=== PATIENT | female | born 1995 | race Caucasian/White ===

== ENCOUNTER 2016-03-02 13:59 | Emergency (ER) | payer OTHER ==
[2016-03-02 14:53] VITALS: BP 140/88
--- NOTE | 2016-03-02 15:10 | UC ---
HPI Febrile Illness - HPI Summary HPI Summary: complaint of headache and fever that started last night at 1900 eyes feel like they are burning entire body is achy mild sore throat denies cough, nasal congestion left lower jaw with dental pain and swelling that started yesterday poor appetite not drinking fluids denies N/V/D took some tylenol this morning without relief - History of Current Complaint Chief Complaint: UCHeadache Time Seen by Provider: 03/02/16 15:03 Hx Obtained From: Patient - Allergy/Home Medications Allergies/Adverse Reactions: Allergies Allergy/AdvReac Type Severity Reaction Status Date / Time Penicillins Allergy Severe Hives Verified 03/02/16 14:53 Azithromycin [From Zithromax] Allergy Intermediate Hives Verified 03/02/16 14:53 Amoxicillin [From Augmentin] Allergy Hives Verified 03/02/16 14:53 Cefaclor [From Ceclor] Allergy Hives Verified 03/02/16 14:53 Clavulanic Acid Allergy Hives Verified 03/02/16 14:53 [From Augmentin] Enalapril [From Vasotec] Allergy Unknown Verified 03/02/16 14:53 Reaction Details Home Medications: Home Medications Acetaminophen 1,000 mg PO PRN 03/02/16 [History] Thyroid Med* 03/02/16 [History] PMH/Surg Hx/FS Hx/Imm Hx Previously Healthy: Yes Endocrine/Hematology History: Reports: Hx Thyroid Disease Denies: Hx Anticoagulant Therapy, Hx Diabetes Cardiovascular History: Denies: Hx Congestive Heart Failure, Hx Deep Vein Thrombosis, Hx Hypertension , Hx Myocardial Infarction, Hx Pacemaker/ICD Respiratory History: Denies: Hx Asthma, Hx Chronic Obstructive Pulmonary Disease (COPD), Hx Lung Cancer GI History: Denies: Hx Gall Bladder Disease, Hx Gastrointestinal Bleed, Hx Ulcer, Hx Urosepsis History: Denies: Hx Kidney Stones, Hx Renal Disease Neurological History: Denies: Hx Dementia, Hx Migraine, Hx Seizures, Hx Transient Ischemic Attacks (TIA) Psychiatric History: Denies: Hx Anxiety, Hx Depression, Hx Schizophrenia, Hx Bipolar Disorder - Surgical History Surgery Procedure, Year, and Place: tubes in ears Infectious Disease History: No Infectious Disease History: Denies: Hx Hepatitis, Hx Human Immunodeficiency Virus (HIV), Traveled Outside the [place] in Last 30 Days - Family History Known Family History: Positive: None - Social History Alcohol Use: Occasionally Substance Use Type: Reports: None Smoking Status (MU): Never Smoked Tobacco Review of Systems Constitutional: Fever, Fatigue Skin: Negative Eyes: Negative ENT: Negative Respiratory: Negative Cardiovascular: Negative Gastrointestinal: Negative Genitourinary: Negative Motor: Negative Neurovascular: Negative Musculoskeletal: Negative Neurological: Headache Psychological: Negative All Other Systems Reviewed And Are Negative: Yes Physical Exam Triage Information Reviewed: Yes Appearance: Well-Nourished, Ill-Appearing Vital Signs: Initial Vital Signs Temp 103 F 03/02/16 14:48 Pulse 125 03/02/16 14:48 Resp 16 03/02/16 14:48 BP 140/88 03/02/16 14:48 Pulse Ox 99 03/02/16 14:48 Vital Signs Reviewed: Yes Eyes: Positive: Conjunctiva Clear ENT: Positive: Pharyngeal erythema, TMs normal. Negative: Nasal congestion, TM red Dental: Positive: Abscess @ - 18 and 19- erythematous edema in gum Neck: Positive: No Lymphadenopathy Respiratory: Positive: Lungs clear, Normal breath sounds, No respiratory distress Cardiovascular: Positive: RRR, No Murmur, Pulses Normal Abdomen Description: Positive: Nontender, No Organomegaly, Soft. Negative: CVA Tenderness (R), CVA Tenderness (L), Distended, Guarding Bowel Sounds: Positive: Present Musculoskeletal: Positive: No Edema Neurological: Positive: Alert Psychological Exam: Normal Skin Exam: Normal Re-Evaluation - Re-Evaluation First Eval Change: Improved Course/Dx - Course Course Of Treatment: exam completed. dental infection- will treat for infection. followup with Dentist. VS following ibuprofen 100.7,108HR - Febrile Illness Differential Diagnoses: Fever of Unknown Origin, GI Disease, Other: - influnza - Diagnoses Clinic Provider Diagnoses: dental abscess Discharge - Discharge Plan Condition: Stable Disposition: HOME Prescriptions: Clindamycin CAP* [Cleocin 150 MG CAP*] 150 mg PO QID #40 cap Patient Education Materials: Dental Abscess (ED), Fever in Adults (ED) Referrals: Aries Jay MD [Primary Care Provider] - Additional Instructions: Please take antibiotic as directed. call your dentist for further evaluation and treatment Increase fluids and rest Take acetaminophen or ibuprofen for fever or pain Please review your discharge instructions. If your symptoms do not improve please call your primary care provider or return to urgent care.
[2016-03-02] MEDS ORDERED: Ibuprofen TAB* 400 MG PO ONE (15:12)
== END 2016-03-02 15:45 | disposition home or self-care (01) ==
LOC: UCEAST 13:59
DX: K04.7 Periapical abscess without sinus (principal); Z88.1 Allergy status to other antibiotic agents; Z88.0 Allergy status to penicillin
CPT/HCPCS: 87502; 87651; 99212; A9270-GY; G0463

== ENCOUNTER 2016-08-27 21:37 | Emergency (ER) | payer MEDICAID, OTHER ==
[2016-08-27 22:23] LABS: Hematocrit 41 % (35-47); Hemoglobin 13.6 g/dl (12.0-16.0); Mean Corpuscular HGB Conc 33 g/dl (31-36); Mean Corpuscular Hemoglobin 29 pg (27-31); Mean Corpuscular Volume 88 fL (80-97); Mean Platelet Volume 9 um3 (7.4-10.4); Red Blood Count 4.67 10^6/ul (4.0-5.4); Red Cell Distribution Width 13 % (10.5-15); White Blood Count 13.5 10^3/ul (3.5-10.8)
[2016-08-27 22:39] LABS: ALT 17 U/L (7-52); AST 27 U/L (13-39); Albumin 4.3 g/dL (3.2-5.2); Alkaline Phosphatase 81 U/L (34-104); Anion Gap 7 mmol/L (2-11); BUN/Creatinine Ratio 12.4 (8-20); Blood Urea Nitrogen 11 mg/dL (6-24); C Reactive Protein 2.07 mg/L (< 5.00); CO2 Carbon Dioxide 23 mmol/L (22-32); Calcium 9.7 mg/dL (8.6-10.3); Chloride 105 mmol/L (101-111); EGFR Non-African American 79.3 (>60); Globulin 2.9 g/dL (2-4); Glucose 91 mg/dL (70-100); Lipase 18 U/L (11.0-82.0); Sodium 135 mmol/L (133-145); Total Protein 7.2 g/dL (6.4-8.9)
[2016-08-27 22:55] LABS: Urine Bacteria Absent (Absent); Urine Bilirubin Negative (Negative); Urine Glucose Negative (Negative); Urine Nitrite Negative (Negative)
[2016-08-27 23:05] LABS: TSH (Thyroid Stimulating Horm) 3.98 mcIU/mL (0.34-5.60)
[2016-08-28 00:05] VITALS: BP 96/64
--- NOTE | 2016-08-28 07:21 | RAD ---
INDICATION: Right upper quadrant pain. COMPARISON: Comparison is made with a prior CT of the abdomen from November 24, 2006. TECHNIQUE: Multiple real-time images of the right upper quadrant were obtained. FINDINGS: There are multiple gallstones present. No pericholecystic fluid or gallbladder wall thickening is seen. No intra or extrahepatic ductal distention is present. The common bile duct measured 0.5 cm in diameter. The liver is normal in size without significant focal abnormality. The pancreas is partially obscured by overlying bowel gas. The right kidney is normal in size without evidence for hydronephrosis. IMPRESSION: CHOLELITHIASIS WITHOUT SPECIFIC EVIDENCE FOR ACUTE CHOLECYSTITIS.
--- NOTE | 2016-08-28 08:45 | ED ---
Christopher Mireles Alfonso, scribed for Vasyl Ayala MD on 08/27/16 at 2207 . HPI Chest Pain - HPI Summary HPI Summary: This patient is a 20 year old female BIBA to [facility] c/o sharp and pressured mid sternal CP which began 90 minutes ago. The chest pain was "so bad I couldn't even breath" and has since become a dull pain. She also reports right-sided abdominal pain since a week ago. She rates the pain 5/10 in severity. Sx aggravated by movement and alleviated by nothing. She reports N/V, dizziness, and tingling in her lips and arms. She denies changes in BM, urinary symptoms, and mensural period symptoms. PMHx of thyroid disease for which she has AMA stopped taking medication. - History of Current Complaint Chief Complaint: EDAbdPain Time Seen by Provider: 08/27/16 21:55 Hx Obtained From: Patient Onset/Duration: Started Minutes Ago - 90 minutes, Still Present - Improved Timing: Constant, Lasting Minutes - 90 minutes Initial Severity: Moderate Current Severity: Moderate Pain Intensity: 5 Pain Scale Used: 0-10 Numeric Chest Pain Location: Mid Sternal Character: Dull/Aching - At present, Pressure/Squeezing - At onset, Sharp/ Stabbing - At onset Aggravating Factor(s): Movement Alleviating Factor(s): Nothing Associated Signs and Symptoms: Positive: Chest Pain - sharp and pressured mid sternal CP, Tingling - Lips and arms, Nausea, Abdominal Pain, Vomiting, Other: - Negative BM, urinary, and mensural period symptoms. - Allergy/Home Medications Allergies/Adverse Reactions: Allergies Allergy/AdvReac Type Severity Reaction Status Date / Time Penicillins Allergy Severe Hives Verified 03/02/16 14:53 Azithromycin [From Zithromax] Allergy Intermediate Hives Verified 03/02/16 14:53 Amoxicillin [From Augmentin] Allergy Hives Verified 03/02/16 14:53 Cefaclor [From Ceclor] Allergy Hives Verified 03/02/16 14:53 Clavulanic Acid Allergy Hives Verified 03/02/16 14:53 [From Augmentin] Enalapril [From Vasotec] Allergy Unknown Verified 03/02/16 14:53 Reaction Details PMH/Surg Hx/FS Hx/Imm Hx Endocrine/Hematology History: Reports: Hx Thyroid Disease Denies: Hx Anticoagulant Therapy, Hx Diabetes Cardiovascular History: Denies: Hx Congestive Heart Failure, Hx Deep Vein Thrombosis, Hx Hypertension , Hx Myocardial Infarction, Hx Pacemaker/ICD Respiratory History: Denies: Hx Asthma, Hx Chronic Obstructive Pulmonary Disease (COPD), Hx Lung Cancer GI History: Denies: Hx Gall Bladder Disease, Hx Gastrointestinal Bleed, Hx Ulcer, Hx Urosepsis History: Denies: Hx Kidney Stones, Hx Renal Disease Neurological History: Denies: Hx Dementia, Hx Migraine, Hx Seizures, Hx Transient Ischemic Attacks (TIA) Psychiatric History: Denies: Hx Anxiety, Hx Depression, Hx Schizophrenia, Hx Bipolar Disorder - Surgical History Surgery Procedure, Year, and Place: tubes in ears Infectious Disease History: No Infectious Disease History: Denies: Hx Hepatitis, Hx Human Immunodeficiency Virus (HIV), Traveled Outside the [place] in Last 30 Days - Family History Known Family History: Positive: Cardiac Disease, Diabetes - Social History Lives: With Family - Mother Alcohol Use: Occasionally Substance Use Type: Reports: None Smoking Status (MU): Never Smoked Tobacco Review of Systems Negative: Fever Positive: Chest Pain - sharp and pressured mid sternal CP that is now dull CP Positive: Abdominal Pain - right-sided abdominal pain since a week ago, Vomiting , Nausea, Other - Negative BM changes Positive: other - Negative urinary, and mensural period symptoms. Neurological: Other - Positive dizziness, and tingling in her lips and arms. All Other Systems Reviewed And Are Negative: Yes Physical Exam Triage Information Reviewed: Yes Vital Signs On Initial Exam: Initial Vitals Temp Pulse Resp BP Pulse Ox 98 F 64 16 119/67 100 08/27/16 21:48 08/27/16 21:48 08/27/16 21:48 08/27/16 21:48 08/27/16 21:48 Vital Signs Reviewed: Yes Appearance: Positive: Well-Appearing, No Pain Distress, Obese Skin: Positive: Warm, Skin Color Reflects Adequate Perfusion, Dry Head/Face: Positive: Normal Head/Face Inspection Eyes: Positive: Normal ENT: Positive: Normal ENT inspection Neck: Positive: Supple, Nontender Respiratory/Lung Sounds: Positive: Clear to Auscultation, Breath Sounds Present Cardiovascular: Positive: RRR Abdomen Description: Positive: Other: - Mildly tender in LUQ and RUQ Bowel Sounds: Positive: Present Musculoskeletal: Positive: Normal Neurological: Positive: Normal, Sensory/Motor Intact, Alert, Oriented to Person Place, Time, CN Intact II-III Psychiatric: Positive: Affect/Mood Appropriate - Cecilia Coma Scale Coma Scale Total: 15 Diagnostics - Vital Signs Vital Signs Temp Pulse Resp BP Pulse Ox 08/27/16 21:48 98 F 64 16 119/67 100 - Laboratory Lab Results: Lab Results 08/27/16 08/27/16 08/27/16 Range/Units 22:16 22:16 22:16 WBC 13.5 H (3.5-10.8) 10^3/ul RBC 4.67 (4.0-5.4) 10^6/ul Hgb 13.6 (12.0-16.0) g/dl Hct 41 (35-47) % MCV 88 (80-97) fL MCH 29 (27-31) pg MCHC 33 (31-36) g/dl RDW 13 (10.5-15) % Plt Count 250 (150-450) 10^3/ul MPV 9 (7.4-10.4) um3 Neut % (Auto) 73.2 (38-83) % Lymph % (Auto) 17.6 L (25-47) % Lewis % (Auto) 5.9 (1-9) % Eos % (Auto) 2.5 (0-6) % Baso % (Auto) 0.8 (0-2) % Absolute Neuts (auto) 9.9 H (1.5-7.7) 10^3/ul Absolute Lymphs (auto) 2.4 (1.0-4.8) 10^3/ul Absolute Monos (auto) 0.8 (0-0.8) 10^3/ul Absolute Eos (auto) 0.3 (0-0.6) 10^3/ul Absolute Basos (auto) 0.1 (0-0.2) 10^3/ul Absolute Nucleated RBC 0.01 10^3/ul Nucleated RBC % 0.1 D-Dimer, Quantitative (Less Than 230) ng/mL Sodium 135 (133-145) mmol/L Potassium 4.0 (3.5-5.0) mmol/L Chloride 105 (101-111) mmol/L Carbon Dioxide 23 (22-32) mmol/L Anion Gap 7 (2-11) mmol/L BUN 11 (6-24) mg/dL Creatinine 0.89 (0.51-0.95) mg/dL Est GFR ( Amer) 102.0 (>60) Est GFR (Non-Af Amer) 79.3 (>60) BUN/Creatinine Ratio 12.4 (8-20) Glucose 91 (70-100) mg/dL Lactic Acid 1.0 (0.5-2.0) mmol/L Calcium 9.7 (8.6-10.3) mg/dL Total Bilirubin 0.50 (0.2-1.0) mg/dL AST 27 (13-39) U/L ALT 17 (7-52) U/L Alkaline Phosphatase 81 (34-104) U/L Troponin I 0.00 (<0.04) ng/mL C-Reactive Protein 2.07 (< 5.00) mg/L Total Protein 7.2 (6.4-8.9) g/dL Albumin 4.3 (3.2-5.2) g/dL Globulin 2.9 (2-4) g/dL Albumin/Globulin Ratio 1.5 (1-3) Lipase 18 (11.0-82.0) U/L TSH 3.98 (0.34-5.60) mcIU/mL Beta HCG, Quant < 0.60 mIU/mL Urine Color Urine Appearance Urine pH (5-9) Ur Specific [place] (1.010-1.030) Urine Protein (Negative) Urine Ketones (Negative) Urine Blood (Negative) Urine Nitrate (Negative) Urine Bilirubin (Negative) Urine Urobilinogen (Negative) Ur Leukocyte Esterase (Negative) Urine WBC (Auto) (Absent) Urine RBC (Auto) (Absent) Ur Squamous Epith Cells (Absent) Urine Bacteria (Absent) Urine Glucose (Negative) 08/27/16 08/27/16 Range/Units 22:16 22:42 WBC (3.5-10.8) 10^3/ul RBC (4.0-5.4) 10^6/ul Hgb (12.0-16.0) g/dl Hct (35-47) % MCV (80-97) fL MCH (27-31) pg MCHC (31-36) g/dl RDW (10.5-15) % Plt Count (150-450) 10^3/ul MPV (7.4-10.4) um3 Neut % (Auto) (38-83) % Lymph % (Auto) (25-47) % Lewis % (Auto) (1-9) % Eos % (Auto) (0-6) % Baso % (Auto) (0-2) % Absolute Neuts (auto) (1.5-7.7) 10^3/ul Absolute Lymphs (auto) (1.0-4.8) 10^3/ul Absolute Monos (auto) (0-0.8) 10^3/ul Absolute Eos (auto) (0-0.6) 10^3/ul Absolute Basos (auto) (0-0.2) 10^3/ul Absolute Nucleated RBC 10^3/ul Nucleated RBC % D-Dimer, Quantitative < 200 (Less Than 230) ng/mL Sodium (133-145) mmol/L Potassium (3.5-5.0) mmol/L Chloride (101-111) mmol/L Carbon Dioxide (22-32) mmol/L Anion Gap (2-11) mmol/L BUN (6-24) mg/dL Creatinine (0.51-0.95) mg/dL Est GFR ( Amer) (>60) Est GFR (Non-Af Amer) (>60) BUN/Creatinine Ratio (8-20) Glucose (70-100) mg/dL Lactic Acid (0.5-2.0) mmol/L Calcium (8.6-10.3) mg/dL Total Bilirubin (0.2-1.0) mg/dL AST (13-39) U/L ALT (7-52) U/L Alkaline Phosphatase (34-104) U/L Troponin I (<0.04) ng/mL C-Reactive Protein (< 5.00) mg/L Total Protein (6.4-8.9) g/dL Albumin (3.2-5.2) g/dL Globulin (2-4) g/dL Albumin/Globulin Ratio (1-3) Lipase (11.0-82.0) U/L TSH (0.34-5.60) mcIU/mL Beta HCG, Quant mIU/mL Urine Color Yellow Urine Appearance Clear Urine pH 7.0 (5-9) Ur Specific [place] 1.021 (1.010-1.030) Urine Protein Negative (Negative) Urine Ketones Negative (Negative) Urine Blood Negative (Negative) Urine Nitrate Negative (Negative) Urine Bilirubin Negative (Negative) Urine Urobilinogen Negative (Negative) Ur Leukocyte Esterase Trace H (Negative) Urine WBC (Auto) Trace(0-5/hpf) (Absent) Urine RBC (Auto) 1+(3-5/hpf) H (Absent) Ur Squamous Epith Cells Present H (Absent) Urine Bacteria Absent (Absent) Urine Glucose Negative (Negative) Result Diagrams: 08/27/16 22:16 08/27/16 22:16 Lab Statement: Any lab studies that have been ordered have been reviewed, and results considered in the medical decision making process. - EKG 2226 Cardiac Rate: NL - BPM 57 EKG Rhythm: Sinus Rhythm - Additional Comments Diagnostic Additional Comments: US Gallbladder : Pending official radiologist interpretation. Chest Pain Course/Dx - Course Course Of Treatment: was feeling a bit better by the time she got to the ED. She had had vague abdominal pain for several days and then had sudden low midsternal CP about 90 minutes prior to arrival. Her exam revealed some mild tenderness in the epigastrium and RUQ. Labs were negative including a d- dimer and U/S of her gallbladder is pending. Assuming that is negative, i expect she will be D/C'd. She likely had some reflux or biliary colic. - Diagnoses Provider Diagnoses: Epigastric abdominal pain Discharge - Discharge Plan Condition: Stable Disposition: HOME Patient Education Materials: Biliary Colic (ED), Abdominal Pain (ED) Referrals: Mitch Galvez MD [Medical Doctor] - If Needed Aries Jay MD [Primary Care Provider] - 3 Days Additional Instructions: Follow a bland diet. Follow up with surgery (Dr. Galvez) if needed. The documentation as recorded by the Christopher johnson Alfonso accurately reflects the service I personally performed and the decisions made by me, Vasyl Ayala MD.
--- NOTE | 2016-09-10 06:27 | ED ---
Deshawn Mireles Rebecca, scribed for Christopher Lee MD on 08/28/16 at 0008 . Progress - Progress Note Progress Note: Pt was signed out from Dr. Ayala. Gallbladder US reveals: Cholelithiasis seen on decubitus images. NO mural thickening or pericholecystic fluid seen. Normal appearance of the liver, CBD and right kidney. Re-Evaluation - Re-Evaluation First Eval Re-Evaluation Time: 00:17 Change: Improved Comment: Discussed US results and D/C plan with pt. Course/Dx - Course Course Of Treatment: Pt will be D/C to home with Dx of biliary colic and a follow up with surgery, as needed with instructions to follow a bland diet. - Diagnoses Provider Diagnoses: Biliary colic The documentation as recorded by the Deshawn johnson Rebecca accurately reflects the service I personally performed and the decisions made by , Christopher Lee MD.
== END 2016-08-28 00:25 | disposition home or self-care (01) ==
LOC: ED 21:37
DX: K80.50 Calculus of bile duct without cholangitis or cholecystitis without obstruction (principal); R10.13 Epigastric pain; R11.2 Nausea with vomiting, unspecified; R42 Dizziness and giddiness; Z32.02 Encounter for pregnancy test, result negative; R20.2 Paresthesia of skin; E07.9 Disorder of thyroid, unspecified; Z88.1 Allergy status to other antibiotic agents; Z88.0 Allergy status to penicillin
CPT/HCPCS: 36415; 76705; 80053; 81003; 81015; 83605; 83690; 84443; 84484; 84702; 85025; 85379; 86140; 87086; 93005; 99283

== ENCOUNTER 2016-09-16 10:54 | Emergency (ER) | payer MEDICAID ==
[2016-09-16 11:14] VITALS: BP 122/77
--- NOTE | 2016-09-16 11:27 | UC ---
Abdominal Pain Female HPI - HPI Summary HPI Summary: Pt is a 20 yo female presents with report of tactile fever last night. Pt states took APAP atpprox 6am with relief. Pt denies any pain. Pt denies cp, sob , abd pain. Pt reports occasional nausea with po. Pt state was diagnosed with gallstones approx 1 month ago. Pt awaiting for referral to surgery through her doctor at [facility]. Pt states read online that gallstone can become infected and then pts develop fever, so pt came for eval of this. Pt without any complaints at time of eval Pt's medications reviewed at this visit. - History of Current Complaint Chief Complaint: UCChestPain Stated Complaint: CHEST PAIN,CHEST CONGESTION Time Seen by Provider: 09/16/16 11:20 Hx Obtained From: Patient, Medical Records ?: No Onset/Duration: Gradual Onset Timing: Constant Severity Initially: Mild Location: Other - no pain at present Aggravating Factor(s): Food Alleviating Factor(s): Other: - apap for fever Associated Signs and Symptoms: Positive: Fever. Negative: Diaphoresis, Cough, Constipation Allergies/Adverse Reactions: Allergies Allergy/AdvReac Type Severity Reaction Status Date / Time Penicillins Allergy Severe Hives Verified 03/02/16 14:53 Azithromycin [From Zithromax] Allergy Intermediate Hives Verified 03/02/16 14:53 Amoxicillin [From Augmentin] Allergy Hives Verified 03/02/16 14:53 Cefaclor [From Ceclor] Allergy Hives Verified 03/02/16 14:53 Clavulanic Acid Allergy Hives Verified 03/02/16 14:53 [From Augmentin] Enalapril [From Vasotec] Allergy Unknown Verified 03/02/16 14:53 Reaction Details PMH/Surg Hx/FS Hx/Imm Hx Previously Healthy: Yes Other History Of: Negative For: HIV, Hepatitis B, Hepatitis C, Anticoagulant Therapy - Surgical History Surgical History: Yes Surgery Procedure, Year, and Place: tubes in ears - Family History Known Family History: Positive: Cardiac Disease, Diabetes - Social History Occupation: Employed Full-time Lives: With Family Alcohol Use: Occasionally Substance Use Type: None Smoking Status (MU): Never Smoked Tobacco - Immunization History Most Recent Influenza Vaccination: 02/22/14 Most Recent Tetanus Shot: 04/26/14 Most Recent Pneumonia Vaccination: none Review of Systems Constitutional: Fever Skin: Negative Eyes: Negative ENT: Negative Respiratory: Negative Cardiovascular: Negative Gastrointestinal: Negative Genitourinary: Negative Motor: Negative Neurovascular: Negative Musculoskeletal: Negative Neurological: Negative Psychological: Negative All Other Systems Reviewed And Are Negative: Yes Physical Exam Triage Information Reviewed: Yes Appearance: Well-Appearing, No Pain Distress, Well-Nourished Vital Signs: Initial Vital Signs Temp 97.7 F 09/16/16 11:05 Pulse 93 09/16/16 11:05 Resp 16 09/16/16 11:05 BP 122/77 09/16/16 11:05 Pulse Ox 100 09/16/16 11:05 Eye Exam: Normal Eyes: Positive: Conjunctiva Clear, Conjunctiva Inflamed ENT Exam: Normal ENT: Positive: Normal ENT inspection, Nasal congestion, TMs normal - manual removed cerumen left ear - soft TM and canal wnl Dental Exam: Normal Neck exam: Normal Neck: Positive: Supple, Nontender, No Lymphadenopathy Respiratory Exam: Normal Respiratory: Positive: Chest non-tender, Lungs clear, Normal breath sounds, No respiratory distress Cardiovascular Exam: Normal Cardiovascular: Positive: RRR, No Murmur, Pulses Normal Abdominal Exam: Normal Abdomen Description: Positive: Nontender - abd soft + BS neg Dixon's no guarding, no rebound, No Organomegaly, Soft, Bruit Bowel Sounds: Positive: Present Musculoskeletal Exam: Normal Musculoskeletal: Positive: Strength Intact Neurological Exam: Normal Neurological: Positive: Alert, Muscle Tone Normal Psychological Exam: Normal Psychological: Positive: Normal Response To Family Skin Exam: Normal Abd Pain Female Course/Dx - Course Course Of Treatment: Pt with episode of fever last night. Pt with h/o gallstones. Pt with stable vital signs and non concerning exam without pain. reviewed at length precautions with pt. will discharge home with referral to surgery. pt comfortable and in agreement with plan - Differential Dx/Diagnosis Provider Diagnoses: fever - resolved. gall stones Discharge - Discharge Plan Condition: Stable Disposition: HOME Patient Education Materials: Gallstones (ED), Fever in Adults (ED) Referrals: Mynor Danielle MD [Medical Doctor] - Aries Jay MD [Primary Care Provider] - Additional Instructions: - Stay well hydrated. Drink plenty of non-alcoholic, non-caffinated beverage - Eat small, frequent meals. Avoid fatty foods (dairy products, fried foods) - Okay to alternate ibuprofen (advil, motrin) and tylenol every 3 hours for fever. Take with food - If you develop right upper belly pain with fever, vomiting, uncontrolled pain - it is recommended you go to the emergency department - you have been given the name of a surgeon for referral of your gallstones - you may contact this surgeon or follow-up with your provider with [facility]
== END 2016-09-16 12:01 | disposition home or self-care (01) ==
LOC: UCEAST 10:54
DX: R50.9 Fever, unspecified (principal); K80.80 Other cholelithiasis without obstruction
CPT/HCPCS: 93005; 99211; G0463

== ENCOUNTER 2016-10-02 20:49 | Emergency (ER) | payer MEDICAID ==
[2016-10-02 21:05] VITALS: BP 134/99
--- NOTE | 2016-10-02 21:25 | RAD ---
INDICATION: Intracranial injury COMPARISON: CT brain March 01, 2013 TECHNIQUE: Noncontrast axial source images were acquired from the skull base to the vertex. FINDINGS: Ventricles/sulci: The ventricles and cisterns are normal in size and configuration for age. Brain parenchyma: There is no focal parenchymal finding, evidence of intracranial mass, or intracranial mass effect. Intracranial hemorrhage:None. Extra-axial spaces: There are no abnormal extra axial fluid collections or evidence of extra-axial mass. Calvarium: There is no calvarial fracture or other calvarial abnormality. Scalp: There is no evidence of scalp or extracalvarial soft tissue abnormality. Paranasal sinuses/mastoid: The paranasal sinuses and mastoid air cells are clear. Other: None. IMPRESSION: NEGATIVE EXAMINATION
--- NOTE | 2016-10-02 21:32 | UC ---
Head Injury HPI - HPI Summary HPI Summary: Pt was sleeping on her side 4 days ago, child dropped a bottle of iced tea onto her L frontal skull from a height of 4-5 feet. No amnesia, LOC, vomiting, or confusion. Remembers entire event, no dizziness. Since then has mild SCALES and blurred vision on left side of L visual field, especially at lateral extremes of gaze. No diplopia. - History Of Current Complaint Hx Obtained From: Patient Hx Last Menstrual Period: Currently menstruating ?: No Onset/Duration: Sudden Onset Severity Currently: Mild Character: Dull, Pressure Aggravating Factor(s): Nothing Alleviating Factor(s): Nothing Associated Signs And Symptoms: Negative: Confusion, Memory Loss, Seizure, Neck Pain, Nausea, Vomiting <Gloria Schroeder - Last Filed: 10/02/16 21:26> <Daniela Dickinson - Last Filed: 10/02/16 22:13> - History Of Current Complaint Chief Complaint: UCHeadInjury Stated Complaint: HEAD INJURY/BLURRY VISION Time Seen by Provider: 10/02/16 21:14 - Allergies/Home Medications Allergies/Adverse Reactions: Allergies Allergy/AdvReac Type Severity Reaction Status Date / Time Penicillins Allergy Severe Hives Verified 03/02/16 14:53 Azithromycin [From Zithromax] Allergy Intermediate Hives Verified 03/02/16 14:53 Amoxicillin [From Augmentin] Allergy Hives Verified 03/02/16 14:53 Cefaclor [From Ceclor] Allergy Hives Verified 03/02/16 14:53 Clavulanic Acid Allergy Hives Verified 03/02/16 14:53 [From Augmentin] Enalapril [From Vasotec] Allergy Unknown Verified 03/02/16 14:53 Reaction Details Home Medications: Home Medications Advil Liquigels 1 cap PO PRN 10/02/16 [History] PMH/Surg Hx/FS Hx/Imm Hx Previously Healthy: Yes Other History Of: Negative For: HIV, Hepatitis B, Hepatitis C, Anticoagulant Therapy - Surgical History Surgical History: Yes Surgery Procedure, Year, and Place: tubes in ears - Family History Known Family History: Positive: Cardiac Disease, Diabetes - Social History Lives: With Family Alcohol Use: Occasionally Substance Use Type: None Smoking Status (MU): Never Smoked Tobacco - Immunization History Most Recent Influenza Vaccination: 12/24/14 Most Recent Tetanus Shot: 04/26/14 Most Recent Pneumonia Vaccination: none <Gloria Schroeder - Last Filed: 10/02/16 21:26> Review of Systems Constitutional: Negative Skin: Negative Eyes: Blurred Vision ENT: Negative Respiratory: Negative Cardiovascular: Negative Gastrointestinal: Negative Genitourinary: Negative Motor: Negative Neurovascular: Negative Musculoskeletal: Negative Neurological: Headache Psychological: Negative All Other Systems Reviewed And Are Negative: Yes <Gloria Schroeder - Last Filed: 10/02/16 21:26> Physical Exam Triage Information Reviewed: Yes Appearance: Well-Appearing, No Pain Distress, Well-Nourished Vital Signs: Initial Vital Signs Temp 98.6 F 10/02/16 20:59 Pulse 70 10/02/16 20:59 Resp 18 10/02/16 20:59 BP 134/99 10/02/16 20:59 Pulse Ox 99 10/02/16 20:59 Vital Signs Reviewed: Yes Eye Exam: Other - PERRL, EOM-I Eyes: Positive: Conjunctiva Clear, Other: - limited fundoscopic exam, no bleeding in retina noted ENT Exam: Normal ENT: Positive: Normal ENT inspection, Hearing grossly normal, Pharynx normal, TMs normal Dental Exam: Normal Neck exam: Normal Neck: Positive: Supple, Nontender, No Lymphadenopathy Respiratory Exam: Normal Respiratory: Positive: Chest non-tender, Lungs clear, Normal breath sounds, No respiratory distress, No accessory muscle use Cardiovascular Exam: Normal Cardiovascular: Positive: RRR, No Murmur Musculoskeletal Exam: Normal Neurological Exam: Normal Neurological: Positive: Alert Psychological Exam: Normal Skin Exam: Normal <Gloria Schroeder - Last Filed: 10/02/16 21:26> Vital Signs: Initial Vital Signs Temp 98.6 F 10/02/16 20:59 Pulse 70 10/02/16 20:59 Resp 18 10/02/16 20:59 BP 134/99 10/02/16 20:59 Pulse Ox 99 10/02/16 20:59 <Daniela Dickinson - Last Filed: 10/02/16 22:13> Head Injury Course/Dx - Differential Dx/Diagnosis Provider Diagnoses: head contusion. blurred vision. elevated blood pressure due to discomfort <Gloria Schroeder - Last Filed: 10/02/16 21:26> Discharge <Gloria Schroeder - Last Filed: 10/02/16 21:26> <Daniela Dickinson - Last Filed: 10/02/16 22:13> - Discharge Plan Condition: Stable Disposition: HOME Patient Education Materials: Scalp Contusion in Adults (ED), Blurred Vision (ED ) Referrals: Bry oMrales MD [Medical Doctor] - Ray Turner MD [Medical Doctor] - 1 Week Additional Instructions: If Dr. Turner can't see you urgently, try calling [facility] for an appointment. If they cannot see you, please call here for help. I expect your headache to improve within the next couple of days. You can take ibuprofen or acetaminophen as needed. Attestation Statement User Type: Provider - I was available for consult. This patient was seen by the NITZA. The patient was not presented to, seen by, or examined by me. -Olivia <Dainela Dickinson - Last Filed: 10/02/16 22:13>
== END 2016-10-02 21:40 | disposition home or self-care (01) ==
LOC: UCEAST 20:49
DX: H53.8 Other visual disturbances (principal); S00.93XA Contusion of unspecified part of head, initial encounter; R03.0 Elevated blood-pressure reading, without diagnosis of hypertension; W20.8XXA Other cause of strike by thrown, projected or falling object, initial encounter; Y92.9 Unspecified place or not applicable; Z88.0 Allergy status to penicillin
CPT/HCPCS: 70450; 99211; G0463

== ENCOUNTER 2016-10-06 14:43 | Observation (INO) | payer MEDICAID, OTHER ==
[2016-10-06] MEDS ORDERED: Aspirin Low Dose CHEW TAB* 81 MG PO ONE (16:20)
[2016-10-06] MEDS ORDERED: NS 0.9% 1000 ML* 1,000 ML IV ONE (18:01)
[2016-10-06] MEDS ORDERED: Ondansetron INJ* 2 MG/ML VIAL IV ONE (18:01)
[2016-10-06 18:10] LABS: Hematocrit 39 % (35-47); Hemoglobin 13.1 g/dl (12.0-16.0); Mean Corpuscular HGB Conc 33 g/dl (31-36); Mean Corpuscular Hemoglobin 30 pg (27-31); Mean Corpuscular Volume 89 fL (80-97); Mean Platelet Volume 8 um3 (7.4-10.4); Red Blood Count 4.45 10^6/ul (4.0-5.4); Red Cell Distribution Width 14 % (10.5-15); White Blood Count 6.8 10^3/ul (3.5-10.8)
--- NOTE | 2016-10-06 18:17 | ED ---
Abdominal Pain/Female - HPI Summary HPI Summary: 20F presents with abdominal pain today. She states she had sternal chest pain but that resolved and then the abdominal pain started. She states her pain is greatest in epigastric region but is radiating to the rest of her abdomen. She denies any v/d/c. She admits to nausea. She has surgery for her gallbladder scheduled on Oct 21 as has history of gallstones. The chest pain resolved in 20 mins. She has history of chest pain and states this feels the same. She denies any SOB or palpitations. She states she has never had this abdominal pain before. She denies any previous surgeries. She did not taken anything for her pain. She denies any dysuria, hematuria, flank pain, or vaginal discharge. She denies any family history of CAD. - History of Current Complaint Chief Complaint: EDChestPainROMI Stated Complaint: CHEST/STOMACH PAIN Time Seen by Provider: 10/06/16 17:41 Hx Last Menstrual Period: Currently menstruating Pain Intensity: 6 Allergies/Adverse Reactions: Allergies Allergy/AdvReac Type Severity Reaction Status Date / Time Penicillins Allergy Severe Hives Verified 10/06/16 20:45 Azithromycin [From Zithromax] Allergy Intermediate Hives Verified 10/06/16 20:45 Amoxicillin [From Augmentin] Allergy Hives Verified 10/06/16 20:45 Cefaclor [From Ceclor] Allergy Hives Verified 10/06/16 20:45 Clavulanic Acid Allergy Hives Verified 10/06/16 20:45 [From Augmentin] Enalapril [From Vasotec] Allergy Unknown Verified 10/06/16 20:45 Reaction Details Home Medications: Home Medications NK [No Home Medications Reported] 10/06/16 [History Confirmed 10/06/16] PMH/Surg Hx/FS Hx/Imm Hx Endocrine/Hematology History: Reports: Hx Thyroid Disease Denies: Hx Anticoagulant Therapy, Hx Diabetes Cardiovascular History: Denies: Hx Congestive Heart Failure, Hx Deep Vein Thrombosis, Hx Hypertension , Hx Myocardial Infarction, Hx Pacemaker/ICD Respiratory History: Denies: Hx Asthma, Hx Chronic Obstructive Pulmonary Disease (COPD), Hx Lung Cancer GI History: Denies: Hx Gall Bladder Disease, Hx Gastrointestinal Bleed, Hx Ulcer, Hx Urosepsis History: Denies: Hx Kidney Stones, Hx Renal Disease Neurological History: Denies: Hx Dementia, Hx Migraine, Hx Seizures, Hx Transient Ischemic Attacks (TIA) Psychiatric History: Denies: Hx Anxiety, Hx Depression, Hx Schizophrenia, Hx Bipolar Disorder - Surgical History Surgery Procedure, Year, and Place: tubes in ears Infectious Disease History: Yes Infectious Disease History: Denies: Hx Clostridium Difficile, Hx Hepatitis, Hx Human Immunodeficiency Virus (HIV), Hx of Known/Suspected MRSA, Hx Shingles, Hx Tuberculosis, Hx Known/ Suspected VRE, Hx Known/Suspected VRSA, History Other Infectious Disease, Traveled Outside the [place] in Last 30 Days - Family History Known Family History: Positive: Cardiac Disease, Diabetes - Social History Alcohol Use: Occasionally Substance Use Type: Reports: None Smoking Status (MU): Never Smoked Tobacco Review of Systems Negative: Fever Positive: Chest Pain Negative: Shortness Of Breath, Cough Positive: Abdominal Pain, Nausea. Negative: Vomiting, Diarrhea All Other Systems Reviewed And Are Negative: Yes Physical Exam Triage Information Reviewed: Yes Vital Signs On Initial Exam: Initial Vitals Temp Pulse Resp BP Pulse Ox 98.2 F 80 17 124/86 100 10/06/16 14:56 10/06/16 14:56 10/06/16 14:56 10/06/16 14:56 10/06/16 14:56 Vital Signs Reviewed: Yes Appearance: Positive: Well-Appearing Skin: Positive: Warm, Dry Head/Face: Positive: Normal Head/Face Inspection Eyes: Positive: Normal, EOMI, CHRISTINA, Conjunctiva Clear ENT: Positive: Normal ENT inspection, Pharynx normal, TMs normal Respiratory/Lung Sounds: Positive: Clear to Auscultation, Breath Sounds Present Cardiovascular: Positive: Normal, RRR Abdomen Description: Positive: Soft, Other: - diffuse tenderness greatest in epigastric region, neg serrano Bowel Sounds: Positive: Present - Mohler Coma Scale Coma Scale Total: 15 Diagnostics - Vital Signs Vital Signs Temp Pulse Resp BP Pulse Ox 10/06/16 17:46 97.3 F 66 13 151/85 100 10/06/16 16:11 97.8 F 78 18 126/85 100 10/06/16 14:56 98.2 F 80 17 124/86 100 - Laboratory Lab Results: Lab Results 10/06/16 Range/Units 18:01 WBC 6.8 (3.5-10.8) 10^3/ul RBC 4.45 (4.0-5.4) 10^6/ul Hgb 13.1 (12.0-16.0) g/dl Hct 39 (35-47) % MCV 89 (80-97) fL MCH 30 (27-31) pg MCHC 33 (31-36) g/dl RDW 14 (10.5-15) % Plt Count 304 (150-450) 10^3/ul MPV 8 (7.4-10.4) um3 Neut % (Auto) 64.4 (38-83) % Lymph % (Auto) 26.0 (25-47) % [place] % (Auto) 6.2 (1-9) % Eos % (Auto) 2.1 (0-6) % Baso % (Auto) 1.3 (0-2) % Absolute Neuts (auto) 4.4 (1.5-7.7) 10^3/ul Absolute Lymphs (auto) 1.8 (1.0-4.8) 10^3/ul Absolute Monos (auto) 0.4 (0-0.8) 10^3/ul Absolute Eos (auto) 0.1 (0-0.6) 10^3/ul Absolute Basos (auto) 0.1 (0-0.2) 10^3/ul Absolute Nucleated RBC 0.01 10^3/ul Nucleated RBC % 0.1 Result Diagrams: 10/06/16 18:01 10/06/16 18:01 Lab Statement: Any lab studies that have been ordered have been reviewed, and results considered in the medical decision making process. - EKG No standard instances Cardiac Rate: NL EKG Rhythm: Sinus Rhythm ST Segment: Normal Abdominal Pain Fem Course/Dx - Course Course Of Treatment: 20F presents with abdominal pain today. She states she had sternal chest pain but that resolved and then the abdominal pain started. She states her pain is greatest in epigastric region but is radiating to the rest of her abdomen. She denies any v/d/c. She admits to nausea. She has surgery for her gallbladder scheduled on Oct 21 as has history of gallstones. The chest pain resolved in 20 mins. She has history of chest pain and states this feels the same. She denies any SOB or palpitations. on exam neg chest wall tenderness. ekg normal. tenderness abdominal diffusely greatest in epigastric region, neg serrano. dr fernando called and said should be admitted for repeat LFT in morning due to being elevated and then will potential do surgery or ERCP. patient understands and agrees with plan. - Diagnoses Differential Diagnosis: Positive: Appendicitis, Gall Bladder Disease, Other - gastroenteritis Provider Diagnoses: Chest pain, Abdominal pain, Cholelithiasis - Provider Notifications Discussed Care Of Patient With: dr fernando Time Discussed With Above Provider: 20:27 - patient should be admitted for potential surgery vs ERCP in morning Discharge - Discharge Plan Condition: Stable Disposition: ADMITTED TO [facility]
[2016-10-06] MEDS ORDERED: Ketorolac INJ* 30 MG/ML 1 ML VIAL IV PUSH ONE (18:20)
[2016-10-06 18:26] LABS: ALT 396 U/L (7-52); AST 381 U/L (13-39); Albumin 4.5 g/dL (3.2-5.2); Alkaline Phosphatase 217 U/L (34-104); Anion Gap 6 mmol/L (2-11); BUN/Creatinine Ratio 9.2 (8-20); Blood Urea Nitrogen 6 mg/dL (6-24); CO2 Carbon Dioxide 27 mmol/L (22-32); Calcium 9.3 mg/dL (8.6-10.3); Chloride 103 mmol/L (101-111); EGFR African American 146.6 (>60); Globulin 3.4 g/dL (2-4); Glucose 96 mg/dL (70-100); Lipase 17 U/L (11.0-82.0); Sodium 136 mmol/L (133-145); Total Protein 7.9 g/dL (6.4-8.9)
--- NOTE | 2016-10-06 19:03 | RAD ---
HISTORY: Right upper quadrant pain. COMPARISONS: Similar examination August 27, 2016 TECHNIQUE: Multiple transverse and longitudinal ultrasound images were obtained of the right upper quadrant. FINDINGS: LIVER: The liver is normal in dimensions and echogenicity. Normal hepatic and portal venous blood flow is duplicated with color flow imaging. There is no gross intrahepatic biliary duct dilatation. GALLBLADDER AND EXTRAHEPATIC BILIARY DUCT: Mobile echogenic and shadowing stones are noted in the gallbladder lumen. There is no pericholecystic fluid or gallbladder wall thickening. The common bile duct measures a maximum diameter of 5 mm. PANCREAS: The portions of the pancreas not obscured by bowel gas are normal in appearance. RIGHT KIDNEY: The right kidney is normal in size, morphology and echogenicity. AORTA AND IVC: The visualized portions are normal in appearance and not pathologically dilated. IMPRESSION: CHOLELITHIASIS WITHOUT SIGNS OF ACUTE INFLAMMATORY CHANGE OR BILIARY OBSTRUCTION.
[2016-10-06] MEDS ORDERED: Ondansetron INJ* 2 MG/ML VIAL IV PRN (20:50)
[2016-10-06] MEDS ORDERED: HYDROmorphone* 1 MG/ML 1 ML SYR IV SLOW PU PRN (20:55)
[2016-10-06] MEDS: NS 0.9% 1000 ML* 1,000 ML IV SCH (22:23)
[2016-10-07 05:58] LABS: Hematocrit 35 % (35-47); Hemoglobin 11.8 g/dl (12.0-16.0); Mean Corpuscular HGB Conc 34 g/dl (31-36); Mean Corpuscular Hemoglobin 30 pg (27-31); Mean Corpuscular Volume 89 fL (80-97); Mean Platelet Volume 8 um3 (7.4-10.4); Red Blood Count 3.95 10^6/ul (4.0-5.4); Red Cell Distribution Width 14 % (10.5-15); White Blood Count 5.6 10^3/ul (3.5-10.8)
[2016-10-07 06:13] LABS: Albumin 3.4 g/dL (3.2-5.2); BUN/Creatinine Ratio 7.2 (8-20); Calcium 8.2 mg/dL (8.6-10.3); Direct Bilirubin 0.5 mg/dL (0.03-0.18); EGFR African American 136.8 (>60); EGFR Non-African American 106.4 (>60); Globulin 2.5 g/dL (2-4); Indirect Bilirubin 0.5 mg/dL (0.3-1.0); Potassium 3.9 mmol/L (3.5-5.0); Total Protein 5.9 g/dL (6.4-8.9)
[2016-10-07] MEDS: NS 0.9% 1000 ML* 1,000 ML IV SCH (06:20)
[2016-10-07] MEDS ORDERED: Famotidine IV* 10 MG/ML 2 ML (20 mg) IV SLOW PU ONE (07:32)
--- NOTE | 2016-10-07 08:36 | HP ---
HISTORY AND PHYSICAL: DATE OF ADMISSION: 10/06/16 CHIEF COMPLAINT: Epigastric and right upper quadrant abdominal pain radiating up into her chest. HISTORY OF PRESENT ILLNESS: Ms. Belinda Franz is a very pleasant 20-year-old woman with known gallstones, who has been scheduled for an elective laparoscopic cholecystectomy with Dr. Mynor Danielle on 10/21, who developed severe epigastric and chest discomfort yesterday afternoon and presented to the emergency room for further care and evaluation. She has had several episodes of this over the past several months thus prompting a workup in July, which included an ultrasound of her gallbladder, which showed cholelithiasis with multiple gallstones, but no pericholecystic fluid or gallbladder wall thickening. The common bile duct measured 0.5 cm in diameter. She also underwent a cardiac evaluation, which was normal also in the recent past during one of her episodes. On review of her laboratory studies, she has had normal liver transaminases and bilirubin and no elevated white blood cell count. Last night when seen in the emergency room, she was noted to be afebrile. An EKG was read as normal sinus rhythm without acute changes. Her troponin levels were normal. She was noted to have a total bilirubin of 2.5, elevated AST and ALT of 381 and 396 respectively with alkaline phosphatase 217. Her lipase is normal. Beta- hCG was also normal. Gallbladder ultrasound was repeated. This showed once again cholelithiasis without signs of acute inflammatory change or biliary duct obstruction with the common bile duct measuring 5 mm. At this time in light of her persistent abdominal pain and elevated liver function studies, she was admitted last night for further care and probable cholecystectomy today. PAST MEDICAL HISTORY: Hypothyroidism, personally not taking her Synthroid medicines or Synthroid, but she has not taken this in several weeks. PAST SURGICAL HISTORY: Tubes in the ear. She has had no abdominal surgery. ALLERGIES: PENICILLIN, AZITHROMYCIN, AMOXICILLIN, CEFACLOR, CLAVULANIC ACID, and ENALAPRIL. SOCIAL HISTORY: She does not smoke. She drinks alcohol on a social basis. She is not presently employed. She has two young children, ages 2 and 5. REVIEW OF SYSTEMS: Cerebrovascular: No dizziness or visual disturbance. Cardiovascular: She has no cardiac chest pain and discomfort as per above. Pulmonary: No wheezing or hemoptysis. GI: As per above. She has not had prior abdominal surgery. : No urgency or hematuria. PHYSICAL EXAMINATION GENERAL: She is a well-developed, slightly overweight female, appears to be pleasant, in no apparent distress. VITAL SIGNS: Temperature 98, pulse 50, blood pressure 103/61, respirations 18. HEENT: Sclerae are anicteric. LUNGS: Clear to auscultation with normal respiratory effort. HEART: Regular rate and rhythm without murmurs, rubs, or gallops. ABDOMEN: Soft, nondistended. No prior surgical incisions or hernias. She had diminished bowel sounds throughout. She has some mild tenderness in the epigastrium and right upper quadrant without mass, rebound, or guarding. PSYCHIATRIC: She is awake, alert, and oriented x3. She has normal judgment and insight. DIAGNOSTIC STUDIES/LAB DATA: Repeat laboratory values done this morning showed a total bilirubin down to 1 and a direct bilirubin component of 0.5. AST and ALT are down to 208 and 317 with an alkaline phosphatase of 172. IMPRESSION: Cholelithiasis with several episodes of biliary colic over the past several months. She has been originally scheduled for surgery for an elective laparoscopic cholecystectomy on 10/21 and returned to the emergency room last night with epigastric and chest pain, noted to have elevated total bilirubin and ultrasound without finding consistent with acute cholecystitis, however. White blood cell count is also normal. She feels better today and her liver profile results are trending downward. Initially, it appears that she most likely had passed a stone and now is feeling better, but last night it was not possible to determine if the obstruction would persist requiring further evaluation such as an MRCP, thus she was admitted for observation and pain management overnight with plans for appropriate workup depending on laboratory results done today. PLAN: In light of her normalizing liver profile, the plan today will be to proceed with a laparoscopic cholecystectomy with a possible cholangiogram depending on the findings at surgery. She will be kept n.p.o. IV fluids have been started. She has not been given IV antibiotics but will receive preoperative antibiotics. Dr. Danielle is available to proceed with the cholecystectomy today and I informed her of this. The procedure and plans were discussed with her and she is in agreement. The surgical risks including bleeding, infection, abscess formation, and an open procedure and injury to peritoneal and retroperitoneal structures, as well as general anesthetic risks and deep vein thrombosis were all explained. [id number]/[facility] #: [id number] [facility]NING HOSPITALCharli
[2016-10-07] MEDS ORDERED: Atracurium* 10 MG/ML 10 ML VIAL ONE (10:06)
[2016-10-07] MEDS ORDERED: fentaNYL* 50 MCG/ML 2 ML VIAL (100 MCG VIAL) ONE ×2 (10:06→13:43)
[2016-10-07] MEDS ORDERED: KETAMINE HCL* 50 MG/ML 10 ML VIAL ONE (10:07)
[2016-10-07] MEDS ORDERED: Midazolam* 1 MG/ML 5 ML VIAL (5 MG) ONE (10:07)
[2016-10-07] MEDS ORDERED: PROCHLORPERAZINE INJ 5 MG/ML 2 ML VIAL IV PRN (10:24)
[2016-10-07] MEDS ORDERED: Scopolamine 1.5 mg* PATCH TRANSDERM PRN (10:24)
[2016-10-07] MEDS ORDERED: Morphine INJ* 2 MG/ML 1 ML SYRINGE IV PRN (10:24)
[2016-10-07] MEDS ORDERED: Buffered Lidocaine 0.9% SYRIN* 5 ML/SYR SYRINGE INTRADERM ONE (10:24)
[2016-10-07] MEDS ORDERED: Bupivacaine 0.5% W/EPI SDV* 10 ML VIAL INJ ONE (11:27)
[2016-10-07] MEDS ORDERED: ceFOXitin 2 GM IVPREMIX* 2 GM/50 ML BAG ONE (11:52)
[2016-10-07] MEDS ORDERED: PROCHLORPERAZINE INJ 5 MG/ML 2 ML VIAL ONE ×2 (12:31→13:33)
[2016-10-07] MEDS ORDERED: Ondansetron INJ* 2 MG/ML VIAL ONE (12:31)
[2016-10-07] MEDS ORDERED: Dexamethasone IV* 4 MG/ML 1 ML (4 MG) ONE (12:31)
[2016-10-07] MEDS ORDERED: Lidocaine 2% PF * 5 ML VIAL ONE (12:31)
[2016-10-07] MEDS ORDERED: Ketorolac INJ* 30 MG/ML 1 ML VIAL ONE (12:31)
[2016-10-07] MEDS ORDERED: Neostigmine Methylsulfate* 2 MG/2 ML SYRINGE ONE (12:31)
[2016-10-07] MEDS ORDERED: Propofol* 10 MG/ML 20 ML BTL IV PUSH ONE (12:31)
[2016-10-07] MEDS ORDERED: Glycopyrrolate IV* 0.2 MG/ML 1 ML VIAL ONE (12:31)
[2016-10-07] MEDS ORDERED: Morphine INJ* 10 MG/ML 1 ML SYRINGE ONE (12:33)
[2016-10-07] MEDS ORDERED: Scopolamine 1.5 mg* PATCH ONE (13:33)
--- NOTE | 2016-10-07 13:33 | SURGPN ---
Brief Operative Note - Surgery Procedures: PREOP/POSTOP DX: SX GALLSTONES PROC: LAP JULIENNE SURG: MECENAS ASSIST: NONE ANES: GETA; FELLOWS EBL: MIN IVF: LR SPEC: GB DRAIN: NONE COMPL: NONE COND: STABLE, EXTUBATED TO RR.
[2016-10-07] MEDS ORDERED: Ibuprofen TAB* 600 MG PO PRN (13:34)
[2016-10-07] MEDS ORDERED: HYDROcodone/ACETAMIN 5-325 MG* 1 TAB PO PRN ×2 (13:34)
[2016-10-07] MEDS: fentaNYL* 50 MCG/ML 2 ML VIAL (100 MCG VIAL) IV PRN ×2 (13:54→14:25)
[2016-10-07] MEDS ORDERED: oxyCODONE/Acetamin 5/325 MG* TAB ONE (14:52)
[2016-10-07] MEDS: oxyCODONE/Acetamin 5/325 MG* TAB PO PRN ×2 (14:53→14:54)
[2016-10-07 16:09] VITALS: BP 115/71
--- NOTE | 2016-10-08 05:55 | OP ---
CC: [place] * DATE OF OPERATION: 10/07/16 - ROOM #339 DATE OF : 89 SURGEON: Mynor Danielle MD CIRCUIT MANAGER: None. ANESTHESIOLOGIST: Christopher Magallon MD ANESTHESIA: General endotracheal. PRE-OP DIAGNOSIS: Symptomatic cholelithiasis. POST-OP DIAGNOSIS: Symptomatic cholelithiasis. OPERATIVE PROCEDURE: Laparoscopic cholecystectomy. ESTIMATED BLOOD LOSS: Minimal. IV FLUIDS: Crystalloids. SPECIMENS: Gallbladder. DRAINS: None. COMPLICATIONS: None. COUNTS: Instrument, needle, and sponge counts were correct. DESCRIPTION OF PROCEDURE: The patient was brought to the operating room and placed on the table supine. Sequential compression devices were placed on both lower extremities and general anesthesia was administered. She was prepped and draped in the usual sterile fashion and time-out was performed. Local anesthetic was infiltrated into the skin and soft tissue prior to making each incision. A transumbilical vertical incision was created using an open technique. The peritoneal cavity was accessed. A 5-mm trocar was placed and carbon dioxide was insufflated to a pressure of 15 mmHg. Under direct visualization, two 5-mm trocars were placed in the right upper quadrant and an 11-mm trocar was placed in the subxiphoid position. Inspection of the gallbladder revealed that it was not acutely inflamed. There were some chronic inflammatory changes associated with adhesions of lesser omentum to the gallbladder neck. The gallbladder fundus was grasped and retracted superiorly and the infundibulum was retracted laterally and inferiorly and then the peritoneum investing the gallbladder was incised and peeled away using combination of sharp dissection and cautery. The cystic duct and cystic artery were each bluntly dissected out making sure that adequate lateral dissection was performed along the gallbladder wall so that a critical view could be obtained. Subsequently, the cystic artery was clipped and divided and the cystic duct was doubly clipped and divided. The gall-bladder was then freed from attachments to the liver using the hook cautery and staying in an avascular plane. Once the gallbladder was freed, it was placed into an endoscopic retrieval bag and retrieved through the subxiphoid port site. The inspection revealed the hemostasis to be excellent and there were no complications noted. The patient tolerated the procedure well, was extubated, and transferred to the recovery room in a stable condition. [id number]/[facility] #: [id number] [facility] HOSPITALCharli
[2016-10-10] MEDS ORDERED: Scopolomine PATCH Remove* 1 NOTE MISC PATCH OFF ONE (10:28)
== END 2016-10-07 16:29 | disposition home or self-care (01) ==
LOC: ED 14:43 → SSU 20:45
PROVIDERS: ADMIT Surgery; ATTEND Surgery
DX: K80.10 Calculus of gallbladder with chronic cholecystitis without obstruction (principal); R10.11 Right upper quadrant pain; R07.9 Chest pain, unspecified
CPT/HCPCS: 36415; 76705; 80048; 80053; 80076; 83605; 83690; 84484; 84702; 85025; 86141; 88304; 93005; 94760; 96374; 96375; 99284; A9270-GY; G0378; J0694; J0780; J1100; J1885; J2250; J2270; J2405; J2704; J3010

== ENCOUNTER 2016-10-21 19:25 | Emergency (ER) | payer OTHER ==
[2016-10-21] MEDS ORDERED: NS 0.9% 1000 ML* 1,000 ML IV ONE (21:09)
[2016-10-21] MEDS ORDERED: NS 0.9% 1000 ML*IV.FLUID IV ONE (21:27)
[2016-10-21] MEDS ORDERED: Ondansetron INJ* 2 MG/ML VIAL IV ONE (21:27)
[2016-10-21] MEDS ORDERED: Ketorolac INJ* 30 MG/ML 1 ML VIAL IV ONE (21:27)
[2016-10-21] MEDS ORDERED: diPHENhydraMINE IV* 50 MG/ML 1 ml VIAL (BENADRYL) IV ONE (21:32)
[2016-10-21] MEDS ORDERED: metroNIDAZOLE IV 500 MG/100ML* 500 MG/100 ML BAG IVPB ONE (21:38)
[2016-10-21] MEDS ORDERED: Ciprofloxacin 400MG IVPREMIX(* 400 MG/200 ML BAG ONE (21:38)
[2016-10-21] MEDS ORDERED: Ciprofloxacin 400MG IVPREMIX(* 400 MG/200 ML BAG IVPB ONE (21:38)
[2016-10-21 21:41] LABS: Hematocrit 38 % (35-47); Hemoglobin 13.2 g/dl (12.0-16.0); Mean Corpuscular HGB Conc 35 g/dl (31-36); Mean Corpuscular Hemoglobin 30 pg (27-31); Mean Corpuscular Volume 86 fL (80-97); Mean Platelet Volume 8 um3 (7.4-10.4); Red Blood Count 4.48 10^6/ul (4.0-5.4); Red Cell Distribution Width 14 % (10.5-15); White Blood Count 17.4 10^3/ul (3.5-10.8)
[2016-10-21 21:58] LABS: ALT 26 U/L (7-52); AST 21 U/L (13-39); Albumin 4.7 g/dL (3.2-5.2); Alkaline Phosphatase 135 U/L (34-104); Amylase 47 U/L (29-103); Anion Gap 6 mmol/L (2-11); BUN/Creatinine Ratio 9.5 (8-20); Blood Urea Nitrogen 8 mg/dL (6-24); C Reactive Protein 18.45 mg/L (< 5.00); CO2 Carbon Dioxide 27 mmol/L (22-32); Calcium 9.6 mg/dL (8.6-10.3); Chloride 104 mmol/L (101-111); EGFR African American 108.1 (>60); Globulin 3.1 g/dL (2-4); Glucose 86 mg/dL (70-100); Lipase 18 U/L (11.0-82.0); Potassium 3.9 mmol/L (3.5-5.0); Sodium 137 mmol/L (133-145); Total Protein 7.8 g/dL (6.4-8.9)
--- NOTE | 2016-10-21 22:02 | RAD ---
INDICATION: Pain at the umbilicus in a patient who underwent cholecystectomy October 07, 2016 COMPARISON: None. TECHNIQUE: Single AP portable view of the chest was obtained. FINDINGS: Image quality is compromised due to the relative inferiority of a portable chest x-ray. The heart and mediastinum exhibit normal size and contour. The lungs are grossly clear. There is no evidence of a large pleural effusion. Visualized bones are normal for the patient's age. IMPRESSION: No radiographic evidence for acute cardiopulmonary abnormality on this portable chest x-ray.
[2016-10-21] MEDS ORDERED: Iohexol 300* (CONTRAST) 10 ML SDV IV ONE (22:19)
[2016-10-21 22:22] LABS: Urine Bilirubin Negative (Negative); Urine Glucose Negative (Negative); Urine Nitrite Negative (Negative)
[2016-10-21] MEDS ORDERED: Acetaminophen SUPP* 650 MG SUPP PR ONE (23:19)
[2016-10-22 02:49] LABS: Erythrocyte Sed Rate 29 mm/Hr (0-14)
[2016-10-22] MEDS ORDERED: Sulfamethox/Trimethoprim DS 800/160* TAB PO ONE (03:51)
[2016-10-22 05:05] VITALS: BP 109/68
--- NOTE | 2016-10-22 05:32 | ED ---
Hitesh Mireles Thomas, scribed for Alexa Bennett MD on 10/21/16 at 2129 . Abdominal Pain/Female - HPI Summary HPI Summary: The pt is a 21 y/o F presenting to the ED c/o abd pain that began two days ago s /p cholecystectomy that was performed on 10/07/16. The pain is constant and is located in her umbilicus. The pain also radiates to her back. The pain is described as throbbing and she rates the pain 10/10. The pain has worsened in the last few hours. The pain is aggravated and alleviated by nothing. Pt additionally c/o erythema (on her umbilicus and began two days ago and is enlarging), shakes (onset today in the ED), chills (onset today in the ED), drainage to the incision site (reddish and pus in color that began yesterday), nausea, and urticaria. Pt denies cough, SOB, CP, calf pain, and vomiting. She took Benadryl 25mg PO today at 20:00 for hives that she gets frequently. She saw her surgeon Dr. Danielle yesterday, who evaluated her, although her erythematous area was smaller in size. She also notes that he also pulled something hard out of belly button that was hard and crusty. After her surgery , she was not prescribed an antibiotic. She was seen by a PA at her PCPs office today, and she was prescribed an antibiotic that she is apparently allergic to and she did not get to pharmacy to pick it up, so she has not had any antibiotics since surg. PMHx: GERD, thyroid disease, depression, and anxiety. PSHx: cholecystectomy. SHx: no smoking, occasional alcohol use, no illicit drug use. [facility] 09/26/2016. G=2, P=2, A=0. She is not on control. - History of Current Complaint Chief Complaint: EDGeneral Stated Complaint: POSS ABD INFECTION FOLLOWING SURGERY Time Seen by Provider: 10/21/16 20:29 Hx Obtained From: Patient Hx Last Menstrual Period: 09/26/16 ?: No Onset/Duration: Gradual Onset, Lasting Days - 2, Still Present, Worse Since - a few hours ago Timing: Constant Severity Initially: Moderate Severity Currently: Severe Pain Intensity: 10 Pain Scale Used: 0-10 Numeric Location: Umbilical Radiates: Yes Radiates to: Back Character: Other: - Throbbing Aggravating Factor(s): Nothing Alleviating Factor(s): Nothing Associated Signs and Symptoms: Positive: Nausea, Other: - POS: erythema, shakes , chills, drainage to the incision site, nausea, urticaria; NEG: SOB, calf pain. Negative: Cough, Chest Pain, Vomiting Allergies/Adverse Reactions: Allergies Allergy/AdvReac Type Severity Reaction Status Date / Time Penicillins Allergy Severe Hives Verified 10/21/16 19:50 Azithromycin [From Zithromax] Allergy Intermediate Hives Verified 10/21/16 19:50 Amoxicillin [From Augmentin] Allergy Hives Verified 10/21/16 19:50 Cefaclor [From Ceclor] Allergy Hives Verified 10/21/16 19:50 Clavulanic Acid Allergy Hives Verified 10/21/16 19:50 [From Augmentin] Enalapril [From Vasotec] Allergy Unknown Verified 10/21/16 19:50 Reaction Details PMH/Surg Hx/FS Hx/Imm Hx Previously Healthy: No Endocrine/Hematology History: Reports: Hx Thyroid Disease Denies: Hx Anticoagulant Therapy, Hx Diabetes Cardiovascular History: Denies: Hx Congestive Heart Failure, Hx Deep Vein Thrombosis, Hx Hypertension , Hx Myocardial Infarction, Hx Pacemaker/ICD Respiratory History: Reports: Hx Seasonal Allergies Denies: Hx Asthma, Hx Chronic Obstructive Pulmonary Disease (COPD), Hx Lung Cancer GI History: Reports: Hx Gall Bladder Disease, Hx Gastroesophageal Reflux Disease Denies: Hx Gastrointestinal Bleed, Hx Ulcer, Hx Urosepsis History: Denies: Hx Kidney Stones, Hx Renal Disease Sensory History: Denies: Hx Contacts or Glasses, Hx Hearing Aid Opthamlomology History: Denies: Hx Contacts or Glasses Neurological History: Denies: Hx Dementia, Hx Migraine, Hx Seizures, Hx Transient Ischemic Attacks (TIA) Psychiatric History: Reports: Hx Anxiety, Hx Depression Denies: Hx Schizophrenia, Hx Bipolar Disorder - Surgical History Surgery Procedure, Year, and Place: tubes in ears Infectious Disease History: Denies: Hx Clostridium Difficile, Hx Hepatitis, Hx Human Immunodeficiency Virus (HIV), Hx of Known/Suspected MRSA, Hx Shingles, Hx Tuberculosis, Hx Known/ Suspected VRE, Hx Known/Suspected VRSA, History Other Infectious Disease, Traveled Outside the [place] in Last 30 Days - Family History Known Family History: Positive: Cardiac Disease, Diabetes - Social History Alcohol Use: Occasionally Hx Substance Use: No Substance Use Type: Reports: None Hx Tobacco Use: No Smoking Status (MU): Never Smoked Tobacco Review of Systems Positive: Chills - onset today in the ED, Other - POS: shakes (onset today in the ED) Negative: Chest Pain Negative: Shortness Of Breath, Cough Positive: Abdominal Pain - umbilical, onset 2 days ago, s/p cholecystectomy, Nausea. Negative: Vomiting Negative: Other - NEG: calf pain Positive: Other - POS: erythema (onset two days ago and progressively worse), drainage to the incision site (reddish and pus in color), urticaria Psychological: Normal All Other Systems Reviewed And Are Negative: Yes Physical Exam Triage Information Reviewed: Yes Vital Signs On Initial Exam: Initial Vitals Temp Pulse Resp BP Pulse Ox 98.8 F 103 16 136/95 99 10/21/16 19:44 10/21/16 19:44 10/21/16 19:44 10/21/16 19:44 10/21/16 19:44 Vital Signs Reviewed: Yes Appearance: Positive: Well-Appearing, Well-Nourished, Pain Distress Skin: Positive: Warm, Skin Color Reflects Adequate Perfusion, Weeping Skin/ Lesions - umbilicus with drainage, cultured, Other - There is an erythematous region to her periumbilicus 12cm diam, outlined with skin pen; no urticaria noted Head/Face: Positive: Normal Head/Face Inspection Eyes: Positive: Conjunctiva Clear ENT: Positive: Normal ENT inspection Neck: Positive: Supple Respiratory/Lung Sounds: Positive: Clear to Auscultation, Breath Sounds Present , Other - No respiratory distress Cardiovascular: Positive: RRR, Pulses are Symmetrical in both Upper and Lower Extremities, Other - Brisk cap refill. Negative: Murmur Abdomen Description: Positive: Soft, Other: - diffuse, mild tenderness without guarding or rebound; skin exam as above Bowel Sounds: Positive: Present Musculoskeletal: Positive: Strength/ROM Intact Neurological: Positive: Alert, Oriented to Person Place, Time, Facial Symmetry, Speech Normal, Other - Muscle tone normal Psychiatric: Positive: Normal - Cecilia Coma Scale Coma Scale Total: 15 Diagnostics - Vital Signs Vital Signs Temp Pulse Resp BP Pulse Ox 10/21/16 19:50 98.8 F 103 16 136/95 99 10/21/16 19:44 98.8 F 103 16 136/95 99 - Laboratory Lab Results: Lab Results 10/21/16 10/21/16 10/21/16 Range/Units 21:30 21:30 21:30 WBC 17.4 H (3.5-10.8) 10^3/ul RBC 4.48 (4.0-5.4) 10^6/ul Hgb 13.2 (12.0-16.0) g/dl Hct 38 (35-47) % MCV 86 (80-97) fL MCH 30 (27-31) pg MCHC 35 (31-36) g/dl RDW 14 (10.5-15) % Plt Count 307 (150-450) 10^3/ul MPV 8 (7.4-10.4) um3 Neut % (Auto) 76.7 (38-83) % Lymph % (Auto) 15.1 L (25-47) % [place] % (Auto) 6.2 (1-9) % Eos % (Auto) 1.4 (0-6) % Baso % (Auto) 0.6 (0-2) % Absolute Neuts (auto) 13.3 H (1.5-7.7) 10^3/ul Absolute Lymphs (auto) 2.6 (1.0-4.8) 10^3/ul Absolute Monos (auto) 1.1 H (0-0.8) 10^3/ul Absolute Eos (auto) 0.2 (0-0.6) 10^3/ul Absolute Basos (auto) 0.1 (0-0.2) 10^3/ul Absolute Nucleated RBC 0 10^3/ul Nucleated RBC % 0 ESR 29 H (0-14) mm/Hr INR (Anticoag Therapy) (0.89-1.11) APTT (26.0-36.3) seconds Sodium 137 (133-145) mmol/L Potassium 3.9 (3.5-5.0) mmol/L Chloride 104 (101-111) mmol/L Carbon Dioxide 27 (22-32) mmol/L Anion Gap 6 (2-11) mmol/L BUN 8 (6-24) mg/dL Creatinine 0.84 (0.51-0.95) mg/dL Est GFR ( Amer) 108.1 (>60) Est GFR (Non-Af Amer) 84.0 (>60) BUN/Creatinine Ratio 9.5 (8-20) Glucose 86 (70-100) mg/dL Lactic Acid 1.5 (0.5-2.0) mmol/L Calcium 9.6 (8.6-10.3) mg/dL Total Bilirubin 0.50 (0.2-1.0) mg/dL AST 21 (13-39) U/L ALT 26 (7-52) U/L Alkaline Phosphatase 135 H (34-104) U/L Troponin I 0.00 (<0.04) ng/mL C-Reactive Protein 18.45 H (< 5.00) mg/L Total Protein 7.8 (6.4-8.9) g/dL Albumin 4.7 (3.2-5.2) g/dL Globulin 3.1 (2-4) g/dL Albumin/Globulin Ratio 1.5 (1-3) Amylase 47 (29-103) U/L Lipase 18 (11.0-82.0) U/L Beta HCG, Quant < 0.60 mIU/mL Urine Color Urine Appearance Urine pH (5-9) Ur Specific [place] (1.010-1.030) Urine Protein (Negative) Urine Ketones (Negative) Urine Blood (Negative) Urine Nitrate (Negative) Urine Bilirubin (Negative) Urine Urobilinogen (Negative) Ur Leukocyte Esterase (Negative) Urine Glucose (Negative) 10/21/16 10/21/16 10/22/16 Range/Units 21:30 22:00 02:40 WBC (3.5-10.8) 10^3/ul RBC (4.0-5.4) 10^6/ul Hgb (12.0-16.0) g/dl Hct (35-47) % MCV (80-97) fL MCH (27-31) pg MCHC (31-36) g/dl RDW (10.5-15) % Plt Count (150-450) 10^3/ul MPV (7.4-10.4) um3 Neut % (Auto) (38-83) % Lymph % (Auto) (25-47) % [place] % (Auto) (1-9) % Eos % (Auto) (0-6) % Baso % (Auto) (0-2) % Absolute Neuts (auto) (1.5-7.7) 10^3/ul Absolute Lymphs (auto) (1.0-4.8) 10^3/ul Absolute Monos (auto) (0-0.8) 10^3/ul Absolute Eos (auto) (0-0.6) 10^3/ul Absolute Basos (auto) (0-0.2) 10^3/ul Absolute Nucleated RBC 10^3/ul Nucleated RBC % ESR (0-14) mm/Hr INR (Anticoag Therapy) 0.94 (0.89-1.11) APTT 30.6 (26.0-36.3) seconds Sodium (133-145) mmol/L Potassium (3.5-5.0) mmol/L Chloride (101-111) mmol/L Carbon Dioxide (22-32) mmol/L Anion Gap (2-11) mmol/L BUN (6-24) mg/dL Creatinine (0.51-0.95) mg/dL Est GFR ( Amer) (>60) Est GFR (Non-Af Amer) (>60) BUN/Creatinine Ratio (8-20) Glucose (70-100) mg/dL Lactic Acid 0.9 (0.5-2.0) mmol/L Calcium (8.6-10.3) mg/dL Total Bilirubin (0.2-1.0) mg/dL AST (13-39) U/L ALT (7-52) U/L Alkaline Phosphatase (34-104) U/L Troponin I (<0.04) ng/mL C-Reactive Protein (< 5.00) mg/L Total Protein (6.4-8.9) g/dL Albumin (3.2-5.2) g/dL Globulin (2-4) g/dL Albumin/Globulin Ratio (1-3) Amylase (29-103) U/L Lipase (11.0-82.0) U/L Beta HCG, Quant mIU/mL Urine Color Straw Urine Appearance Clear Urine pH 8.0 (5-9) Ur Specific [place] 1.006 L (1.010-1.030) Urine Protein Negative (Negative) Urine Ketones Negative (Negative) Urine Blood Negative (Negative) Urine Nitrate Negative (Negative) Urine Bilirubin Negative (Negative) Urine Urobilinogen Negative (Negative) Ur Leukocyte Esterase Negative (Negative) Urine Glucose Negative (Negative) Result Diagrams: 10/21/16 21:30 10/21/16 21:30 Lab Statement: Any lab studies that have been ordered have been reviewed, and results considered in the medical decision making process. - Radiology CXR Xray Interpretation: No Acute Changes - no radiographic evidence for acute cardiopulmonary abnormality on this portable CXR. Radiology Interpretation Completed By: Radiologist - CT CT Abd/Pel CT Interpretation: No Acute Changes - Umbilical subcutaneous edema may represent cellulitis without discrete abscess or involvement of the subjacent peritoneum CT Interpretation Completed By: Radiologist Abdominal Pain Fem Course/Dx - Course Course Of Treatment: The pt is a 21 y/o F presenting to the ED c/o abd pain that began two days ago s/p cholecystectomy that was performed on 10/07/16. The pain is constant and is located in her umbilicus. The pain also radiates to her back. The pain is described as throbbing and she rates the pain 10/10. The pain has worsened in the last few hours. The pain is aggravated and alleviated by nothing. Pt additionally c/o erythema (on her umbilicus and began two days ago) , shakes (onset today in the ED), chills (onset today in the ED), drainage to the incision site (reddish and pus in color), nausea, and urticaria. Pt denies cough, SOB, CP, calf pain, and vomiting. She took Benadryl 25mg PO today at 20: 00. She saw her surgeon Dr. Danielle yesterday, who evaluated her, although her erythematous area was smaller in size. She also notes that he also pulled something hard out of belly button that was hard and crusty. After her surgery , she was not prescribed an antibiotic. She was seen by a PA at her PCPs office today, and she was prescribed an antibiotic that she is apparently allergic to. PMHx: GERD, thyroid disease, depression, and anxiety. PSHx: cholecystectomy. SHx: no smoking, occasional alcohol use, no illicit drug use. [facility] 09/26/2016. G=2, P=2, A=0. She is not on control. CXR reveals no radiographic evidence for acute cardiopulmonary abnormality on this portable CXR. CT Abd/Pel reveals umbilical subcutaneous edema may represent cellulitis without discrete abscess or involvement of the subjacent peritoneum. Bloodwork shows WBC 17.4, ESR 29, CRiP 18.5, and AlkPhos 135. UA shows urine specific gravity 1.006. In the ED course the patient was given Ciprofloxacin IV, Metronidazole IV, IV fluids, Toradol, Zofran, Benadryl, Acetaminophen and Bactrim. Patients medication reviewed this visit. Blood pressure noted. Patient is diagnosed with MRSA surgical site and abdominal wall cellulitis.( First dose of Bactrim given after IV cipro and flagyl, once MRSA results reported by lab). The pt is also diagnosed with elevated blood pressure without a diagnosis of hypertension. She was prescribed Flagyl and Bactrim. Patient will be discharged with follow up from Dr. Danielle. Pt is agreeable with this plan. Note: case was discussed with Dr. Danielle prior to MRSA results. He will see pt in office today and pt will advise him of MRSA dx and RX in ED. 14:28 10/22/16: Dr. Danielle' office called by me, pt is present in the office. Simulation Educator states nurse is aware of MRSA. Message left by me to be sure to inform Dr. Danielle of MRSA. - Diagnoses Differential Diagnosis: Positive: Other - wound infection, cellulitis, abd abscess Provider Diagnoses: Elevated blood pressure reading without diagnosis of hypertension, MRSA surgical site, Abdominal wall cellulitis - Provider Notifications Discussed Care Of Patient With: Mynor Danielle Time Discussed With Above Provider: 02:14 Instructed by Provider To: Other - He recommends pt may be DC's since she does not have an abscess and has not yet had oral antibiotics. He recommends continued oral abx and close f/u in the office today 10/22/16 or 10/23/16 at the latest. Discharge - Discharge Plan Condition: Stable Disposition: HOME Prescriptions: Metronidazole [Flagyl 500 MG TAB] 500 mg PO TID #30 tab Sulfamethox/Trimethoprim DS* [Bactrim DS 800/160 TAB*] 1 tab PO BID #20 tab Patient Education Materials: MRSA (Methicillin-Resistant Staphylococcus Aureus ) (ED), Cellulitis (ED), Surgical Site Infections (ED) Referrals: Mynor Danielle MD [Medical Doctor] - 2 Days (Call for an appt to be seen on 10/23/16 definitely ) Jeffery Castillo DO [Primary Care Provider] - Additional Instructions: Your wound is infected with MRSA. Dr. Danielle will see you today if needed, but definitely wants to see you on 10/23/16. Take both antibiotics as directed , Bactrim and Flagyl. Continue to take the benadryl 25-50mg every six hours as needed for your hives. You may take tylenol and ibuprofen for pain and fever. Please be sure to have your blood pressure rechecked within one month as it was high tonight. Return to the ER if you have any new or worsening symptoms. The documentation as recorded by the Hitesh johnson Thomas accurately reflects the service I personally performed and the decisions made by me, Alexa Bennett MD.
--- NOTE | 2016-10-22 07:43 | RAD ---
INDICATION: Status post laparoscopic cholecystectomy October 07, 2016, umbilical drainage and erythema. COMPARISON: There are no prior studies available for comparison. TECHNIQUE: A CT scan of the abdomen and pelvis was performed with intravenous and oral contrast following intravenous injection of 109 ml of Omnipaque 300 nonionic contrast. Contiguous axial sections were obtained from the lung bases through the symphysis pubis. Images were reconstructed in the coronal and sagittal planes. FINDINGS: The lung bases are clear. No pleural effusion is present. The liver is normal in size without significant focal abnormality. The patient is status post cholecystectomy. No intra or extrahepatic ductal distention is seen. The pancreas appears to be within normal limits. The spleen is mildly enlarged without focal abnormality. The kidneys and adrenal glands are normal in size. No hydronephrosis is seen. No significant focal renal abnormality is seen. The aorta is normal in caliber and demonstrates homogeneous contrast opacification. No significant enlarged retroperitoneal lymph nodes are seen. The stomach, small and large bowel appear nondistended. The appendix is within normal limits. There is mild descending and sigmoid diverticulosis. There is no evidence for diverticulitis or colitis. There is soft tissue swelling present in the subcutaneous tissues in the periumbilical region with surrounding interstitial stranding. No focal fluid collection or abscess is seen. The uterus is retroverted and normal in size. There is a small amount of surrounding free intraperitoneal fluid. Adnexal structures appear within normal limits. No free intraperitoneal air is seen. No significant focal osseous abnormality is seen. IMPRESSION: THERE IS SOFT TISSUE SWELLING PRESENT IN THE SUBCUTANEOUS TISSUES IN THE PERIUMBILICAL REGION SUGGESTIVE OF CELLULITIS. NO ABSCESS IS SEEN.
--- NOTE | 2016-10-25 09:08 | PN ---
Progress Note - Progress Note Date of Service: 10/21/16 Note: MRSA and s. aureus positive wound culture. given bactrim and flagyl at d/c. had follow up with surgery. no further changes required at this time.
== END 2016-10-22 05:05 | disposition home or self-care (01) ==
LOC: ED 19:25
DX: R03.0 Elevated blood-pressure reading, without diagnosis of hypertension (principal); L03.311 Cellulitis of abdominal wall; A49.02 Methicillin resistant Staphylococcus aureus infection, unspecified site
CPT/HCPCS: 36415; 71010; 74177; 80053; 81003; 82150; 83605; 83690; 84484; 84702; 85025; 85610; 85652; 85730; 86140; 87040; 87070; 87077; 87186; 87205; 87640; 87641; 96374; 99284; A9270-GY; J0744; J1200; J1885; J2405; Q9967

== ENCOUNTER 2016-10-22 21:35 | Inpatient (IN) | payer OTHER ==
[2016-10-22] MEDS ORDERED: HYDROmorphone* 1 MG/ML 1 ML SYR IV SLOW PU PRN (21:44)
[2016-10-22] MEDS ORDERED: Acetaminophen TAB* 325 MG PO PRN (21:44)
[2016-10-22] MEDS ORDERED: Ondansetron INJ* 2 MG/ML VIAL IV PRN (21:48)
[2016-10-22] MEDS ORDERED: Zolpidem TAB* 5 MG PO PRN (22:04)
[2016-10-22] MEDS: NS 0.9% 1000 ML* 1,000 ML IV SCH (22:51)
[2016-10-22] MEDS ORDERED: Vancomycin(*) 1,500 MG in NS 0.9% 250 ML* 250 ML IVPB ONE (23:00)
[2016-10-22] MEDS: Ketorolac INJ* 30 MG/ML 1 ML VIAL IV PUSH PRN (23:49)
[2016-10-23] MEDS ORDERED: Vancomycin per Pharmacy* NOTE FOLLOW UP PRN (00:57)
[2016-10-23 01:39] LABS: EGFR African American 123.2 (>60); EGFR Non-African American 95.8 (>60)
[2016-10-23] MEDS ORDERED: LORazepam INJ* 2 MG/ML 1 ML VIAL ONE (01:52)
[2016-10-23] MEDS ORDERED: diPHENhydraMINE PO* 25 MG ONE (01:53)
[2016-10-23] MEDS: oxyCODONE/Acetamin 5/325 MG* TAB PO PRN ×3 (04:10→21:23)
[2016-10-23] MEDS: Ketorolac INJ* 30 MG/ML 1 ML VIAL IV PUSH PRN ×2 (06:16→17:03)
[2016-10-23] MEDS: NS 0.9% 1000 ML* 1,000 ML IV SCH ×2 (06:21→16:23)
[2016-10-23 06:50] LABS: Hematocrit 33 % (35-47); Hemoglobin 11.1 g/dl (12.0-16.0); Mean Corpuscular HGB Conc 34 g/dl (31-36); Mean Corpuscular Hemoglobin 29 pg (27-31); Mean Corpuscular Volume 86 fL (80-97); Mean Platelet Volume 8 um3 (7.4-10.4); Red Blood Count 3.81 10^6/ul (4.0-5.4); Red Cell Distribution Width 14 % (10.5-15); White Blood Count 12.2 10^3/ul (3.5-10.8)
[2016-10-23 07:05] LABS: Albumin 3.5 g/dL (3.2-5.2); BUN/Creatinine Ratio 6.9 (8-20); Calcium 8.5 mg/dL (8.6-10.3); EGFR African American 129.1 (>60); EGFR Non-African American 100.4 (>60); Globulin 2.5 g/dL (2-4); Potassium 3.8 mmol/L (3.5-5.0); Total Bilirubin 0.7 mg/dL (0.2-1.0)
[2016-10-23] MEDS: Vancomycin(*) 1,000 MG in NS 0.9% 250 ML* 250 ML IVPB SCH ×2 (09:02→16:23)
[2016-10-23] MEDS: diPHENhydraMINE PO* 25 MG PO PRN ×2 (09:03→16:23)
--- NOTE | 2016-10-23 09:44 | PN ---
Progress Note - Progress Note Date of Service: 10/23/16 Note: Admission H&P dictated. Impression/plan: Umbilical cellulitis/abscess Cont. IV Vancomycin I&D of umbilical abscess was performed at bedside. Approx. 20cc of purulent discharge was removed and wound was packed with 1/4 inch plain packing gauze. Patient tolerated procedure well.
--- NOTE | 2016-10-23 11:18 | HP ---
AMENDED REPORT NOW INCLUDES COSIGNER DESIGNATION - ESIGNED BEFORE ADJUSTMENT CC: Jeffery Castillo, * HISTORY AND PHYSICAL: DATE OF ADMISSION: 10/22/16 PATIENT OF: Mynor Danielle MD * (DICTATED BY MANDY VALERIO) CHIEF COMPLAINT: Umbilical pain, redness, and swelling. HISTORY OF PRESENT ILLNESS: Belinda is a pleasant 21-year-old female, who is well- known to us from prior gallbladder surgery back on 10/07/16. Back then patient was known to us from prior history of cholelithiasis and she was initially scheduled for an elective cholecystectomy with Dr. Danielle later in September; however, she developed severe epigastric pain with chest discomfort prior to her admission, back on 10/06/16, for which she presented to the emergency room for further evaluation. She had several episodes of similar biliary colic in the past and an ultrasound of her gallbladder showed multiple gallstones, but no gallbladder wall thickening. Given her ongoing symptoms and the severity of the pain, patient was taken to the operating room the next day, on 10/07/16, where she had a laparoscopic cholecystectomy that was eventually unremarkable. After surgery, patient recovered well and she was sent home later that afternoon. She was seen in the office twice for postop evaluation and she continued to have some umbilical incision pain and tenderness, on and off; however, she denied any redness, fever, or discharge from the incision. She was seen at her primary care physician yesterday and was found to have increased redness and swelling around the umbilical incision for which she was started on Bactrim empirically for cellulitis. Apparently her pain and swelling has gotten progressively worse, for which patient presented to the emergency room last night for further evaluation. She was actually scheduled for a followup at the surgical associate office earlier today to evaluate umbilical incision. However, patient was evaluated in the emergency room and was admitted for cellulitis. She was found to have elevated white count and leukocytosis. However, she denied any fever or discharge from the umbilical incision. This morning, she feels slightly better with pain medication; however , she still complained of increased swelling and redness around the umbilicus. PAST MEDICAL HISTORY: Significant for hypothyroidism, otherwise she denies any history of heart, lung, liver or kidney disease. PAST SURGICAL HISTORY: Significant for tubes in her ear as a child as well as recent laparoscopic cholecystectomy on 10/07/16. CURRENT MEDICATIONS: Her medication at home include: 1. Synthroid 75 mcg once daily. 2. Bactrim DS 1 tablet p.o. b.i.d. 3. Hydrocodone/acetaminophen 5/325 one to two tablets q.6 hours as needed for pain. ALLERGIES: Multiple, including PENICILLIN, AZITHROMYCIN, ENALAPRIL, and CEFACLOR. FAMILY HISTORY: Noncontributory. SOCIAL HISTORY: She is a nonsmoker, who drinks alcohol occasionally, and caffeine intake is minimal. She is not presently employed and she has two young children, age 2 and 5. REVIEW OF SYSTEMS: See HPI, otherwise negative. She denies any headache, dizziness, blurred vision or double vision. No sore throat, cough, shortness of breath. No chest pain, palpitation, wheezing or dyspnea. No back pain, flank pain, hematuria, dysuria or urinary frequency. She admits to periumbilical pain and swelling as well as increased redness, but denies any bleeding or discharge from prior laparoscopic incision. She denies any masses or hernias. No fever, chills, night sweats or recent weight loss. PHYSICAL EXAMINATION VITAL SIGNS: Most recent set of vitals revealed temperature of 98.1, blood pressure of 110/62, pulse of 87, respirations of 16, and O2 sat of 100% on room air. HEENT: Sclerae are anicteric. PERRLA. EOMs intact. Oropharynx is pink and moist, with no exudate. NECK: Supple. Trachea midline. No cervical adenopathy or thyromegaly. LUNGS: Clear to auscultation bilaterally. HEART: Regular rate and rhythm. Normal S1 and S2, without rubs, murmurs or gallops. BACK: Normal curvature. No CVA tenderness. BREAST EXAM: Deferred at this time. ABDOMEN: Soft and nondistended. There is moderate swelling noted surrounding the umbilical incision, with some fluctuance noted, that was quite tender on palpation. There is moderate surrounding induration as well as erythema. There is some guarding on exam, but no rigidity. No evidence of hernias or masses. Umbilical incision itself appears to be intact, with no evidence of bleeding or discharge at this time. Other incisions are well healed. EXTREMITIES: Without cyanosis, clubbing or edema. NEUROLOGIC: Grossly intact. RECTAL EXAM: Deferred at this time. DIAGNOSTIC STUDIES/LAB DATA: Patient had CBC during her ER admission that revealed white count of 12,000, hemoglobin of 11.1, and hematocrit 33, and bands were 0. IMPRESSION: A 21-year-old female who is over 2 weeks status post laparoscopic cholecystectomy, who presented to the emergency room with increasing periumbilical pain, swelling, and redness likely due to cellulitis. PLAN: Patient was directly admitted from the emergency room under surgical services. Her initial cultures at her primary care physician revealed evidence of MRSA for which she was started on Bactrim as an outpatient and we will start her on vancomycin intravenously during her admission. She appears to be clinically stable, with no evidence of fever or septicemia. We will discuss with her the possibility of proceeding with aspiration or possibly I and D of presumed umbilical abscess. PROCEDURE NOTE: After a brief discussion with the patient, she agreed to go forward with aspiration of umbilical abscess, possible incision and drainage. Consent was obtained and time-out was done in the room. Area was anesthetized using approximately 5 cc of 1% plain lidocaine. A small elliptical incision was made using a #15 blade with approximately 20 cc of purulent discharge noted immediately. Cultures were obtained and the area was probed using a Q-tip, measuring in depth approximately 2 cm. The pus was more expressed using manual compression and then using a 0.25-inch plain packing gauze the wound was packed and clean dressing was applied. Patient tolerated the procedure well. At this point, we will continue her IV antibiotics and we will await the cultures of the umbilical abscess. Again, she appears to be clinically stable with no signs of septicemia at this point and we will keep her under close observation. [facility] MANDY WORLEY [id number]/[facility] #: [id number] BORIS
[2016-10-23] MEDS ORDERED: oxyCODONE/Acetamin 5/325 MG* TAB ONE (15:00)
[2016-10-24] MEDS ORDERED: Vancomycin Trough Check NOTE FOLLOW UP ONE
[2016-10-24] MEDS: diPHENhydraMINE PO* 25 MG PO PRN ×4 (00:24→23:29)
[2016-10-24] MEDS: NS 0.9% 1000 ML* 1,000 ML IV SCH ×3 (00:40→19:20)
[2016-10-24] MEDS: Vancomycin(*) 1,000 MG in NS 0.9% 250 ML* 250 ML IVPB SCH (00:42)
[2016-10-24] MEDS: oxyCODONE/Acetamin 5/325 MG* TAB PO PRN ×3 (06:25→23:28)
[2016-10-24] MEDS ORDERED: Vancomycin(*) 1,250 MG in NS 0.9% 250 ML* 250 ML IVPB SCH (06:57)
[2016-10-24] MEDS: Vancomycin(*) 1,250 MG in NS 0.9% 250 ML* 250 ML IVPB SCH ×3 (08:43→23:29)
--- NOTE | 2016-10-24 10:28 | PN ---
Progress Note - Progress Note Date of Service: 10/24/16 SOAP: Subjective: [Pt seen and examined at bedside. Appears to be feeling much better and at ease. Appetite is good. Has not passed a BM since before admission. Pain is tolerable when laying in bed. Has been ambulating regularly, at which time pain increases slightly. Has been trying to use IS as much as possible. Denies fever, chills, sweats, headache. ] Objective: [ Vital Signs - 8 hr 10/24/16 10/24/16 10/24/16 03:59 06:25 08:00 Temperature 97.9 F Pulse Rate 60 Respiratory 16 18 16 Rate Blood Pressure 105/69 (mmHg) O2 Sat by Pulse 100 Oximetry 10/24/16 10/24/16 10/24/16 08:10 08:25 08:37 Temperature 97.9 F Pulse Rate 75 Respiratory 16 16 14 Rate Blood Pressure 127/85 (mmHg) O2 Sat by Pulse 99 Oximetry Laboratory Results - last 24 hr 10/24/16 00:08 Vancomycin Trough 9.6 Current Medications Acetaminophen (Tylenol Tab*) 650 mg PO Q6H PRN PRN Reason: FEVER Diphenhydramine HCl (Benadryl Po*) 25 mg PO Q6H PRN PRN Reason: ITCHING Last Admin: 10/24/16 08:10 Dose: 25 mg Hydromorphone HCl (Dilaudid Iv*) 1 mg IV SLOW PU Q2H PRN PRN Reason: PAIN Sodium Chloride (Ns 0.9% 1000 Ml*) 1,000 mls @ 150 mls/hr IV PER RATE MAAME Last Admin: 10/24/16 00:40 Dose: 150 mls/hr Vancomycin HCl 1,250 mg/ (Sodium Chloride) 250 mls @ 166.667 mls/hr IVPB 0000, 0800,1600 [facility] Last Admin: 10/24/16 08:43 Dose: 166.667 mls/hr Ketorolac Tromethamine (Toradol Inj*) 30 mg IV PUSH Q6H PRN PRN Reason: PAIN Last Admin: 10/23/16 17:03 Dose: 30 mg Lorazepam (Ativan Inj*) 1 mg IV PUSH Q4H PRN PRN Reason: ANXIETY Ondansetron HCl (Zofran Inj*) 4 mg IV Q6H PRN PRN Reason: NAUSEA Oxycodone/Acetaminophen (Percocet 5/325 Tab*) 1 tab PO Q4H PRN PRN Reason: PAIN Last Admin: 10/24/16 06:25 Dose: 1 tab Pharmacy Consult (Vancomycin Per Pharmacy*) 1 note FOLLOW UP . PRN PRN Reason: PER PROTOCOL Pharmacy Profile Note (Vancomycin Trough Check) 1 note FOLLOW UP 0730 ONE Stop: 10/27/16 07:31 Zolpidem Tartrate (Ambien Tab*) 5 mg PO BEDTIME PRN PRN Reason: INSOMNIA Intake & Output 10/22/16 10/23/16 10/24/16 10/25/16 06:59 06:59 06:59 06:59 Intake Total 1334 5988 240 Output Total 550 3525 500 Balance 784 2463 -260 Weight 180 lb 1.6 oz Intake: IV Fluids 867 2197 ns 867 1937 vanco 260 IVPB 267 277 vanco 267 277 Oral 200 3514 240 Output: Urine 550 3525 500 Other: Date of Last Bowel 200 Movement # Bowel Movements 0 0 Laboratory Tests 10/23/16 10/23/16 05:56 05:56 WBC 12.2 H RBC 3.81 L Hgb 11.1 L Hct 33 L Lymph % (Auto) 10.1 L Absolute Neuts (auto) 9.8 H BUN/Creatinine Ratio 6.9 L Microbiology 10/23/16 09:20 Skin and Soft Tissue MRSA/MSSA (PCR - Final Abdomen Mrsa Positive S.aureus Positive Gram Stain - Final Physical Exam General: Pleasant appearing 21 y/o female in NAD. VSS, Afeb, no signs of sepsis. Heart: RRR Respiratory: CTA Abdomen: dry dressings left in tact. soft, mild tenderness over dressings. +BS in all 4 quadrants. Extremities: without edema ] Assessment: [Post I&D of umbilical abscess being treated with IV Vanco] Plan: [Continue to encourage to ambulate and use IS. Wound culture pending. Change dressing and evaluate abscess.]
--- NOTE | 2016-10-24 12:09 | PN ---
Progress Note - Progress Note Date of Service: 10/24/16 Note: Patient was seen and examined Agree with above note Procedure: Patient was pre-medicated with 0.5 mg Dilaudid IV push. Old packing was removed and replaced with fresh 1/4 inch plain packing gauze. Abdomen with improved erythema and induration. No active bleeding or discharge, Patient tolerated procedure well. Plan: Continue IV Abx Ambulate Regular diet Hopefully home later today or tomorrow
[2016-10-25] MEDS: NS 0.9% 1000 ML* 1,000 ML IV SCH (03:22)
[2016-10-25] MEDS: diPHENhydraMINE PO* 25 MG PO PRN ×2 (08:11→15:57)
[2016-10-25] MEDS: Vancomycin(*) 1,250 MG in NS 0.9% 250 ML* 250 ML IVPB SCH ×2 (08:11→15:58)
[2016-10-25] MEDS: oxyCODONE/Acetamin 5/325 MG* TAB PO PRN ×3 (08:16→20:30)
--- NOTE | 2016-10-25 08:53 | PN ---
Progress Note - Progress Note Date of Service: 10/25/16 SOAP: Subjective: She still has pain at umbilicus Tolerating liquids with some nausea She has had several loose BM's in the last 12 hours Objective: Temp Pulse Resp BP Pulse Ox 98.1 F 65 16 113/83 100 10/25/16 07:37 10/25/16 07:37 10/25/16 08:16 10/25/16 07:37 10/25/16 07:37 Intake & Output 10/23/16 10/24/16 10/25/16 10/26/16 06:59 06:59 06:59 06:59 Intake Total 1334 5988 4073 Output Total 550 3525 3800 650 Balance 784 2463 273 -650 Weight 180 lb 1.6 oz Intake: IV Fluids 867 2197 2933 ns 867 1937 2933 vanco 260 IVPB 267 277 850 vanco 267 277 850 Oral 200 3514 290 Output: Urine 550 3525 3800 650 Other: Date of Last Bowel 200 Movement # Bowel Movements 0 0 Estimated Stool Amount Small PEX: Comfortable Lungs are clear Cor is RRR Abdomen is soft and non-distended. Bowel sounds are present. Open abscess site at umbilicus is clean and open with some seropurulent drainage, no odor. Area or erythema marked with ink remains although appears less red and is cool to touch. Nu-Gauze packing was changed and new gauze applied. Cultures noted--MRSA Assessment: Abdominal wall abscess with cellulitis--MRSA Plan: Continue IV vancomycin Wound care-packing changed at the bedside this morning. She is not ready for discharge-increase po as tolerated, decrease IVF.
[2016-10-25] MEDS: LORazepam INJ* 2 MG/ML 1 ML VIAL IV PUSH PRN (21:56)
[2016-10-26] MEDS: Vancomycin(*) 1,250 MG in NS 0.9% 250 ML* 250 ML IVPB SCH ×3 (00:04→17:27)
[2016-10-26] MEDS: diPHENhydraMINE PO* 25 MG PO PRN ×4 (00:07→23:53)
[2016-10-26] MEDS: oxyCODONE/Acetamin 5/325 MG* TAB PO PRN ×4 (07:56→22:02)
--- NOTE | 2016-10-26 10:35 | PN ---
Progress Note - Progress Note Date of Service: 10/26/16 SOAP: Subjective: She continues to feel better but is not ready to go home yet. Pain is improved She is tolerating po and having some loose BM's Objective: Temp Pulse Resp BP Pulse Ox 97.5 F 64 16 112/66 100 10/26/16 04:20 10/26/16 04:20 10/26/16 08:00 10/26/16 04:20 10/26/16 04:20 PEX: Comfortable Lungs are clear Abd is soft and non-distended. Umbilical abscess cavity is clean and granulating in well-minimal serous drainage on packing. Induration and erythema surrounding umbilicus much improved and almost resolved. Assessment: Umbilical abscess/cellulitis s/p lap choly MRSA in cultures Plan: Packing changed Continue IV abx-she is ready for d/c on oral antibiotics and outpatient follow up-she does not feel that she is ready to go home. Plan d/c tomorrow.
[2016-10-26] MEDS: Lactobacillus Acidophilu (GG)* 1 CAP CAP PO SCH ×2 (13:51→22:02)
[2016-10-27] MEDS: LORazepam INJ* 2 MG/ML 1 ML VIAL IV PUSH PRN (00:40)
[2016-10-27] MEDS: Vancomycin(*) 1,250 MG in NS 0.9% 250 ML* 250 ML IVPB SCH (04:03)
[2016-10-27] MEDS ORDERED: Vancomycin(*) 1,500 MG in NS 0.9% 250 ML* 250 ML IVPB SCH (06:00)
[2016-10-27] MEDS: diPHENhydraMINE PO* 25 MG PO PRN (06:06)
[2016-10-27] MEDS: Lactobacillus Acidophilu (GG)* 1 CAP CAP PO SCH (08:17)
[2016-10-27] MEDS: oxyCODONE/Acetamin 5/325 MG* TAB PO PRN (08:48)
[2016-10-27 09:03] VITALS: BP 118/77
--- NOTE | 2016-10-27 11:11 | PN ---
Progress Note - Progress Note Date of Service: 10/27/16 SOAP: Subjective: [POD #21, abscess drained 10/16, packing changed Thursdayand Thursday. Pt seen and examined at bedside, packed changed one last time. Pt still expressing some anxiety but appears to be doing better. Walked in while pt was eating breakfast, noted she does not have much of an appetite. Passing flatus and BMs. Able to ambulate with less pain. States she is ready to go home.] Objective: [ Vital Signs - 8 hr 10/27/16 10/27/16 10/27/16 03:41 06:06 08:00 Temperature 97.7 F Pulse Rate 64 Respiratory 16 16 16 Rate Blood Pressure 105/55 (mmHg) O2 Sat by Pulse 100 Oximetry 10/27/16 10/27/16 10/27/16 08:06 08:14 08:48 Temperature 98.3 F Pulse Rate 79 Respiratory 16 16 16 Rate Blood Pressure 118/77 (mmHg) O2 Sat by Pulse 99 Oximetry Laboratory Tests 10/23/16 10/24/16 05:56 00:08 WBC 12.2 H RBC 3.81 L Hgb 11.1 L Hct 33 L Lymph % (Auto) 10.1 L Absolute Neuts (auto) 9.8 H Vancomycin Trough 9.6 Intake & Output 10/25/16 10/26/16 10/27/16 10/28/16 06:59 06:59 06:59 06:59 Intake Total 4073 3600 2161 Output Total 3800 2550 2000 500 Balance 273 1050 161 -500 Intake: IV Fluids 2933 820 12 NS (0.9%) 820 12 ns 2933 IVPB 850 550 299 ABX - VANCOMYCIN 550 299 vanco 850 Oral 290 2230 1850 Output: Urine 3800 2550 2000 500 Other: Estimated Stool Amount Small Microbiology 10/23/16 09:20 Skin and Soft Tissue MRSA/MSSA (PCR - Final Abdomen Mrsa Positive S.aureus Positive Gram Stain - Final Wound Culture - Final MRSA PEX: General: anxious appearing young lady in NAD, VSS, Tmax 98.3 over last 24hrs. Abd: soft, non-distended abd, mild tenderness around umbilicus. Under the dressing, erythema is well localized around umbilicus (~1.5cm in diameter), significantly contained within the initial blue markings, almost completely resolved. Open abscess cavity was clean without active bleeding or drainage. Old packing was removed, mild seropurulent drainage on packing and dressing, no odor. New fresh 1/4 inch plain packing gauze was inserted into cavity. New dressing applied on top. ] Assessment: [Post I&D umbilical abscess +MRSA, s/p lap choly 10/07.] Plan: [d/c today. Pt agrees to remove packing tomorrow on her own and apply abx ointment with new bandage/dressing. Continue Vanco PO. See discharge instructions. ]
--- NOTE | 2016-10-27 12:52 | PN ---
Progress Note - Progress Note Date of Service: 10/27/16 Note: Surgery Progress: S: Patient seen and examined and packing changed w/ PA student Radha Birmingham. See student note for details. O: afeb; VSS Umbilical wound w/ min serosang drainage; clean; no sig erythema; packing (1/ 4" plain) replaced. A/P: umbilical surgical wound (laparoscopic port site); + MRSA; ok for d/c home. She'll remove pkg tomorrow and thereafter leave open; abx ointment dsg; recheck in office Thursday; cont previous course of Bactrim.
[2016-10-27] MEDS ORDERED: Vancomycin Trough Check NOTE FOLLOW UP ONE (19:30)
[2016-10-27] MEDS ORDERED: Vancomycin(*) 1,250 MG in NS 0.9% 250 ML* 250 ML IVPB SCH (20:00)
--- NOTE | 2016-10-28 00:25 | DS ---
CC: Dr. Ho Vaca, [facility] * DISCHARGE SUMMARY: DATE OF ADMISSION: 10/23/16 DATE OF DISCHARGE: 10/27/16 ATTENDING PHYSICIAN: Dr. Cosby * (DICTATED BY MANDY CROSS) HOSPITAL COURSE: Please refer to admission history and physical for admission details. The patient is now almost 3 weeks status post laparoscopic cholecystectomy with Dr. Danielle. She apparently developed signs and symptoms of infection around the umbilical laparoscopic port site last week. She was admitted for antibiotics. The incision and drainage of the wound was done on and wound has since been packed on a daily basis. Culture did grew out MRSA and she was maintained in the hospital on IV vancomycin. She has had gradual clinical improvement over the past few days and as of the morning of discharge, is afebrile with stable vital signs and pain well controlled with oral medications. Wound on the day of discharge was small, just able to probe to a depth of approximately 1.5 cm. There was no evidence of undrained collection. The previously marked area of erythema has entirely resolved. She tolerated the packing change well. PLAN: Home today. She will finish the course of Bactrim that was perviously prescribed. She will remove the packing herself at home tomorrow, 10/28/16, and thereafter apply an antibiotic ointment dressing once daily. She has a followup appointment in our office on 10/31/16. MANDY CROSS [id number]/[facility] #: [id number] BORIS
== END 2016-10-27 10:15 | disposition home or self-care (01) | DRG 711 ==
LOC: SSU 21:35 → UNDOADMIN 21:35 → SSU 21:42 → OBSVTOIN 10-23 08:50
PROVIDERS: ADMIT Surgery; ATTEND Surgery
PROC: 0J980ZZ Drainage of Abdomen Subcutaneous Tissue and Fascia, Open Approach (ICD-10-PCS; principal; 2016-10-23)
DX: T81.4XXA Infection following a procedure, initial encounter (principal); L02.216 Cutaneous abscess of umbilicus; B95.62 Methicillin resistant Staphylococcus aureus infection as the cause of diseases classified elsewhere; E03.9 Hypothyroidism, unspecified; X58.XXXA Exposure to other specified factors, initial encounter; Z79.899 Other long term (current) drug therapy; Z88.1 Allergy status to other antibiotic agents; Z88.0 Allergy status to penicillin; Z88.8 Allergy status to other drugs, medicaments and biological substances
CPT/HCPCS: 36415; 80053; 80202; 82565; 85025; 87070; 87077; 87205; 87640; 87641; A9270-GY; J1170; J1885; J2060; J3370

== ENCOUNTER 2016-12-26 19:04 | Emergency (ER) | payer OTHER ==
[2016-12-26 19:12] VITALS: BP 141/83
--- NOTE | 2016-12-26 19:16 | UC ---
Abdominal Pain Female HPI - HPI Summary HPI Summary: 21 year old female presents with complains of severe abdominal pain and with bloody evacuation. I will send her to the ER for h/h and CT abdomen to rule out a IBD, colitis etc. . - History of Current Complaint Chief Complaint: UCAbdominalPain Stated Complaint: BLOOD IN STOOL, AND ABDOMINAL PAIN Time Seen by Provider: 12/26/16 19:12 Hx Obtained From: Patient Hx Last Menstrual Period: 10/31/16 Onset/Duration: Sudden Onset Severity Initially: Moderate Severity Currently: Moderate Pain Scale Used: 0-10 Numeric - 8 Allergies/Adverse Reactions: Allergies Allergy/AdvReac Type Severity Reaction Status Date / Time Penicillins Allergy Severe Hives Verified 10/21/16 19:50 Azithromycin [From Zithromax] Allergy Intermediate Hives Verified 10/21/16 19:50 Amoxicillin [From Augmentin] Allergy Hives Verified 10/21/16 19:50 Cefaclor [From Ceclor] Allergy Hives Verified 10/21/16 19:50 Clavulanic Acid Allergy Hives Verified 10/21/16 19:50 [From Augmentin] Enalapril [From Vasotec] Allergy Unknown Verified 10/21/16 19:50 Reaction Details PMH/Surg Hx/FS Hx/Imm Hx Previously Healthy: Yes Other History Of: Negative For: HIV, Hepatitis B, Hepatitis C, Anticoagulant Therapy - Surgical History Surgical History: Yes Surgery Procedure, Year, and Place: tubes in ears. lydia - Family History Known Family History: Positive: Cardiac Disease, Diabetes - Social History Alcohol Use: Occasionally Substance Use Type: None Smoking Status (MU): Never Smoked Tobacco - Immunization History Most Recent Influenza Vaccination: 02/22/14 Most Recent Tetanus Shot: 04/26/14 Most Recent Pneumonia Vaccination: none Review of Systems Constitutional: Negative Skin: Negative Eyes: Negative ENT: Negative Respiratory: Negative Cardiovascular: Negative Gastrointestinal: Abdominal Pain, Other - blood stools Genitourinary: Negative Motor: Negative Neurovascular: Negative Musculoskeletal: Negative Neurological: Negative Psychological: Negative All Other Systems Reviewed And Are Negative: Yes Physical Exam Triage Information Reviewed: Yes Vital Signs: Initial Vital Signs Temp 37.2 C 12/26/16 19:08 Pulse 89 12/26/16 19:08 Resp 18 12/26/16 19:08 BP 141/83 12/26/16 19:08 Pulse Ox 100 12/26/16 19:08 Eye Exam: Normal ENT Exam: Normal Dental Exam: Normal Neck exam: Normal Neck: Positive: 1 Respiratory Exam: Normal Cardiovascular Exam: Normal Abdomen Description: Positive: Guarding, Other: - LLQ PAIN Musculoskeletal Exam: Normal Neurological Exam: Normal Psychological Exam: Normal Skin Exam: Normal Abd Pain Female Course/Dx - Differential Dx/Diagnosis Provider Diagnoses: LLQ ABDOMINAL PAIN. BLOOD STOOLS Discharge - Discharge Plan Condition: Stable Disposition: OTHER Discharge Disposition Comment: PATIENT SUGGESTED TO GO TO THE ER. Patient Education Materials: Rectal Bleeding (ED), Acute Abdominal Pain (ED) Referrals: Jeffery Castillo DO [Primary Care Provider] - Additional Instructions: patient suggested to go to the er for severe abdominal pain and rectal bleeding.
== END 2016-12-26 19:20 ==
LOC: UCEAST 19:04
DX: R10.32 Left lower quadrant pain (principal); K92.1 Melena; Z88.1 Allergy status to other antibiotic agents; Z88.0 Allergy status to penicillin
CPT/HCPCS: 99211; G0463

== ENCOUNTER 2016-12-26 19:43 | Emergency (ER) | payer OTHER ==
[2016-12-26 20:04] VITALS: BP 149/98
== END 2016-12-26 22:38 | disposition left against medical advice (07) ==
LOC: ED 19:43
DX: R10.9 Unspecified abdominal pain (principal); Z53.21 Procedure and treatment not carried out due to patient leaving prior to being seen by health care provider

== ENCOUNTER 2017-01-16 20:28 | Emergency (ER) | payer OTHER ==
[2017-01-16 20:45] VITALS: BP 133/79
--- NOTE | 2017-01-16 21:31 | UC ---
Abdominal Pain Female HPI - HPI Summary HPI Summary: PT C/O ALMOST A WEEK OF DIFFUSE SHARP ABDOMINAL PAIN AND NAUSEA. LOOSE STOOLS FOR PAST 2 DAYS BUT NONE TODAY. NO BLOOD. NO VOMITING. NO FEVER. PT CAN NOT KEEP ANYTHING DOWN. STATES SHE HAS ONLY HAD A FEW SIPS OF FLUID OVER THE PAST 2 DAYS. HAS H/O FREQUENCTY ABDOMINAL PAIN. WAS SENT TO ER FROM HERE 3 WEEKS AGO BUT LWBS. HAS H/O MRSA INFECTION AT [facility] INC[facility] SITE 09/2016. - History of Current Complaint Chief Complaint: UCAbdominalPain Stated Complaint: ABDOMINAL PAIN, NAUSEA Time Seen by Provider: 01/16/17 20:55 Hx Obtained From: Patient Hx Last Menstrual Period: 2weeks Onset/Duration: Gradual Onset, Lasting Days, Still Present Timing: Constant Severity Initially: Moderate Severity Currently: Moderate Pain Intensity: 6 Pain Scale Used: 0-10 Numeric Location: Diffuse Radiates: No Character: Aching, Sharp Aggravating Factor(s): Food Alleviating Factor(s): Nothing Associated Signs and Symptoms: Positive: Decreased Appetite, Nausea, Diarrhea. Negative: Fever, Back Pain, Constipation, Blood in Stool, Urinary Symptoms, Vomiting Allergies/Adverse Reactions: Allergies Allergy/AdvReac Type Severity Reaction Status Date / Time Penicillins Allergy Severe Hives Verified 01/16/17 20:45 Azithromycin [From Zithromax] Allergy Intermediate Hives Verified 01/16/17 20:45 Amoxicillin [From Augmentin] Allergy Hives Verified 01/16/17 20:45 Cefaclor [From Ceclor] Allergy Hives Verified 01/16/17 20:45 Clavulanic Acid Allergy Hives Verified 01/16/17 20:45 [From Augmentin] Enalapril [From Vasotec] Allergy Unknown Verified 01/16/17 20:45 Reaction Details PMH/Surg Hx/FS Hx/Imm Hx Previously Healthy: Yes Other History Of: Negative For: HIV, Hepatitis B, Hepatitis C, Anticoagulant Therapy - Surgical History Surgical History: Yes Surgery Procedure, Year, and Place: tubes in ears. lydia - Family History Known Family History: Positive: Cardiac Disease, Hypertension, Diabetes Family History: MOM - [employer] - Social History Alcohol Use: Occasionally Substance Use Type: None Smoking Status (MU): Never Smoked Tobacco - Immunization History Most Recent Influenza Vaccination: 02/22/14 Most Recent Tetanus Shot: 04/26/14 Most Recent Pneumonia Vaccination: none Review of Systems Constitutional: Negative Respiratory: Negative Cardiovascular: Negative Gastrointestinal: Abdominal Pain, Diarrhea, Nausea Genitourinary: Negative All Other Systems Reviewed And Are Negative: Yes Physical Exam Triage Information Reviewed: Yes Appearance: Well-Appearing, No Pain Distress, Well-Nourished Vital Signs: Initial Vital Signs Temp 98.2 F 01/16/17 20:40 Pulse 83 01/16/17 20:40 BP 133/79 01/16/17 20:40 Pulse Ox 100 01/16/17 20:40 Vital Signs Reviewed: Yes Eyes: Positive: Conjunctiva Clear ENT: Positive: Hearing grossly normal Neck: Positive: Supple Respiratory: Positive: No respiratory distress, No accessory muscle use Cardiovascular: Positive: Pulses Normal Abdomen Description: Positive: Soft, Other: - TTP DIFFUSELY - WORSE IN LOWER ABDOMEN. Negative: CVA Tenderness (R), CVA Tenderness (L), Distended, Guarding Musculoskeletal: Positive: No Edema Neurological: Positive: Alert Psychological: Positive: Age Appropriate Behavior Skin: Negative: rashes Abd Pain Female Course/Dx - Course Course Of Treatment[place] [facility] [place] FURTHER EVALUATION - Differential Dx/Diagnosis Provider Diagnoses: ABDOMINAL PAIN, NOS Discharge - Discharge Plan Condition: Stable Disposition: OTHER Discharge Disposition Comment: [place] [facility] [place] Patient Education Materials: Abdominal Pain (ED) Referrals: Jeffery Castillo DO [Primary Care Provider] - If Needed Additional Instructions: GO DIRECTLY TO [place] [facility] [place] FOR FURTHER EVALUATION.
== END 2017-01-16 21:25 ==
LOC: UCEAST 20:28
DX: Z72.89 Other problems related to lifestyle (principal); R10.84 Generalized abdominal pain
CPT/HCPCS: 99211; G0463

== ENCOUNTER 2017-01-16 21:53 | Emergency (ER) | payer OTHER ==
[2017-01-17 00:10] LABS: Mean Corpuscular Hemoglobin 29 pg (27-31); Mean Corpuscular Volume 85 fL (80-97)
[2017-01-17 00:12] LABS: Hematocrit 39 % (35-47); Hemoglobin 13.2 g/dl (12.0-16.0); Mean Corpuscular HGB Conc 34 g/dl (31-36); Mean Platelet Volume 7 um3 (7.4-10.4); Red Blood Count 4.56 10^6/ul (4.0-5.4); Red Cell Distribution Width 14 % (10.5-15); White Blood Count 8.6 10^3/ul (3.5-10.8)
[2017-01-17 00:15] LABS: Comments Flag Yes
[2017-01-17 00:26] LABS: ALT 27 U/L (7-52); AST 20 U/L (13-39); Albumin 4.4 g/dL (3.2-5.2); Alkaline Phosphatase 103 U/L (34-104); Anion Gap 3 mmol/L (2-11); BUN/Creatinine Ratio 12.7 (8-20); Blood Urea Nitrogen 10 mg/dL (6-24); C Reactive Protein 3.91 mg/L (< 5.00); CO2 Carbon Dioxide 28 mmol/L (22-32); Chloride 105 mmol/L (101-111); EGFR Non-African American 90.2 (>60); Glucose 101 mg/dL (70-100); Lipase 14 U/L (11.0-82.0); Potassium 3.8 mmol/L (3.5-5.0); Sodium 136 mmol/L (133-145); Total Protein 7.4 g/dL (6.4-8.9)
[2017-01-17 00:52] LABS: Urine Bacteria Absent (Absent); Urine Bilirubin Negative (Negative); Urine Glucose Negative (Negative); Urine Nitrite Negative (Negative)
[2017-01-17] MEDS ORDERED: Famotidine TAB* 20 MG PO ONE (03:48)
[2017-01-17] MEDS ORDERED: Al Hydrox/Mg Hydrox/Simet LIQ* 30 ML UDC PO ONE (03:48)
[2017-01-17] MEDS ORDERED: Sucralfate TAB* 1 GM PO ONE (03:49)
--- NOTE | 2017-01-17 04:16 | ED ---
Christopher Mireles Alfonso, scribed for Rg Urban MD on 01/17/17 at 0332 . Abdominal Pain/Female - HPI Summary HPI Summary: This patient is a 21 year old F presenting to [facility] accompanied by male with a chief complaint of LUQ abdominal pain since yesterday, worse since a few hours ago. The pain radiates to her left-sided back. The patient rates the pain 8/10 in severity. Symptoms aggravated by eating. Symptoms alleviated by nothing. Patient reports diarrhea (2 days ago and yesterday). Patient denies N/V, urinary symptoms, vaginal bleeding, CP, and SOB. LMP recently finished. - History of Current Complaint Chief Complaint: EDAbdPain Stated Complaint: ABD PAIN Hx Obtained From: Patient Hx Last Menstrual Period: 2weeks Onset/Duration: Gradual Onset, Lasting Days, Worse Since - few hrs Timing: Constant Severity Currently: Moderate Pain Intensity: 8 Pain Scale Used: 0-10 Numeric Location: Discrete At: LUQ Radiates: Yes Radiates to: Back Aggravating Factor(s): Food Alleviating Factor(s): Nothing Associated Signs and Symptoms: Positive: Other: - diarrhea (2 days ago and yesterday). Patient denies N/V, urinary symptoms, vaginal bleeding, CP, and SOB. Allergies/Adverse Reactions: Allergies Allergy/AdvReac Type Severity Reaction Status Date / Time Penicillins Allergy Severe Hives Verified 01/16/17 22:01 Azithromycin [From Zithromax] Allergy Intermediate Hives Verified 01/16/17 22:01 Amoxicillin [From Augmentin] Allergy Hives Verified 01/16/17 22:01 Cefaclor [From Ceclor] Allergy Hives Verified 01/16/17 22:01 Clavulanic Acid Allergy Hives Verified 01/16/17 22:01 [From Augmentin] Enalapril [From Vasotec] Allergy Unknown Verified 01/16/17 22:01 Reaction Details PMH/Surg Hx/FS Hx/Imm Hx Endocrine/Hematology History: Reports: Hx Thyroid Disease Denies: Hx Anticoagulant Therapy, Hx Diabetes Cardiovascular History: Denies: Hx Congestive Heart Failure, Hx Deep Vein Thrombosis, Hx Hypertension , Hx Myocardial Infarction, Hx Pacemaker/ICD Respiratory History: Reports: Hx Seasonal Allergies Denies: Hx Asthma, Hx Chronic Obstructive Pulmonary Disease (COPD), Hx Lung Cancer GI History: Reports: Hx Gall Bladder Disease, Hx Gastroesophageal Reflux Disease Denies: Hx Gastrointestinal Bleed, Hx Ulcer, Hx Urosepsis History: Denies: Hx Kidney Stones, Hx Renal Disease Sensory History: Denies: Hx Contacts or Glasses, Hx Hearing Aid Opthamlomology History: Denies: Hx Contacts or Glasses Neurological History: Denies: Hx Dementia, Hx Migraine, Hx Seizures, Hx Transient Ischemic Attacks (TIA) Psychiatric History: Reports: Hx Anxiety, Hx Depression Denies: Hx Schizophrenia, Hx Bipolar Disorder - Surgical History Surgery Procedure, Year, and Place: tubes in ears. lydia (september 2016) Hx Anesthesia Reactions: No Infectious Disease History: Yes Infectious Disease History: Reports: Hx of Known/Suspected MRSA - abd wall mrsa Denies: Hx Clostridium Difficile, Hx Hepatitis, Hx Human Immunodeficiency Virus (HIV), Hx Shingles, Hx Tuberculosis, Hx Known/Suspected VRE, Hx Known/ Suspected VRSA, History Other Infectious Disease, Traveled Outside the [place] in Last 30 Days - Family History Known Family History: Positive: Cardiac Disease, Hypertension, Diabetes Family History: MOM - ULCERS - Social History Alcohol Use: Occasionally Hx Substance Use: No Substance Use Type: Reports: None Hx Tobacco Use: No Smoking Status (MU): Never Smoked Tobacco Review of Systems Negative: Fever Negative: Chest Pain Negative: Shortness Of Breath Positive: Abdominal Pain, Diarrhea. Negative: Vomiting, Nausea Positive: no symptoms reported, other - Vaginal bleeding All Other Systems Reviewed And Are Negative: Yes Physical Exam - Summary Physical Exam Summary: Appearance: Well-appearing, Well-nourished Sin: Warm Eyes: Normal ENT: Normal Neck: Supple, nontender Respiratory: Clear to auscultation Cardiovascular: Normal, Normal distal pulses. Abdomen: Soft, Mild LUQ tenderness without rebound or guarding. Bowel: Present, Normal bowel sounds Musculoskeletal: Normal, Strength/ROM Intact Neurological: Normal, A&Ox3 Psychiatric: Normal Triage Information Reviewed: Yes Vital Signs On Initial Exam: Initial Vitals Temp Pulse Resp BP Pulse Ox 98.0 F 84 16 134/83 100 01/16/17 21:55 01/16/17 21:55 01/16/17 21:55 01/16/17 21:55 01/16/17 21:55 Vital Signs Reviewed: Yes - Cecilia Coma Scale Coma Scale Total: 15 Diagnostics - Vital Signs Vital Signs Temp Pulse Resp BP Pulse Ox 01/17/17 02:30 68 99/76 99 01/17/17 02:00 64 109/83 99 01/17/17 01:46 74 100 01/17/17 01:44 118/77 01/17/17 00:01 97.8 F 86 14 139/96 100 01/16/17 21:55 98.0 F 84 16 134/83 100 - Laboratory Lab Results: Lab Results 01/17/17 01/17/17 01/17/17 Range/Units 00:00 00:00 00:00 WBC 8.6 (3.5-10.8) 10^3/ul RBC 4.56 (4.0-5.4) 10^6/ul Hgb 13.2 (12.0-16.0) g/dl Hct 39 (35-47) % MCV 85 (80-97) fL MCH 29 (27-31) pg MCHC 34 (31-36) g/dl RDW 14 (10.5-15) % Plt Count 272 (150-450) 10^3/ul MPV 7 L (7.4-10.4) um3 Neut % (Auto) 61.9 (38-83) % Lymph % (Auto) 27.9 (25-47) % Rice % (Auto) 7.8 (1-9) % Eos % (Auto) 1.6 (0-6) % Baso % (Auto) 0.8 (0-2) % Absolute Neuts (auto) 5.3 (1.5-7.7) 10^3/ul Absolute Lymphs (auto) 2.4 (1.0-4.8) 10^3/ul Absolute Monos (auto) 0.7 (0-0.8) 10^3/ul Absolute Eos (auto) 0.1 (0-0.6) 10^3/ul Absolute Basos (auto) 0.1 (0-0.2) 10^3/ul Absolute Nucleated RBC 0 10^3/ul Nucleated RBC % 0 Sodium 136 (133-145) mmol/L Potassium 3.8 (3.5-5.0) mmol/L Chloride 105 (101-111) mmol/L Carbon Dioxide 28 (22-32) mmol/L Anion Gap 3 (2-11) mmol/L BUN 10 (6-24) mg/dL Creatinine 0.79 (0.51-0.95) mg/dL Est GFR ( Amer) 116.0 (>60) Est GFR (Non-Af Amer) 90.2 (>60) BUN/Creatinine Ratio 12.7 (8-20) Glucose 101 H (70-100) mg/dL Lactic Acid 0.8 (0.5-2.0) mmol/L Calcium 9.0 (8.6-10.3) mg/dL Total Bilirubin 0.50 (0.2-1.0) mg/dL AST 20 (13-39) U/L ALT 27 (7-52) U/L Alkaline Phosphatase 103 (34-104) U/L C-Reactive Protein 3.91 (< 5.00) mg/L Total Protein 7.4 (6.4-8.9) g/dL Albumin 4.4 (3.2-5.2) g/dL Globulin 3.0 (2-4) g/dL Albumin/Globulin Ratio 1.5 (1-3) Lipase 14 (11.0-82.0) U/L Beta HCG, Quant < 0.60 mIU/mL Urine Color Urine Appearance Urine pH (5-9) Ur Specific Perkins (1.010-1.030) Urine Protein (Negative) Urine Ketones (Negative) Urine Blood (Negative) Urine Nitrate (Negative) Urine Bilirubin (Negative) Urine Urobilinogen (Negative) Ur Leukocyte Esterase (Negative) Urine WBC (Auto) (Absent) Urine RBC (Auto) (Absent) Ur Squamous Epith Cells (Absent) Urine Bacteria (Absent) Urine Glucose (Negative) 01/17/17 Range/Units 00:08 WBC (3.5-10.8) 10^3/ul RBC (4.0-5.4) 10^6/ul Hgb (12.0-16.0) g/dl Hct (35-47) % MCV (80-97) fL MCH (27-31) pg MCHC (31-36) g/dl RDW (10.5-15) % Plt Count (150-450) 10^3/ul MPV (7.4-10.4) um3 Neut % (Auto) (38-83) % Lymph % (Auto) (25-47) % Rice % (Auto) (1-9) % Eos % (Auto) (0-6) % Baso % (Auto) (0-2) % Absolute Neuts (auto) (1.5-7.7) 10^3/ul Absolute Lymphs (auto) (1.0-4.8) 10^3/ul Absolute Monos (auto) (0-0.8) 10^3/ul Absolute Eos (auto) (0-0.6) 10^3/ul Absolute Basos (auto) (0-0.2) 10^3/ul Absolute Nucleated RBC 10^3/ul Nucleated RBC % Sodium (133-145) mmol/L Potassium (3.5-5.0) mmol/L Chloride (101-111) mmol/L Carbon Dioxide (22-32) mmol/L Anion Gap (2-11) mmol/L BUN (6-24) mg/dL Creatinine (0.51-0.95) mg/dL Est GFR ( Amer) (>60) Est GFR (Non-Af Amer) (>60) BUN/Creatinine Ratio (8-20) Glucose (70-100) mg/dL Lactic Acid (0.5-2.0) mmol/L Calcium (8.6-10.3) mg/dL Total Bilirubin (0.2-1.0) mg/dL AST (13-39) U/L ALT (7-52) U/L Alkaline Phosphatase (34-104) U/L C-Reactive Protein (< 5.00) mg/L Total Protein (6.4-8.9) g/dL Albumin (3.2-5.2) g/dL Globulin (2-4) g/dL Albumin/Globulin Ratio (1-3) Lipase (11.0-82.0) U/L Beta HCG, Quant mIU/mL Urine Color Yellow Urine Appearance Cloudy Urine pH 5.0 (5-9) Ur Specific Perkins 1.029 (1.010-1.030) Urine Protein Negative (Negative) Urine Ketones Negative (Negative) Urine Blood Negative (Negative) Urine Nitrate Negative (Negative) Urine Bilirubin Negative (Negative) Urine Urobilinogen Negative (Negative) Ur Leukocyte Esterase Trace H (Negative) Urine WBC (Auto) Absent (Absent) Urine RBC (Auto) Absent (Absent) Ur Squamous Epith Cells Present H (Absent) Urine Bacteria Absent (Absent) Urine Glucose Negative (Negative) Result Diagrams: 01/17/17 00:00 01/17/17 00:00 Lab Statement: Any lab studies that have been ordered have been reviewed, and results considered in the medical decision making process. Abdominal Pain Fem Course/Dx - Course Course Of Treatment: Given the patients H&P, I have a very low suspicion for serious intraabdominal or pelvic pathology. Pt refuses the treatments I have ordered for her here in the ED. Patient in NAD. I instructed her to follow up with her PCP within 2-4 days. Patient understands and agrees. - Diagnoses Provider Diagnoses: Abdominal pain Discharge - Discharge Plan Condition: Stable Disposition: HOME Patient Education Materials: Abdominal Pain (ED) Referrals: Myrtle Dumont MD [Primary Care Provider] - 2 Days Additional Instructions: RETURN TO THE EMERGENCY DEPARTMENT FOR CHANGING OR WORSENING SYMPTOMS. PLEASE MAKE AN APPOINTMENT TO SEE YOUR PRIMARY CARE DOCTOR TO BE SEEN WITHIN 1 WEEK. The documentation as recorded by the Christopher johnson Alfonso accurately reflects the service I personally performed and the decisions made by me, Rg Urban MD.
[2017-01-17 04:21] VITALS: BP 109/76
== END 2017-01-17 04:24 | disposition home or self-care (01) ==
LOC: ED 21:53
DX: R19.7 Diarrhea, unspecified (principal); R10.9 Unspecified abdominal pain
CPT/HCPCS: 36415; 80053; 81003; 81015; 83605; 83690; 84702; 85025; 86140; 87086; 99283; A9270-GY

== ENCOUNTER 2017-01-31 20:12 | Emergency (ER) | payer OTHER ==
[2017-01-31 20:22] VITALS: BP 140/81
[2017-01-31] MEDS ORDERED: Sulfamethox/Trimethoprim DS 800/160* TAB PO ONE (20:52)
--- NOTE | 2017-01-31 21:03 | UC ---
Skin Complaint HPI - HPI Summary HPI Summary: HISTORY OF MRSA WITH HOSPITALIZATION IN THE PAST, S/P SURGERY. NOTICED RED TENDER SPOT ON LEFT ABDOMEN YESTERDAY, SEEMS TO BE GROWING IN SIZE TODAY. NO FEVER. NO DISCHARGE. - History of Current Complaint Chief Complaint: UCSkin Time Seen by Provider: 01/31/17 20:46 Stated Complaint: SKIN COMPLAINT ON STOMACH Hx Obtained From: Patient Hx Last Menstrual Period: 2weeks Onset/Duration: Gradual Onset, Lasting Days Skin Exposure Onset/Duration: Days Ago Onset Severity: Mild Current Severity: Mild Character: Redness, Raised, Painful - TENDER Aggravating Factor(s): Touch Alleviating Factor(s): Nothing Associated Signs & Symptoms: Positive: Tenderness, Red Streaks. Negative: Nausea, Vomiting, Fever, Throat Tightening, Rash, Drainage, Bruising Related History: Possible Reaction to: Environmental Exposure - Allergy/Home Medications Allergies/Adverse Reactions: Allergies Allergy/AdvReac Type Severity Reaction Status Date / Time Penicillins Allergy Severe Hives Verified 01/31/17 20:22 Azithromycin [From Zithromax] Allergy Intermediate Hives Verified 01/31/17 20:22 Amoxicillin [From Augmentin] Allergy Hives Verified 01/31/17 20:22 Cefaclor [From Ceclor] Allergy Hives Verified 01/31/17 20:22 Clavulanic Acid Allergy Hives Verified 01/31/17 20:22 [From Augmentin] Enalapril [From Vasotec] Allergy Unknown Verified 01/31/17 20:22 Reaction Details Review of Systems Constitutional: Negative Skin: Rash Eyes: Negative ENT: Negative Respiratory: Negative Cardiovascular: Negative Gastrointestinal: Negative Genitourinary: Negative Motor: Negative Neurovascular: Negative Musculoskeletal: Negative Neurological: Negative Psychological: Negative Is Patient Immunocompromised?: No All Other Systems Reviewed And Are Negative: Yes PMH/Surg Hx/FS Hx/Imm Hx Previously Healthy: Yes Other History Of: Negative For: HIV, Hepatitis B, Hepatitis C, Anticoagulant Therapy - Surgical History Surgical History: Yes Surgery Procedure, Year, and Place: tubes in ears. lydia (september 2016) - Family History Known Family History: Positive: Cardiac Disease, Hypertension, Diabetes Family History: MOM - [place]LCERS - Social History Occupation: Employed Full-time Lives: With Family Alcohol Use: Occasionally Substance Use Type: None Smoking Status (MU): Never Smoked Tobacco - Immunization History Most Recent Influenza Vaccination: 02/22/14 Most Recent Tetanus Shot: 04/26/14 Most Recent Pneumonia Vaccination: none Physical Exam Triage Information Reviewed: Yes Appearance: Well-Appearing, No Pain Distress, Well-Nourished, Obese Vital Signs: Initial Vital Signs Temp 97.3 F 01/31/17 20:16 Pulse 87 01/31/17 20:16 Resp 14 01/31/17 20:16 BP 140/81 01/31/17 20:16 Pulse Ox 100 01/31/17 20:16 Vital Signs Reviewed: Yes Eye Exam: Normal ENT Exam: Normal ENT: Positive: Normal ENT inspection Dental Exam: Normal Neck exam: Normal Neck: Positive: Supple, Nontender, No Lymphadenopathy Respiratory Exam: Normal Respiratory: Positive: Chest non-tender, Lungs clear, Normal breath sounds, No respiratory distress, No accessory muscle use Cardiovascular Exam: Normal Cardiovascular: Positive: RRR, No Murmur, Pulses Normal Abdominal Exam: Normal Abdomen Description: Positive: Nontender, No Organomegaly Musculoskeletal Exam: Normal Neurological Exam: Normal Psychological Exam: Normal Skin: Positive: rashes Course/Dx - Differential Diagnoses - Skin Complaint Differential Diagnoses: Cellulitis, MRSA - Diagnoses Provider Diagnoses: MRSA HISTORY, CELLULITIS LEFT ABDOMEN Discharge - Discharge Plan Condition: Stable Disposition: HOME Prescriptions: Sulfamethox/Trimethoprim DS* [Bactrim DS 800/160 TAB*] 1 tab PO BID #20 tab Patient Education Materials: MRSA (Methicillin-Resistant Staphylococcus Aureus ) (ED), Cellulitis (ED) Referrals: Myrtle Dumont MD [Primary Care Provider] -
== END 2017-01-31 21:05 | disposition home or self-care (01) ==
LOC: UCEAST 20:12
DX: L03.311 Cellulitis of abdominal wall (principal); Z86.14 Personal history of Methicillin resistant Staphylococcus aureus infection; E66.9 Obesity, unspecified; Z88.1 Allergy status to other antibiotic agents; Z88.0 Allergy status to penicillin
CPT/HCPCS: 99212; A9270-GY; G0463

== ENCOUNTER 2017-02-15 14:20 | Emergency (ER) | payer OTHER ==
[2017-02-15 14:31] VITALS: BP 128/79
--- NOTE | 2017-02-15 14:46 | UC ---
Abdominal Pain Female HPI - HPI Summary HPI Summary: 21 year old female presents with complains of abdominal pain. - History of Current Complaint Chief Complaint: UCAbdominalPain Stated Complaint: ABDOMINAL PAIN Time Seen by Provider: 02/15/17 14:46 Hx Obtained From: Patient Hx Last Menstrual Period: end december Onset/Duration: Sudden Onset Severity Initially: Moderate Severity Currently: Moderate Pain Scale Used: 0-10 Numeric - 6 Location: Discrete At: LLQ, Epigastric Character: Aching, Burning Alleviating Factor(s): Nothing Allergies/Adverse Reactions: Allergies Allergy/AdvReac Type Severity Reaction Status Date / Time Penicillins Allergy Severe Hives Verified 02/15/17 14:31 Azithromycin [From Zithromax] Allergy Intermediate Hives Verified 02/15/17 14:31 Amoxicillin [From Augmentin] Allergy Hives Verified 02/15/17 14:31 Cefaclor [From Ceclor] Allergy Hives Verified 02/15/17 14:31 Clavulanic Acid Allergy Hives Verified 02/15/17 14:31 [From Augmentin] Enalapril [From Vasotec] Allergy Unknown Verified 02/15/17 14:31 Reaction Details Home Medications: Home Medications Clindamycin Cap(NF) [Clindamycin Cap 300 mg Cap(NF)] 300 mg PO BID 02/15/17 [ History Confirmed 02/15/17] PMH/Surg Hx/FS Hx/Imm Hx Previously Healthy: Yes Other History Of: Negative For: HIV, Hepatitis B, Hepatitis C, Anticoagulant Therapy - Surgical History Surgical History: Yes Surgery Procedure, Year, and Place: tubes in ears. cholecystectomy - Family History Known Family History: Positive: Cardiac Disease, Hypertension, Diabetes Family History: MOM - [place]LCERS - Social History Alcohol Use: Occasionally Substance Use Type: None Smoking Status (MU): Never Smoked Tobacco - Immunization History Most Recent Influenza Vaccination: 02/22/14 Most Recent Tetanus Shot: 04/26/14 Most Recent Pneumonia Vaccination: none Review of Systems Constitutional: Negative Skin: Negative Eyes: Negative ENT: Negative Respiratory: Negative Cardiovascular: Negative Gastrointestinal: Abdominal Pain Genitourinary: Negative Motor: Negative Neurovascular: Negative Musculoskeletal: Negative Neurological: Negative Psychological: Negative All Other Systems Reviewed And Are Negative: Yes Physical Exam Triage Information Reviewed: Yes Vital Signs: Initial Vital Signs Temp 36.4 C 02/15/17 14:27 Pulse 90 02/15/17 14:27 Resp 16 02/15/17 14:27 BP 128/79 02/15/17 14:27 Pulse Ox 100 02/15/17 14:27 Eye Exam: Normal ENT Exam: Normal Dental Exam: Normal Neck exam: Normal Neck: Positive: 1 Respiratory Exam: Normal Cardiovascular Exam: Normal Abdominal Exam: Normal Musculoskeletal Exam: Normal Neurological Exam: Normal Psychological Exam: Normal Skin Exam: Normal Abd Pain Female Course/Dx - Differential Dx/Diagnosis Provider Diagnoses: abdominal pain Discharge - Discharge Plan Condition: Stable Disposition: OTHER Discharge Disposition Comment: patient suggested to go to the er Patient Education Materials: Abdominal Pain (ED) Referrals: Myrtle Dumont MD [Primary Care Provider] - Additional Instructions: patient suggested to go to the er for abdominal pain
== END 2017-02-15 16:01 ==
LOC: UCEAST 14:20
DX: R10.9 Unspecified abdominal pain (principal); Z32.02 Encounter for pregnancy test, result negative
CPT/HCPCS: 81003; 81025; 84702; 99212; G0463

== ENCOUNTER 2017-02-16 21:37 | Emergency (ER) | payer OTHER ==
[2017-02-16 21:42] VITALS: BP 130/89
[2017-02-16] MEDS ORDERED: Albuterol/Ipratropium NEB.SOL* Albuterol 2.5 MG/Ipratropium 0.5 MG 3 ML INH ONE (21:53)
--- NOTE | 2017-02-16 21:55 | ED ---
HPI Cardiac - HPI Summary HPI Summary: Pt here w/ persistent cough x 2 weeks. Started as cough - over the course has had rhinorrhea, otalgia, ST from [facility]. Denies fever, chills, N/V. Was seen here yesterday for ab pain which reports is better today. She believes that was from her diarrhea which she's had for a few months now - following w/ PCP to address cause, treatment, etc. She reports she does not smoke however she lives with her mom who smokes and mom has been sick as well w/ pneumonia. - History of Current Complaint Chief Complaint: UCRespiratory Stated Complaint: SOB, COUGH Time Seen by Provider: 02/16/17 21:45 Hx Obtained From: Patient Hx Last Menstrual Period: Jan 30, 2017 - Additional Pertinent History Primary Care Physician: YIFAN - Allergy/Home Medications Allergies/Adverse Reactions: Allergies Allergy/AdvReac Type Severity Reaction Status Date / Time Penicillins Allergy Severe Hives Verified 02/16/17 21:43 Azithromycin [From Zithromax] Allergy Intermediate Hives Verified 02/16/17 21:43 Amoxicillin [From Augmentin] Allergy Hives Verified 02/16/17 21:43 Cefaclor [From Ceclor] Allergy Hives Verified 02/16/17 21:43 Clavulanic Acid Allergy Hives Verified 02/16/17 21:43 [From Augmentin] Enalapril [From Vasotec] Allergy Unknown Verified 02/16/17 21:43 Reaction Details PMH/Surg Hx/FS Hx/Imm Hx Previously Healthy: Yes Endocrine/Hematology History: Reports: Hx Thyroid Disease - thyroiditis, has resolved Denies: Hx Anticoagulant Therapy, Hx Diabetes Cardiovascular History: Denies: Hx Congestive Heart Failure, Hx Deep Vein Thrombosis, Hx Hypertension , Hx Myocardial Infarction, Hx Pacemaker/ICD Respiratory History: Reports: Hx Seasonal Allergies Denies: Hx Asthma, Hx Chronic Obstructive Pulmonary Disease (COPD) - 2nd hand smoke exposure since child and continues, Hx Lung Cancer GI History: Reports: Hx Gall Bladder Disease, Hx Gastroesophageal Reflux Disease Denies: Hx Gastrointestinal Bleed, Hx Ulcer, Hx Urosepsis History: Denies: Hx Kidney Stones, Hx Renal Disease Sensory History: Denies: Hx Contacts or Glasses, Hx Hearing Aid Opthamlomology History: Denies: Hx Contacts or Glasses Neurological History: Denies: Hx Dementia, Hx Migraine, Hx Seizures, Hx Transient Ischemic Attacks (TIA) Psychiatric History: Reports: Hx Anxiety, Hx Depression Denies: Hx Schizophrenia, Hx Bipolar Disorder - Surgical History Surgery Procedure, Year, and Place: tubes in ears. cholecystectomy Hx Anesthesia Reactions: No Infectious Disease History: Yes Infectious Disease History: Reports: Hx of Known/Suspected MRSA - abd wall mrsa Denies: Hx Clostridium Difficile, Hx Hepatitis, Hx Human Immunodeficiency Virus (HIV), Hx Shingles, Hx Tuberculosis, Hx Known/Suspected VRE, Hx Known/ Suspected VRSA, History Other Infectious Disease, Traveled Outside the [place] in Last 30 Days - Family History Known Family History: Positive: Cardiac Disease, Hypertension, Diabetes Family History: MOM - ULCERS - Social History Lives: With Family Alcohol Use: Occasionally Hx Substance Use: No Substance Use Type: Reports: None Hx Tobacco Use: No Smoking Status (MU): Never Smoked Tobacco Review of Systems Positive: Fatigue. Negative: Fever, Chills Eyes: Negative Negative: Drainage, Erythema Positive: Sore Throat, Nasal Discharge. Negative: Ear Ache Cardiovascular: Negative Negative: Palpitations, Chest Pain Positive: Shortness Of Breath - with coughing, Cough Positive: Diarrhea - chronic. Negative: Abdominal Pain, Vomiting, Nausea Positive: no symptoms reported Musculoskeletal: Negative Skin: Negative Negative: Rash Neurological: Negative Negative: Headache Psychological: Normal All Other Systems Reviewed And Are Negative: Yes Physical Exam Triage Information Reviewed: Yes Vital Signs On Initial Exam: Initial Vitals Temp Pulse Resp BP Pulse Ox 98.4 F 90 18 130/89 100 02/16/17 21:40 02/16/17 21:40 02/16/17 21:40 02/16/17 21:40 02/16/17 21:40 Vital Signs Reviewed: Yes Appearance: Positive: Ill-Appearing - appears fatigued, sagging under eyes - coughs easily w/ deep breath and talking, Obese Skin: Positive: Warm, Dry - no rash - warm to touch Head/Face: Positive: Normal Head/Face Inspection - sinuses NTTP Eyes: Positive: Normal, EOMI, Conjunctiva Clear. Negative: Conjunctiva Inflammed, Discharge ENT: Positive: Hearing grossly normal, Pharynx normal - cobblestoning, Nasal congestion, TMs normal. Negative: Nasal drainage, Trismus, Muffled voice Neck: Positive: Supple, Nontender, No Lymphadenopathy Respiratory/Lung Sounds: Positive: Breath Sounds Present, Other - coughs easily and frequently. Negative: Rales, Rhonchi, Wheezes Cardiovascular: Positive: Normal, RRR, S1, S2. Negative: Murmur, Rub Abdomen Description: Positive: Nontender, No Organomegaly, Soft Bowel Sounds: Positive: Present Musculoskeletal: Positive: Normal, Strength/ROM Intact Neurological: Positive: Normal, Sensory/Motor Intact, Alert, Oriented to Person Place, Time, CN Intact II-III Psychiatric: Positive: Normal Procedures - Procedure Summary Procedure Summary: duoneb - pt reports improvement of sx - still CTA Diagnostics - Vital Signs Vital Signs Temp Pulse Resp BP Pulse Ox 02/16/17 21:40 98.4 F 90 18 130/89 100 - Laboratory Lab Statement: Any lab studies that have been ordered have been reviewed, and results considered in the medical decision making process. Re-Evaluation - Re-Evaluation First Eval Change: Improved - pt reports her chest feels more open/relaxed and she can breath easier Disposition - Diagnoses Provider Diagnoses: Bronchitis Discharge - Discharge Plan Condition: Stable Disposition: HOME Prescriptions: Albuterol HFA INHALER* [Ventolin HFA Inhaler*] 2 puff INH Q6H PRN #1 mdi PRN Reason: Cough Benzonatate CAP* [Tessalon 100 MG CAP*] 100 mg PO TID PRN #15 cap PRN Reason: Cough Patient Education Materials: Acute Bronchitis (ED) Referrals: Myrtle Dumont MD [Primary Care Provider] - Additional Instructions: Nasal wash (netti pot) & throat gargle 2 x day with 8 ounces of warm water + 1/ 4 teaspoon of salt - KEEPING YOUR POST NASAL DRIP AT BAY WILL REDUCE COUGH Drink 60+ ounces of water daily Sleep 8+ hours per night Avoid Dairy and sugar Hot herbal/decaf tea with lemon & honey Cough suppressing lozenges Chicken broth (preferably organic, free range chicken) Humidifier in house, but especially near bed at night Try a facial steam with or without eucalyptus essential oil OR Vicks vapor rub Consider taking Vitamin D3 5,000iu and Vitamin C 1,000mg every day during illness Follow-up with PCP if symptoms persist *If you develop shortness of breath, fever, chills, chest pain, worsening of cough, headache, neck stiffness, vomiting, go to ED
== END 2017-02-16 22:20 | disposition home or self-care (01) ==
LOC: UCEAST 21:37
DX: J40 Bronchitis, not specified as acute or chronic (principal); K21.9 Gastro-esophageal reflux disease without esophagitis; F41.9 Anxiety disorder, unspecified; F32.9 Major depressive disorder, single episode, unspecified; Z90.49 Acquired absence of other specified parts of digestive tract; Z88.1 Allergy status to other antibiotic agents; Z88.0 Allergy status to penicillin; Z88.8 Allergy status to other drugs, medicaments and biological substances
CPT/HCPCS: 99212; A9270-GY; G0463

== ENCOUNTER 2017-02-26 16:12 | Emergency (ER) | payer OTHER | END 2017-02-26 16:15 | disposition left against medical advice (07) | LOC: UCEAST 16:12 | DX: R10.9 Unspecified abdominal pain (principal); Z53.21 Procedure and treatment not carried out due to patient leaving prior to being seen by health care provider ==

== ENCOUNTER 2017-09-03 08:32 | Emergency (ER) | payer OTHER ==
[2017-09-03 08:49] VITALS: BP 133/77
--- NOTE | 2017-09-03 09:57 | UC ---
Deshawn Mireles Rebecca, scribed for Rajendra Banegas MD on 09/03/17 at 0854 . Skin Complaint HPI - HPI Summary HPI Summary: Pt is a 21 y/o F who presents to [facility] c/o swelling under the right eye. Pt reports that yesterday she went out to feed her horse, took a nap, and woke up with mild swelling. Sx have gradually worsening since onset. Reports that it is slightly tender on the bone with palpation. Denies any pruritis, drainage , fever, chills, eye pain. Is not aware of any insect bites. Pt is 7 months , due in October. - History of Current Complaint Chief Complaint: [facility] Time Seen by Provider: 09/03/17 08:43 Stated Complaint: SWOLLEN AREA UNDER EYE Hx Obtained From: Patient Hx Last Menstrual Period: Jan 30, 2017 Onset/Duration: Lasting Days - Yesterday, Still Present Current Severity: None Pain Intensity: 0 Pain Scale Used: 0-10 Numeric Location: Other - Under the R eye Character: Swelling Aggravating Factor(s): Nothing Alleviating Factor(s): Nothing Associated Signs & Symptoms: Positive: Negative - Allergy/Home Medications Allergies/Adverse Reactions: Allergies Allergy/AdvReac Type Severity Reaction Status Date / Time amoxicillin [From Augmentin] Allergy Hives Verified 09/03/17 08:51 azithromycin Allergy Hives Verified 09/03/17 08:51 cefaclor [From Ceclor] Allergy Hives Verified 09/03/17 08:51 clavulanic acid Allergy Hives Verified 09/03/17 08:51 [From Augmentin] enalaprilat [From Vasotec] Allergy Unknown Verified 09/03/17 08:51 Reaction Details Penicillins Allergy Hives Verified 09/03/17 08:51 Review of Systems Constitutional: Negative Skin: Other - Swelling under the R eye Eyes: Negative ENT: Negative Respiratory: Negative Cardiovascular: Negative Gastrointestinal: Negative Genitourinary: Negative Motor: Negative Neurovascular: Negative Musculoskeletal: Negative Neurological: Negative Psychological: Negative All Other Systems Reviewed And Are Negative: Yes - Comments Additional Review of Systems Comments: NEGATIVE: Pruritis, drainage, fever, chills, eye pain PMH/Surg Hx/FS Hx/Imm Hx - Additional Past Medical History Additional PMH: NEGATIVE PMHx: COPD, Asthma, DM, HTN Endocrine History: Thyroid Disease - Thyroiditis - resolved Other History Of: Negative For: HIV, Hepatitis B, Hepatitis C, Anticoagulant Therapy - Surgical History Surgical History: Yes Surgery Procedure, Year, and Place: tubes in ears. cholecystectomy - Family History Known Family History: Positive: Cardiac Disease, Hypertension, Diabetes Family History: MOM - [place] - Social History Alcohol Use: None Substance Use Type: None Smoking Status (MU): Never Smoked Tobacco - Immunization History Most Recent Influenza Vaccination: 02/22/14 Most Recent Tetanus Shot: 04/26/14 Most Recent Pneumonia Vaccination: none Physical Exam - Summary Physical Exam Summary: Appearance: Well appearing, no pain distress Skin: warm, dry, reflects adequate perfusion Head/face: normal Eyes: EOMI, CHRISTINA, she has a soft, slightly tender, slightly erythematous area in the infraorbital region of the right eye with no open wounds and no drainage ENT: normal Neck: supple, non-tender Respiratory: CTA, breath sounds present Cardiovascular: RRR, pulses symmetrical Neuro: normal, sensory motor intact, A&Ox3 Triage Information Reviewed: Yes Vital Signs: Initial Vital Signs Temp 97.3 F 09/03/17 08:41 Pulse 100 09/03/17 08:41 Resp 16 09/03/17 08:41 BP 133/77 09/03/17 08:41 Pulse Ox 99 09/03/17 08:41 Vital Signs Reviewed: Yes Course/Dx - Course Course Of Treatment: Soft, slightly erythematous area under the right eye with minimal tenderness. Does not really appear to be cellulitic. Likely is insect bite with local reaction. I recommended 1 topical treatment with hydrocortisone and oral Benadryl. I will also place her on antibiotics in the off chance that this is early cellulitis. She is and so I will not give prednisone. - Diagnoses Provider Diagnoses: Allergic reaction, insect bite Discharge - Sign-Out/Discharge Documenting (check all that apply): Discharge/Admit/Transfer - Discharge - Discharge Plan Condition: Good Disposition: HOME Prescriptions: Clindamycin Cap(NF) [Clindamycin Cap 300 mg Cap(NF)] 300 mg PO TID #15 cap Patient Education Materials: Insect Bite or Sting (ED) Referrals: Myrtle Duomnt MD [Primary Care Provider] - Additional Instructions: Use one treatment with topical hydrocortisone to the area. Benadryl orally if itching. Warm compresses to the area. Return if worse, pain, eye pain, new symptoms or other concerns. - Billing Disposition and Condition Condition: GOOD Disposition: Home The documentation as recorded by the Deshawn johnson Rebecca accurately reflects the service I personally performed and the decisions made by me, Rajendra Banegas MD.
== END 2017-09-03 08:56 | disposition home or self-care (01) ==
LOC: UCEAST 08:32
DX: O26.893 Other specified pregnancy related conditions, third trimester (principal); S00.261A Insect bite (nonvenomous) of right eyelid and periocular area, initial encounter; W57.XXXA Bitten or stung by nonvenomous insect and other nonvenomous arthropods, initial encounter; Y93.9 Activity, unspecified; Y92.9 Unspecified place or not applicable; Z88.1 Allergy status to other antibiotic agents; Z88.0 Allergy status to penicillin; Z82.49 Family history of ischemic heart disease and other diseases of the circulatory system; Z83.3 Family history of diabetes mellitus
CPT/HCPCS: 99212; G0463

== ENCOUNTER 2017-09-10 14:11 | Emergency (ER) | payer OTHER ==
[2017-09-10 14:20] VITALS: BP 110/71
--- NOTE | 2017-09-10 14:44 | UC ---
Upper Extremity HPI - HPI Summary HPI Summary: This patient is a 21 year old F presenting to [facility] with a chief complaint of right wrist pain since earlier this afternoon. The patient reports that the pain began after she tripped and fell today. The patient is 7 months . She denies hitting her abdomen when she fell. The patient rates the pain 6/10 in severity. Symptoms aggravated by nothing. Symptoms alleviated by nothing. Patient denies any abdominal pain, vaginal bleeding or vaginal discharge. - History of Current Complaint Chief Complaint: UCUpperExtremity Stated Complaint: WRIST INJURY Time Seen by Provider: 09/10/17 14:28 Hx Obtained From: Patient Hx Last Menstrual Period: Jan 30, 2017 Onset/Duration: Sudden Onset, Lasting Hours, Still Present Severity Initially: Mild Severity Currently: Mild Pain Intensity: 6 Pain Scale Used: 0-10 Numeric Aggravating Factor(s): Nothing Alleviating Factor(s): Nothing Associated Signs And Symptoms: Positive: Numbness/Tingling - Allergies/Home Medications Allergies/Adverse Reactions: Allergies Allergy/AdvReac Type Severity Reaction Status Date / Time amoxicillin [From Augmentin] Allergy Hives Verified 09/10/17 14:20 azithromycin Allergy Hives Verified 09/10/17 14:20 cefaclor [From Ceclor] Allergy Hives Verified 09/10/17 14:20 clavulanic acid Allergy Hives Verified 09/10/17 14:20 [From Augmentin] enalaprilat [From Vasotec] Allergy Unknown Verified 09/10/17 14:20 Reaction Details Penicillins Allergy Hives Verified 09/10/17 14:20 Home Medications: Home Medications NK [No Home Medications Reported] 09/10/17 [History Confirmed 09/10/17] PMH/Surg Hx/FS Hx/Imm Hx Previously Healthy: Yes Other History Of: Negative For: HIV, Hepatitis B, Hepatitis C, Anticoagulant Therapy - Surgical History Surgical History: Yes Surgery Procedure, Year, and Place: tubes in ears. cholecystectomy - Family History Known Family History: Positive: Cardiac Disease, Hypertension, Diabetes Family History: MOM - [place] - Social History Alcohol Use: None Substance Use Type: None Smoking Status (MU): Never Smoked Tobacco - Immunization History Most Recent Influenza Vaccination: 02/22/14 Most Recent Tetanus Shot: 04/26/14 Most Recent Pneumonia Vaccination: none Review of Systems Constitutional: Negative - negative fever ENT: Negative - negative epistaxis Gastrointestinal: Negative - negative abd pain Musculoskeletal: Arthralgia - right wrist pain All Other Systems Reviewed And Are Negative: Yes Physical Exam - Summary Physical Exam Summary: VITAL SIGNS: Reviewed. GENERAL: Patient is a well-developed and nourished FEMALE who is lying comfortable in the stretcher. Patient is not in any acute respiratory distress. HEAD AND FACE: Normocephalic EYES: PERRLA, EOMI x 2. EARS: Hearing grossly intact. MOUTH: Oropharynx within normal limits. NECK: Supple, trachea is midline, no adenopathy, no JVD, no carotid bruit. CHEST: Symmetric, no tenderness at palpation LUNGS: Clear to auscultation bilaterally. No wheezing or crackles. CVS: Regular rate and rhythm, S1 and S2 present, no murmurs or gallops appreciated. ABDOMEN: Soft, non-tender. Bowel sounds are normal. No abdominal abnormal pulsations. EXTREMITIES: no edema, no cyanosis or clubbing. No deformities or hematomas to right wrist. Decreased ROM in right wrist secondary to pain NEURO: Alert and oriented x 3. No acute neurological deficits. Speech is normal and follows commands. SKIN: Dry and warm Triage Information Reviewed: Yes Vital Signs: Initial Vital Signs Temp 98.7 F 09/10/17 14:15 Pulse 89 09/10/17 14:15 Resp 18 09/10/17 14:15 BP 110/71 09/10/17 14:15 Pulse Ox 100 09/10/17 14:15 Vital Signs Reviewed: Yes Diagnostics - Radiology Right wrist XR Xray Interpretation: Positive (See Comments) - IMPRESSION: #. Mild diastases at the scapholunate interval may be congenital or reflect a scapholunate ligament tear. Correlate with clinical assessment and consider MRI arthrogram for further evaluation if deemed appropriate. Dr. Abbasi has reviewed this report. Radiology Interpretation Completed By: Radiologist Upper Extremity Course/Dx - Course Course Of Treatment: X-ray impression: No acute fracture dislocation. Mild diastases at the scapholunate interval may be congenital or reflect a scapholunate ligament tear. Patient was placed in a wrist splint and discharged home with follow-up with orthopedics. She will take Tylenol for pain. - Differential Dx/Diagnosis Provider Diagnoses: Right wrist pain, possible ligament tear Discharge - Sign-Out/Discharge Documenting (check all that apply): Patient Departure - Discharge Plan Condition: Stable Disposition: HOME Patient Education Materials: Wrist Injury (ED), Arthralgia (ED) Referrals: Myrtle Dumont MD [Primary Care Provider] - Giovany Alfonso MD [Medical Doctor] - 1 Week (Follow up with Dr. Alfonso, orthopedist, within 1 week.) Additional Instructions: Due to possible ligament tear, please follow up with Dr. Alfonso, orthopedist, within 1 week. Return to Urgent Care with any new or worsening symptoms. - Billing Disposition and Condition Condition: STABLE Disposition: Home
--- NOTE | 2017-09-10 15:16 | RAD ---
INDICATION: RIGHT wrist pain. 7 months . COMPARISON: No relevant prior exams available on the [facility] PACS for comparison. TECHNIQUE: AP and lateral views RIGHT wrist. REPORT: Mild diastases at the scapholunate interval. Articular alignment is otherwise unremarkable. Preserved joint spaces. No cortical disruption or suspicious trabecular irregularity to suggest fracture. Unremarkable soft tissue contours. IMPRESSION: #. Mild diastases at the scapholunate interval may be congenital or reflect a scapholunate ligament tear. Correlate with clinical assessment and consider MRI arthrogram for further evaluation if deemed appropriate.
== END 2017-09-10 15:40 | disposition home or self-care (01) ==
LOC: UCEAST 14:11
DX: O26.893 Other specified pregnancy related conditions, third trimester (principal); M25.531 Pain in right wrist; Z3A.30 30 weeks gestation of pregnancy; Z88.1 Allergy status to other antibiotic agents; Z88.0 Allergy status to penicillin; Z82.49 Family history of ischemic heart disease and other diseases of the circulatory system; Z83.3 Family history of diabetes mellitus
CPT/HCPCS: 99212; G0463

== ENCOUNTER 2017-10-05 18:22 | Emergency (ER) | payer OTHER ==
[2017-10-05 18:31] VITALS: BP 111/74
--- NOTE | 2017-10-05 18:49 | UC ---
Skin Complaint HPI - HPI Summary HPI Summary: This is elizabeth Kothari documenting for attending Aries Almanza MD. This patient is a 21 year old F presenting to [facility] with a chief complaint of an abscess in her umbilicus since about 3 days ago. The patient rates the pain 3 /10 in severity. She drained some pus from her old belly button piercing. Patient reports hives starting last night that cover her entire abdomen. She is allergic to a lot of antibiotics. She has a PMHx of MRSA, for which they successfully used Bactrim. The patient is 8 months . - History of Current Complaint Chief Complaint: UCSkin Time Seen by Provider: 10/05/17 18:39 Stated Complaint: RASH Hx Obtained From: Patient Hx Last Menstrual Period: Jan 30, 2017 ?: Yes - 8 months Onset/Duration: Lasting Days - Abscess since 3 days ago, hives since last night , Still Present Onset Severity: Mild Current Severity: Mild Pain Intensity: 3 Pain Scale Used: 0-10 Numeric Location: Other - Abscess on umbilicus. Diffuse hives across the abdomen - Allergy/Home Medications Allergies/Adverse Reactions: Allergies Allergy/AdvReac Type Severity Reaction Status Date / Time amoxicillin [From Augmentin] Allergy Hives Verified 10/05/17 18:31 azithromycin Allergy Hives Verified 10/05/17 18:31 cefaclor [From Ceclor] Allergy Hives Verified 10/05/17 18:31 clavulanic acid Allergy Hives Verified 10/05/17 18:31 [From Augmentin] enalaprilat [From Vasotec] Allergy Unknown Verified 10/05/17 18:31 Reaction Details Penicillins Allergy Hives Verified 10/05/17 18:31 Review of Systems Constitutional: Other - 8 months Skin: Rash - Hives across the abdomen, Other - Abscess on umbilicus All Other Systems Reviewed And Are Negative: Yes PMH/Surg Hx/FS Hx/Imm Hx Previously Healthy: Yes - PMHx of MRSA Endocrine History: Diabetes - Denies diabetes Other History Of: Negative For: HIV, Hepatitis B, Hepatitis C, Anticoagulant Therapy - Surgical History Surgical History: Yes Surgery Procedure, Year, and Place: tubes in ears. cholecystectomy - Family History Known Family History: Positive: Hypertension Negative: Cardiac Disease, Diabetes Family History: MOM - [place]LCERS - Social History Occupation: Unemployed Lives: With Family Alcohol Use: None Substance Use Type: None Smoking Status (MU): Never Smoked Tobacco Have You Smoked in the Last Year: No - Immunization History Most Recent Influenza Vaccination: 02/22/14 Most Recent Tetanus Shot: 04/26/14 Most Recent Pneumonia Vaccination: none Physical Exam - Summary Physical Exam Summary: General: well-appearing, no pain distress Skin: At the superior aspect of the umbilicus is the site of a former skin piercing where theres mild swelling. No erythema. Head: normal Eyes: EOMI, CHRISTINA ENT: normal Neck: supple, nontender Respiratory: CTA, breath sounds present Cardiovascular: RRR Abdomen: soft, nontender. Gravid abdomen. Bowel: present Musculoskeletal: normal, strength/ROM intact Neurological: sensory/motor intact, A&O x3 Psychological: affect/mood appropriate Triage Information Reviewed: Yes Vital Signs: Initial Vital Signs Temp 97.8 F 10/05/17 18:27 Pulse 90 10/05/17 18:27 Resp 16 10/05/17 18:27 BP 111/74 10/05/17 18:27 Pulse Ox 99 10/05/17 18:27 Course/Dx - Course Course Of Treatment: THERE WAS NO DRAINABLE FLUID COLLECTION ON EXAM. F/U PMD; RECHECK SOONER IF WORSE. - Diagnoses Provider Diagnoses: SKIN ABSCESS Discharge - Sign-Out/Discharge Documenting (check all that apply): Patient Departure - Discharge Plan Condition: Stable Disposition: HOME Prescriptions: Clindamycin Cap(NF) [Clindamycin Cap 300 mg Cap(NF)] 300 mg PO QID #40 cap Patient Education Materials: Abscess (ED) Referrals: Myrtle Dumont MD [Primary Care Provider] - Additional Instructions: FOLLOW UP WITH YOUR DOCTOR IF NOT COMPLETELY IMPROVED. GET RECHECKED FOR ANY WORSENING OF YOUR CONDITION OR QUESTIONS OR CONCERNS. - Billing Disposition and Condition Condition: STABLE Disposition: Home
== END 2017-10-05 18:57 | disposition home or self-care (01) ==
LOC: UCEAST 18:22
DX: O26.893 Other specified pregnancy related conditions, third trimester (principal); L02.216 Cutaneous abscess of umbilicus; L50.9 Urticaria, unspecified; Z3A.34 34 weeks gestation of pregnancy; Z88.1 Allergy status to other antibiotic agents; Z88.0 Allergy status to penicillin; Z86.14 Personal history of Methicillin resistant Staphylococcus aureus infection; Z82.49 Family history of ischemic heart disease and other diseases of the circulatory system
CPT/HCPCS: 99212; G0463

== ENCOUNTER 2017-10-21 21:18 | Inpatient (IN) | payer OTHER ==
[2017-10-22] MEDS ORDERED: Nalbuphine* 10 MG/ML 1 ML VIAL ONE (01:36)
[2017-10-22] MEDS ORDERED: Promethazine INJ(RESTRICTED)* 25 MG/ML 1 ML VIAL ONE (01:36)
[2017-10-22] MEDS ORDERED: Nalbuphine* 10 MG/ML 1 ML VIAL IM ONE (02:00)
[2017-10-22] MEDS ORDERED: Promethazine INJ(RESTRICTED)* 25 MG/ML 1 ML VIAL IM ONE (02:00)
--- NOTE | 2017-10-22 06:11 | PN ---
Progress Note - Progress Note Date of Service: 10/22/17 Note: S: Pt presented last night for labor evaluation following membrane sweep in the office and ongoing painful UCs. Was able to rest s/p IM Nubain and Phenergain around 0200. Now requesting labor epidural O: BP: 116/80 HR 84 RR 18 T 97.7 FHT: 130bpm. Moderate variability. No decels UCs q 4-5 x 60-70 sec VE: 3cm/50%/vtx -1 (modest change from in office yesterday when she was 1-2/50%/ vtx -2) A: IUP at 37-5/7 not in active labor No evidence of metabolic acidemia P: Discussed that at 37-5/7 I do not recommend placing an epidural until her body declares itself in active labor as we cannot actively manage her labor at 37 weeks. Offered trial of IV fluids. Can consider a repeat dose of Nubain/ Phenergan. Will continue to monitor. Report to Chester Simmons CNM who will assume care at 0800
[2017-10-22 06:22] LABS: ABS Basophils 0.1 10^3/ul (0-0.2); ABS Eosinophils 0.1 10^3/ul (0-0.6); ABS Lymphocytes 2.9 10^3/ul (1.0-4.8); ABS Monocytes 0.9 10^3/ul (0-0.8); ABS Neutrophils 10.5 10^3/ul (1.5-7.7); ABS Nucleated RBC 0 10^3/ul; Eosinophil % 0.8 % (0-6); Hematocrit 30 % (35-47); Hemoglobin 10.1 g/dl (12.0-16.0); Mean Corpuscular HGB Conc 33 g/dl (31-36); Mean Corpuscular Hemoglobin 25 pg (27-31); Mean Corpuscular Volume 75 fL (80-97); Mean Platelet Volume 7.3 um3 (7.4-10.4); Nucleated Red Blood Cells % 0; Platelet Count 268 10^3/ul (150-450); Red Blood Count 4.08 10^6/ul (4.00-5.40); Red Cell Distribution Width 16 % (10.5-15); White Blood Count 14.6 10^3/ul (3.5-10.8)
--- NOTE | 2017-10-22 08:39 | HP ---
General Information - Reason for Visit contractions - General Information Maternal Age: 22 Grav: 3 Para: 2 SAB: 0 IEA: 0 Estimated Due Date: 11/07/17 Determined By: Early Ultrasound Maternal Blood Type and Rh: A Positive - Results this Serology/RPR Result: Non-Reactive Rubella Result: Immune HBsAg Result: Negative HIV Result: Negative GBS Culture Result: Negative Past Medical History Delivery History: Hx Uncomplicated Vaginal Delivery Past Medical History Comment: MRSA 2016--swab negative 05/2017 Past Surgical History Comment: ani freeman 09/2016 Pertinent Family History: Non-Contributory - Antepartal Records Antepartal Records: Reviewed, Complicated by: - echogenic focus heart, NIPT normal Review of Systems Constitutional: Uncomfortable CV Complaint: No Respiratory: Shortness of Breath: No Gastrointestinal: Nausea Genitourinary: No Leaking Fluid Musculoskeletal: Back Pain, Contractions Neurological: No Headache Movement: Normal Exam Allergies/Adverse Reactions: Allergies amoxicillin [From Augmentin] Allergy (Verified 10/21/17 21:37) Hives azithromycin Allergy (Verified 10/21/17 21:37) Hives cefaclor [From Ceclor] Allergy (Verified 10/21/17 21:37) Hives clavulanic acid [From Augmentin] Allergy (Verified 10/21/17 21:37) Hives enalaprilat [From Vasotec] Allergy (Verified 10/21/17 21:37) Unknown Reaction Details Penicillins Allergy (Verified 10/21/17 21:37) Hives Lab Values - Entire Visit: Laboratory Tests 10/22/17 10/22/17 05:54 05:54 WBC 14.6 H RBC 4.08 Hgb 10.1 L Hct 30 L MCV 75 L MCH 25 L MCHC 33 RDW 16 H Plt Count 268 MPV 7.3 L Neut % (Auto) 72.1 Lymph % (Auto) 20.0 L [place] % (Auto) 6.2 Eos % (Auto) 0.8 Baso % (Auto) 0.9 Absolute Neuts (auto) 10.5 H Absolute Lymphs (auto) 2.9 Absolute Monos (auto) 0.9 H Absolute Eos (auto) 0.1 Absolute Basos (auto) 0.1 Absolute Nucleated RBC 0 Nucleated RBC % 0 Blood Type A Positive Antibody Screen Negative - Measurements Height: 5 ft 2 in Weight: 184 lb Weight in lbs: 184.268086 Body Mass Index (BMI): 33.6 Pre- Weight: 170 lb 0.013 oz Weight Gained This : 13.999 lbs and 0.003 ozs - Exam Breast: - - soft, no masses Extremities: No Edema Heart: Normal Rhythm/Heart Sounds HEENT: No Significant Findings Lungs: Clear Bilaterally Reflexes: DTR 2+ Thyroid: No Thyromegaly - Ultrasound/Biophysical Profile Ultrasound Status: Not Done Targeted Exam Findings Estimated Weight: 7 lbs Cervical Exam: 4cm Effacement: 70% Station: -1 Presenting Part: Vertex Membrane Status: Intact EFM Findings - External Monitor Findings Baseline Heart Rate: 130 External Monitor Findings: Accelerations Present, No Pattern of Variable or Late Decelerations, Variability Moderate, Baseline Stable External Monitor Findings Comment: category 1 Contractions: Regular, Moderate, 45-90 Seconds Contraction Frequency: every 6 min Assessment/Plan - Assessment at 37 w 5 d, labor - Plan Plan: Admit - Anticipate Vaginal Delivery Plan Comment: 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 Wants epidural - Date/Time of Admission Date of Admission: 10/22/17 Time of Admission: 08:15
[2017-10-22] MEDS ORDERED: OBEPIDURAL* 250 ML EPIDURAL ONE (09:20)
[2017-10-22] MEDS ORDERED: Phenylephrine IV* 40 MCG/ML 10 ML SYRINGE IV PUSH PRN ×2 (09:59)
[2017-10-22] MEDS ORDERED: Sodium Citrate/Citric Acid* 15 ML UDC PO PRN (09:59)
[2017-10-22] MEDS ORDERED: EPHEDrine (Pressors)* 50 MG/ML VIAL IV PUSH PRN ×2 (09:59)
[2017-10-22] MEDS ORDERED: Famotidine TAB* 20 MG PO PRN (09:59)
[2017-10-22] MEDS ORDERED: OBEPIDURAL* 250 ML EPIDURAL SCH (10:00)
[2017-10-22] MEDS ORDERED: Oxytocin in LR* 20 UNITS/1,000 ML BAG IVPB SCH ×2 (14:15→19:00)
[2017-10-22] MEDS ORDERED: Oxytocin in LR* 20 UNITS/1,000 ML BAG IVPB ONE (14:17)
[2017-10-22] MEDS ORDERED: Witch Hazel PAD* JAR TOPICAL PRN (18:18)
[2017-10-22] MEDS ORDERED: Acetaminophen TAB* 325 MG PO PRN (18:18)
[2017-10-22] MEDS ORDERED: Dibucaine 1% 28.35 GM TUBE PR PRN (18:18)
[2017-10-22] MEDS ORDERED: Glycerin ADULT SUPP PR PRN (18:18)
--- NOTE | 2017-10-22 18:39 | PROCNOTE ---
[facility] OB: Delivery Note - Delivery A Date of : 10/22/17 Time of : 17:59 [place] Sex: Male Score 1 Minute: 9 Score 5 Minutes: 10 Gestational Age in Weeks and Days at Delivery: 37 Weeks and 5 Days Delivery Method: Spontaneous Vaginal Labor: Spontaneous Amniotic Fluid: Clear Estimated Blood Loss: 100 Anesthesia/Analgesia: CEI for Labor Anesthesia Comment: Dr. Allred Delivered By: Jesus Ott - Nursery Level of Nursery: Regular/Bedside - Perineum Perineal Injury: None/Intact - Events Delivery Events of Note Comment: precipitous delivery by RN - Additional Delivery Notes Additional Delivery Notes: RN in room to adjust monitor, pt c/o pressure, was , delivered by Jesus Ott RN at 1759. CAN x1, delivered through loop. I arrived in room at 1800, infant on maternal abd, pink, vigorous. Cord clamped/cut. Placenta [place] at 1804, intact. FF, IV with pitocin running. Perineum intact. EBL 100cc. Mother and baby in good condition
[2017-10-22] MEDS: Docusate CAP* 100 MG PO SCH (21:42)
[2017-10-22] MEDS: Ibuprofen TAB* 600 MG PO PRN (21:42)
[2017-10-23 07:19] LABS: Hematocrit 26 % (35-47); Hemoglobin 8.8 g/dl (12.0-16.0); Mean Corpuscular HGB Conc 34 g/dl (31-36); Mean Corpuscular Hemoglobin 25 pg (27-31); Mean Corpuscular Volume 75 fL (80-97); Mean Platelet Volume 7.5 um3 (7.4-10.4); Platelet Count 215 10^3/ul (150-450); Red Blood Count 3.46 10^6/ul (4.00-5.40); Red Cell Distribution Width 16 % (10.5-15); White Blood Count 11.8 10^3/ul (3.5-10.8)
[2017-10-23] MEDS: Docusate CAP* 100 MG PO SCH ×3 (08:55→20:21)
[2017-10-23] MEDS: Ferrous Gluconate TAB* 324 MG TAB PO SCH ×2 (08:55→20:20)
[2017-10-23] MEDS: Ibuprofen TAB* 600 MG PO PRN ×2 (10:45→20:20)
[2017-10-24 08:35] VITALS: BP 114/67
[2017-10-24] MEDS: Ferrous Gluconate TAB* 324 MG TAB PO SCH (09:04)
[2017-10-24] MEDS: Docusate CAP* 100 MG PO SCH (09:04)
== END 2017-10-24 13:02 | disposition home or self-care (01) | DRG 560 ==
LOC: MCHOBOUT 21:18 → MCHOB 10-22 08:11
PROVIDERS: ADMIT Midwife; ATTEND Midwife
PROC: 10E0XZZ Delivery of Products of Conception, External Approach (ICD-10-PCS; principal; 2017-10-22)
PROC: 10907ZC Drainage of Amniotic Fluid, Therapeutic from Products of Conception, Via Natural or Artificial Opening (ICD-10-PCS; 2017-10-22)
DX: O60.23X1 Term delivery with preterm labor, third trimester, fetus 1 (principal); O69.81X0 Labor and delivery complicated by cord around neck, without compression, not applicable or unspecified; O90.81 Anemia of the puerperium; D64.9 Anemia, unspecified; Z3A.37 37 weeks gestation of pregnancy; Z37.0 Single live birth
CPT/HCPCS: 36415; 85025; 85027; 86850; 86900; 86901; 87641; A9270-GY; J2300; J2550

== ENCOUNTER 2018-02-13 20:44 | Emergency (ER) | payer OTHER ==
[2018-02-13 20:52] VITALS: BP 127/87
--- NOTE | 2018-02-13 21:26 | UC ---
Skin Complaint HPI - HPI Summary HPI Summary: Piercing of umbilicus 2 weeks ago, with onset of pain and purulent discharge yesterday. Has been using a topical antiseptic for the past 2 days. Tonight, drainage is scant. NO fever, nausea, abdominal pain or other skin wounds. Declines removal of piercing. - History of Current Complaint Chief Complaint: UCSkin Time Seen by Provider: 02/13/18 21:15 Stated Complaint: ABD PAIN Hx Obtained From: Patient Hx Last Menstrual Period: END DECEMBER Onset/Duration: Gradual Onset, Lasting Days - 2 Timing: Constant Pain Intensity: 6 Aggravating Factor(s): Touch Alleviating Factor(s): OTC Meds Associated Signs & Symptoms: Positive: Negative - Allergy/Home Medications Allergies/Adverse Reactions: Allergies Allergy/AdvReac Type Severity Reaction Status Date / Time amoxicillin [From Augmentin] Allergy Hives Verified 02/13/18 20:52 azithromycin Allergy Hives Verified 02/13/18 20:52 cefaclor [From Ceclor] Allergy Hives Verified 02/13/18 20:52 clavulanic acid Allergy Hives Verified 02/13/18 20:52 [From Augmentin] Penicillins Allergy Hives Verified 02/13/18 20:52 vancomycin Allergy Hives Verified 02/13/18 20:52 PMH/Surg Hx/FS Hx/Imm Hx Previously Healthy: Yes Other History Of: Negative For: HIV, Hepatitis B, Hepatitis C, Anticoagulant Therapy - Surgical History Surgical History: Yes Surgery Procedure, Year, and Place: tubes in ears. cholecystectomy - Family History Known Family History: Positive: Hypertension, Other - GM carries MRSA Negative: Cardiac Disease, Diabetes Family History: MOM - ULCERS - Social History Alcohol Use: Occasionally Substance Use Type: None Smoking Status (MU): Never Smoked Tobacco Have You Smoked in the Last Year: No - Immunization History Most Recent Influenza Vaccination: 02/22/14 Most Recent Tetanus Shot: 04/26/14 Most Recent Pneumonia Vaccination: none Review of Systems All Other Systems Reviewed And Are Negative: Yes Constitutional: Positive: Negative Skin: Positive: Other - drainage from umbilicus Eyes: Positive: Negative ENT: Positive: Sore Throat Respiratory: Positive: Cough Cardiovascular: Positive: Negative Gastrointestinal: Positive: Negative Genitourinary: Positive: Negative Motor: Positive: Negative Neurovascular: Positive: Negative Musculoskeletal: Positive: Negative Neurological: Positive: Negative Psychological: Positive: Negative Physical Exam Triage Information Reviewed: Yes Appearance: Well-Appearing, Pain Distress - minimal Vital Signs: Initial Vital Signs Temp 98.1 F 02/13/18 20:48 Pulse 74 02/13/18 20:48 Resp 16 02/13/18 20:48 BP 127/87 02/13/18 20:48 Pulse Ox 99 02/13/18 20:48 Vital Signs Reviewed: Yes Eye Exam: Normal ENT: Positive: Pharynx normal Neck: Positive: Supple, Nontender, No Lymphadenopathy Respiratory: Positive: Lungs clear, Normal breath sounds Cardiovascular: Positive: RRR, No Murmur Abdomen Description: Positive: Soft Neurological Exam: Normal Psychological Exam: Normal Skin Exam: Other - umbilicus with piercing with approx 1.4 cm area of erythema with mild induration. Difficulty expressing drainage, no evidence of abscess. Culture collected of minimal drainage. Course/Dx - Course Course Of Treatment: bactrim for cellulitis given past hx of MRSA - Differential Diagnoses - Skin Complaint Differential Diagnoses: Cellulitis, Contact Dermatitis, Urticaria - Diagnoses Provider Diagnosis: Cellulitis and abscess of trunk Discharge - Sign-Out/Discharge Documenting (check all that apply): Patient Departure All imaging exams completed and their final reports reviewed: No Studies - Discharge Plan Condition: Stable Disposition: HOME Prescriptions: Sulfamethox/Trimethoprim DS* [Bactrim DS 800/160 TAB*] 1 tab PO BID #14 tab Patient Education Materials: Cellulitis (ED) Referrals: Myrtle Dumont MD [Primary Care Provider] - Additional Instructions: Continue use of bactrim until culture is reported. You can call for a result in the afternoon of 02/15 if you have not had word. Compress the area with a warm to hot moist compress. Use ibuprofen for pain as needed. - Billing Disposition and Condition Condition: STABLE Disposition: Home
[2018-02-13] MEDS ORDERED: Sulfamethox/Trimethoprim DS 800/160* TAB PO ONE (21:30)
--- NOTE | 2018-02-14 16:02 | UC ---
- Progress Note Progress Note: 02/14/2018 Wound culture negative for MRSA and S.Aureus Pt Rx Bactrim PO awaiting final sensitivity report No change Jemma Mcelroy PA-C Course/Dx - Diagnoses Provider Diagnoses: Cellulitis and abscess of trunk Discharge - Sign-Out/Discharge Documenting (check all that apply): Patient Departure - D/C home All imaging exams completed and their final reports reviewed: No Studies - Discharge Plan Condition: Stable Disposition: HOME Prescriptions: Sulfamethox/Trimethoprim DS* [Bactrim DS 800/160 TAB*] 1 tab PO BID #14 tab Patient Education Materials: Cellulitis (ED) Referrals: Myrtle Dumont MD [Primary Care Provider] - Additional Instructions: Continue use of bactrim until culture is reported. You can call for a result in the afternoon of 02/15 if you have not had word. Compress the area with a warm to hot moist compress. Use ibuprofen for pain as needed. - Billing Disposition and Condition Condition: STABLE Disposition: Home
--- NOTE | 2018-02-15 07:16 | UC ---
- Progress Note Progress Note: MRSA neg S. Aureus neg culture pending pt on bactrim no change [facility] 02/15 Course/Dx - Diagnoses Provider Diagnoses: Cellulitis and abscess of trunk Discharge - Sign-Out/Discharge Documenting (check all that apply): Post-Discharge Follow Up All imaging exams completed and their final reports reviewed: No Studies - Discharge Plan Condition: Stable Disposition: HOME Prescriptions: Sulfamethox/Trimethoprim DS* [Bactrim DS 800/160 TAB*] 1 tab PO BID #14 tab Patient Education Materials: Cellulitis (ED) Referrals: Myrtle Dumont MD [Primary Care Provider] - Additional Instructions: Continue use of bactrim until culture is reported. You can call for a result in the afternoon of 02/15 if you have not had word. Compress the area with a warm to hot moist compress. Use ibuprofen for pain as needed. - Billing Disposition and Condition Condition: STABLE Disposition: Home
== END 2018-02-13 21:48 | disposition home or self-care (01) ==
LOC: UCEAST 20:44
DX: L03.316 Cellulitis of umbilicus (principal); L02.211 Cutaneous abscess of abdominal wall; Z88.0 Allergy status to penicillin; Z88.1 Allergy status to other antibiotic agents
CPT/HCPCS: 87070; 87077; 87205; 87640; 87641; 99212; A9270-GY; G0463

== ENCOUNTER 2018-03-18 21:35 | Emergency (ER) | payer OTHER ==
--- NOTE | 2018-03-18 21:38 | UC ---
Respiratory Complaint HPI - HPI Summary HPI Summary: 22 yo female presents with fatigue, fever, body aches, and cough. She tells me that her symptoms began about a week ago with "cold like symptoms". Over the last 2-3 days has had fatigue, fever, body aches, and a dry cough. She does not smoke. She is not taking anything OTC for her discomfort, but had some left over clindamycin that she has been taking for 4 days TID. She has had some nausea and 2-3 episodes of vomiting. Denies sinus symptoms, sore throat, SOB, chest pain, abdominal pain, dysuria. - History of Current Complaint Stated Complaint: COUGH Hx Obtained From: Patient Hx Last Menstrual Period: END DECEMBER Onset/Duration: Gradual Onset Timing: Constant Severity Initially: Moderate Severity Currently: Moderate Pain Intensity: 6 Pain Scale Used: 0-10 Numeric Character: Cough: Nonproductive - Allergies/Home Medications Allergies/Adverse Reactions: Allergies Allergy/AdvReac Type Severity Reaction Status Date / Time amoxicillin [From Augmentin] Allergy Hives Verified 03/18/18 21:46 azithromycin Allergy Hives Verified 03/18/18 21:46 cefaclor [From Ceclor] Allergy Hives Verified 03/18/18 21:46 clavulanic acid Allergy Hives Verified 03/18/18 21:46 [From Augmentin] Penicillins Allergy Hives Verified 03/18/18 21:46 vancomycin Allergy Hives Verified 03/18/18 21:46 Home Medications: Home Medications Clindamycin Cap(NF) [Clindamycin Cap 300 mg Cap(NF)] 300 mg PO TID 03/18/18 [ History Confirmed 03/18/18] PMH/Surg Hx/FS Hx/Imm Hx - Additional Past Medical History Additional PMH: None Other History Of: Negative For: HIV, Hepatitis B, Hepatitis C, Anticoagulant Therapy - Surgical History Surgical History: Yes Surgery Procedure, Year, and Place: tubes in ears. cholecystectomy - Family History Known Family History: Positive: Hypertension, Other - GM carries MRSA Negative: Cardiac Disease, Diabetes Family History: MOM - [employer] - Social History Alcohol Use: Occasionally Substance Use Type: None Smoking Status (MU): Never Smoked Tobacco Have You Smoked in the Last Year: No - Immunization History Most Recent Influenza Vaccination: 02/22/14 Most Recent Tetanus Shot: 04/26/14 Most Recent Pneumonia Vaccination: none Review of Systems All Other Systems Reviewed And Are Negative: Yes Constitutional: Positive: Fever, Fatigue, Other - Body aches Skin: Positive: Negative Eyes: Positive: Negative ENT: Positive: Negative Respiratory: Positive: Cough Cardiovascular: Positive: Negative Gastrointestinal: Positive: Negative Neurovascular: Positive: Negative Neurological: Positive: Negative Psychological: Positive: Negative Physical Exam - Summary Physical Exam Summary: GENERAL: NAD. WDWN. No pain distress. SKIN: No rashes, sores, lesions, or open wounds. HEENT: Head: AT/NC Eyes: EOM intact. Conjunctiva clear without inflammation or discharge. Ears: Hearing grossly normal. TMs intact, no bulging, erythema, or edema. Nose: Nasal mucosa pink and moist. NTTP maxillary and frontal sinus. Throat: Posterior oropharynx without exudates, erythema, or tonsillar enlargement. Uvula midline. NECK: Supple. Nontender. No lymphadenopathy. CHEST: CTAB. No r/r/w. No accessory muscle use. Breathing comfortably and in no distress. CV: RRR. Without m/r/g. Pulses intact. Cap refill <2seconds ABDOMEN: Soft. NTTP. No distention or guarding. No CVA tenderness. Bowel sounds present NEURO: Alert. PSYCH: Age appropriate behavior. Triage Information Reviewed: Yes Vital Signs: Vital Signs: Temp Pulse Resp BP Pulse Ox 99.2 F 90 18 151/105 100 03/18/18 21:39 03/18/18 21:39 03/18/18 21:39 03/18/18 21:39 03/18/18 21:39 Laboratory Tests 03/18/18 21:49 Influenza A (Rapid) Negative Influenza B (Rapid) Negative Vital Signs Reviewed: Yes Respiratory Course/Dx - Course Course Of Treatment: POC flu negative. Suspect viral illness. Pt is requesting antibiotics, therefore I will have her stop the clindamycin and start doxycycline. For her nausea will rx zofran and tessalon for cough. F/u if symptoms do not improve. - Differential Dx/Diagnosis Provider Diagnosis: Bronchitis Discharge - Sign-Out/Discharge Documenting (check all that apply): Patient Departure All imaging exams completed and their final reports reviewed: No Studies - Discharge Plan Condition: Stable Disposition: HOME Prescriptions: Benzonatate CAP* [Tessalon 100 MG CAP*] 100 mg PO TID PRN #21 cap PRN Reason: Cough DOXYcycline CAP(*) [DOXYcycline 100MG CAP(*)] 100 mg PO BID #14 cap Ondansetron ODT TAB* [Zofran 4 MG Odt TAB*] 4 mg PO Q8H PRN #12 tab.odt PRN Reason: Nausea Patient Education Materials: Acute Bronchitis (ED), Viral Syndrome (ED) Referrals: Myrtle Dumont MD [Primary Care Provider] - Additional Instructions: If you develop a fever, shortness of breath, chest pain, new or worsening symptoms - please call your PCP or go to the ED. Your blood pressure was high at todays visit. Please see your primary provider within 4 weeks for recheck and re-evaluation. - Billing Disposition and Condition Condition: STABLE Disposition: Home
[2018-03-18 21:46] VITALS: BP 151/105
[2018-03-18] MEDS ORDERED: Ondansetron ODT TAB* 4 MG SL ONE (21:51)
[2018-03-18] MEDS ORDERED: Benzonatate CAP* 100 MG PO ONE (22:02)
== END 2018-03-18 22:18 | disposition home or self-care (01) ==
LOC: UCEAST 21:35
DX: J40 Bronchitis, not specified as acute or chronic (principal); Z88.1 Allergy status to other antibiotic agents; Z88.0 Allergy status to penicillin
CPT/HCPCS: 99212; A9270-GY; G0463

== ENCOUNTER 2018-09-28 17:56 | Emergency (ER) | payer SELFPAY ==
--- NOTE | 2018-09-28 18:27 | UC ---
Abdominal Pain Female HPI - HPI Summary HPI Summary: 22 yo female presents with headache and dizziness. She tells me that she was at work today and around noon developed a left sided headache and felt a little dizzy. The dizziness made her nausea and she vomited 3x. Since that time she has not eaten anything due to nausea. She has not taken anything OTC for her symptoms. She does not have a history of migraines or headaches. Her headache and dizziness have persisted, but she has had no more episodes of vomiting. She was feeling well yesterday and this morning. Denies head injury, sinus symptoms , sore throat, cough, SOB, chest pain, abdominal pain, dysuria, vaginal discharge, or back pain. - History of Current Complaint Stated Complaint: HEADACHE, AND VOMITING Hx Obtained From: Patient Hx Last Menstrual Period: December Onset/Duration: Sudden Onset Severity Initially: Moderate Severity Currently: Moderate Pain Intensity: 7 Pain Scale Used: 0-10 Numeric Allergies/Adverse Reactions: Allergies Allergy/AdvReac Type Severity Reaction Status Date / Time amoxicillin [From Augmentin] Allergy Hives Verified 09/28/18 18:28 azithromycin Allergy Hives Verified 09/28/18 18:28 cefaclor [From Ceclor] Allergy Hives Verified 09/28/18 18:28 clavulanic acid Allergy Hives Verified 09/28/18 18:28 [From Augmentin] Penicillins Allergy Hives Verified 09/28/18 18:28 vancomycin Allergy Hives Verified 09/28/18 18:28 Home Medications: Home Medications NK [No Home Medications Reported] 09/28/18 [History Confirmed 09/28/18] PMH/Surg Hx/FS Hx/Imm Hx - Additional Past Medical History Additional PMH: None Other History Of: Negative For: HIV, Hepatitis B, Hepatitis C, Anticoagulant Therapy - Surgical History Surgical History: Yes Surgery Procedure, Year, and Place: tubes in ears. cholecystectomy - Family History Known Family History: Positive: Hypertension, Other - GM carries MRSA Negative: Cardiac Disease, Diabetes Family History: MOM - [employer] - Social History Occupation: Employed Full-time Lives: With Family Alcohol Use: Occasionally Substance Use Type: None Smoking Status (MU): Never Smoked Tobacco Have You Smoked in the Last Year: No - Immunization History Most Recent Influenza Vaccination: 02/22/14 Most Recent Tetanus Shot: 04/26/14 Most Recent Pneumonia Vaccination: none Review of Systems All Other Systems Reviewed And Are Negative: Yes Constitutional: Positive: Negative Skin: Positive: Negative Eyes: Positive: Negative ENT: Positive: Negative Respiratory: Positive: Negative Cardiovascular: Positive: Negative Gastrointestinal: Positive: Vomiting, Nausea Genitourinary: Positive: Negative Motor: Positive: Negative Neurovascular: Positive: Negative Musculoskeletal: Positive: Negative Neurological: Positive: Headache Psychological: Positive: Negative Physical Exam - Summary Physical Exam Summary: GENERAL: NAD. WDWN. No pain distress. SKIN: No rashes, sores, ulcers, masses, lesions. HEENT: Head: AT/NC. Eyes: PERRLA. EOM intact. Conjunctiva clear without inflammation or discharge. Ears: Hearing grossly normal. TMs intact, no bulging, erythema, or edema. Nose: Nasal mucosa pink and moist. NTTP maxillary and frontal sinus. Throat: Posterior oropharynx without exudates, erythema, or tonsillar enlargement. Uvula midline. NECK: Supple. Nontender. FROM CHEST: CTAB. No r/r/w. No accessory muscle use. Breathing comfortably and in no distress. CV: RRR. Without m/r/g. Pulses intact. Brisk cap refill. ABDOMEN: Soft. NTTP. Bowel sounds present MSK: FROM in B/L UEs and LEs with symmetric strength. NEURO: A&Ox3. 3 word recall, remote, recent memory, ability to follow 2-step directions, and attention intact. CN: II: Peripheral fitzgerald intact. Vision normal. III, IV, : EOMI. Mild horizontal nystagmus. PERRLA. V: Sensations intact and symmetric. Opens mouth and clenches teeth. VII: No facial asymmetry. Forehead wrinkles. Grins, shuts eyes, frowns, puffs cheeks. VIII: Hearing intact to finger rub. IX, X: Swallows and coughs. Uvula midline. XI: Shrugs shoulders. Turns head against resistance. XII: No tongue deviation [id number] are intact. Gait with normal base. Romberg: maintains balance, no pronator drift. Normal speech. No facial drooping. PSYCH: Age appropriate behavior. Triage Information Reviewed: Yes Vital Signs: Vital Signs: Temp Pulse Resp BP Pulse Ox 97.4 F 81 16 127/85 100 09/28/18 18:24 09/28/18 18:24 09/28/18 18:24 09/28/18 18:24 09/28/18 18:24 Vital Signs Reviewed: Yes Re-Evaluation - Re-Evaluation First Eval Re-Evaluation Time: 19:43 Change: Improved Comment: Headache and dizziness resolved. No more nausea. No vomiting. Asking to be discharged. Abd Pain Female Course/Dx - Course Course Of Treatment: Urine negative. UA with blood, pt is currently on her period. I discussed with the patient the option of going to the ER for imaging and labwork given her sudden onset headache and vomiting, but she declined. She was given 1L NS, toradol, reglan, and benadryl for her symptoms. She refused meclizine. CT brain: IMPRESSION: NO ACUTE INTRACRANIAL PATHOLOGY. After about 600cc of fluids and medications - she had complete resolution of her symptoms and had no headache or dizziness. She was ambulating without assistance or difficulty and was tolerating po water well. No episodes of vomiting. Will dc with dx of migraine. Advised to go to the ED if her symptoms return or if she develops new symptoms. - Differential Dx/Diagnosis Provider Diagnosis: Migraine Discharge - Sign-Out/Discharge Documenting (check all that apply): Patient Departure All imaging exams completed and their final reports reviewed: Yes - Discharge Plan Condition: Stable Disposition: HOME Patient Education Materials: Migraine Headache (ED) Forms: *Work Release Referrals: Myrtle Dumont MD [Primary Care Provider] - Additional Instructions: If you develop a fever, shortness of breath, chest pain, new or worsening symptoms - please call your PCP or go to the ED immediately. - Billing Disposition and Condition Condition: STABLE Disposition: Home
[2018-09-28 18:28] VITALS: BP 127/85
[2018-09-28] MEDS ORDERED: NS 0.9% 1000 ML** 1,000 ML IV ONE (18:44)
[2018-09-28] MEDS ORDERED: Ketorolac INJ* 30 MG/ML 1 ML VIAL IV ONE (18:44)
[2018-09-28] MEDS ORDERED: diPHENhydraMINE IV* 50 MG/ML 1 ml VIAL (BENADRYL) IV ONE (18:44)
[2018-09-28] MEDS ORDERED: Metoclopramide IV* 5 MG/ML 2 ML VIAL IV ONE (18:44)
[2018-09-28] MEDS ORDERED: Meclizine TAB* 12.5 MG PO ONE (19:04)
== END 2018-09-28 19:45 | disposition home or self-care (01) ==
LOC: UCEAST 17:56
DX: G43.909 Migraine, unspecified, not intractable, without status migrainosus (principal); Z88.0 Allergy status to penicillin
CPT/HCPCS: 70450; 81002; 81025; 96360; 96374; 96375; 99211; A9270-GY; G0463; J1200; J1885; J2765

== ENCOUNTER 2021-03-05 02:51 | Inpatient (IN) ==
[2021-03-05] MEDS ORDERED: Buffered Lidocaine 1% SYRIN 1 ml INTRADERM ONE (04:05)
[2021-03-05] MEDS ORDERED: Lactated Ringers 1000 ml BAG 1,000 ML IV ONE ×2 (04:05→06:23)
[2021-03-05] MEDS ORDERED: OBEPIDURAL 250 ML EPIDURAL ONE (04:47)
[2021-03-05 04:55] LABS: ABS Basophils 0.1 10^3/ul (0-0.2); ABS Eosinophils 0.2 10^3/ul (0-0.6); ABS Monocytes 1.2 10^3/ul (0-0.8); ABS Neutrophils 11.9 10^3/ul (1.5-7.7); Eosinophil % 1.5 %; Hematocrit 32 % (35-47); Hemoglobin 10.3 g/dL (12.0-16.0); Lymphocyte % 13.1 %; Mean Corpuscular HGB Conc 32 g/dL (31-36); Mean Corpuscular Hemoglobin 26 pg (27-31); Mean Corpuscular Volume 80 fL (80-97); Mean Platelet Volume 7.4 fL (7.4-10.4); Platelet Count 293 10^3/uL (150-450); Red Blood Count 3.96 10^6 /uL (3.70-4.87); Red Cell Distribution Width 15 % (10-15); White Blood Count 15.4 10^3/uL (3.5-10.8)
[2021-03-05 05:00] LABS: Albumin 3.4 g/dL (3.2-5.2); Albumin/Globulin Ratio 1.2 (1-3); Calcium 8.6 mg/dL (8.6-10.3); Globulin 2.8 g/dL (2-4); Potassium 3.8 mmol/L (3.5-5.0); Total Bilirubin 0.3 mg/dL (0.2-1.0); Total Protein 6.2 g/dL (6.4-8.9); Uric Acid 2.7 mg/dL (2.3-6.6); eGFR CKD-EPI 129.9 (>60)
[2021-03-05] MEDS ORDERED: Lactated Ringers 1000 ml BAG 1,000 ML IV SCH ×3 (05:00→07:00)
[2021-03-05 05:05] LABS: Urine Benzodiazepine Screen None Detected (None Detect); Urine Cannabinoids Screen None Detected (None Detect); Urine Opiates Screen None Detected (None Detect)
[2021-03-05] MEDS ORDERED: Bupivacaine 0.25% SDV PF 10 ML VIAL INJ ONE (05:24)
[2021-03-05] MEDS ORDERED: fentaNYL 100 mcg/2 ml 50 MCG/ML VIAL ONE (05:24)
[2021-03-05] MEDS ORDERED: Oxytocin in LR 20 UNITS/1,000 ML BAG IVPB ONE (06:15)
[2021-03-05] MEDS ORDERED: Phenylephrine 40 mcg/mL 10mL (400mcg) SYRINGE IV PUSH PRN ×2 (06:23)
[2021-03-05] MEDS ORDERED: Sodium Citrate/Citric Acid LIQ 15 ML UDC PO PRN (06:23)
[2021-03-05] MEDS ORDERED: Lactated Ringers 1000 ml BAG 500 ML IV PRN ×2 (06:23)
[2021-03-05] MEDS ORDERED: Witch Hazel PAD JAR TOPICAL PRN (06:48)
[2021-03-05] MEDS ORDERED: Dibucaine 1% OINT 28.35 GM TUBE PR PRN (06:48)
[2021-03-05] MEDS ORDERED: OBEPIDURAL 250 ML EPIDURAL SCH (07:00)
[2021-03-05] MEDS ORDERED: Oxytocin in LR 20 UNITS/1,000 ML BAG IVPB SCH (07:00)
[2021-03-05] MEDS ORDERED: Phenylephrine 40 mcg/mL 10mL (400mcg) SYRINGE ONE (10:04)
[2021-03-06 07:02] LABS: ABS Basophils 0.1 10^3/ul (0-0.2); ABS Eosinophils 0.2 10^3/ul (0-0.6); ABS Monocytes 0.8 10^3/ul (0-0.8); ABS Neutrophils 9.4 10^3/ul (1.5-7.7); Eosinophil % 1.7 %; Hematocrit 26 % (35-47); Hemoglobin 8.6 g/dL (12.0-16.0); Lymphocyte % 22.3 %; Mean Corpuscular HGB Conc 33 g/dL (31-36); Mean Corpuscular Hemoglobin 27 pg (27-31); Mean Corpuscular Volume 80 fL (80-97); Mean Platelet Volume 7.4 fL (7.4-10.4); Platelet Count 272 10^3/uL (150-450); Red Blood Count 3.22 10^6 /uL (3.70-4.87); Red Cell Distribution Width 15 % (10-15); White Blood Count 13.5 10^3/uL (3.5-10.8)
[2021-03-06 09:17] VITALS: BP 125/80
== END 2021-03-06 18:21 | disposition home or self-care (01) | DRG 560 ==
LOC: MCHOBOUT 02:51 → MCHOB 04:10
PROVIDERS: ADMIT Midwife; ATTEND Midwife